=== PATIENT | male | born 1970 | race Caucasian/White ===

== ENCOUNTER 2016-04-05 17:28 | Inpatient (IN) | payer MEDICARE, OTHER ==
[~2016-04-05] VITALS: Ht 177.8 cm; Wt 89.1 kg
[~2016-04-05 17:28] MED LIST: ASPI81 PO; ATOR10 PO; CELL500T PO; METO50TA PO; OMEP20CA5 PO; PRED5SOL PO; PROG1CAP PO
[2016-04-05 20:00] VITALS: BP 140/81; PULSE 68; RESP 22; TEMP 98.5; O2SAT 100
[2016-04-05] MEDS ORDERED: SODIUM CHLOR 0.9% 1000 ML INJ 1,000 ML IV ONE (20:17)
[2016-04-05] MEDS ORDERED: MYCOPHENOLATE MOFETIL 500 MG TAB PO SCH (20:30)
[2016-04-05] MEDS: LACTATED RINGER'S 1000 ML IV SCH (21:00)
[2016-04-05] MEDS: SODIUM CHLORID 0.9% 500 ML IV SCH (21:00)
--- NOTE | 2016-04-05 21:04 | RADRPT ---
EXAM DATE/TIME: 04/05/2016 20:34 [facility] COMPARISON: No previous studies available for comparison. INDICATIONS : Chest pain MEDICAL HISTORY : Hypertension. SURGICAL HISTORY : CABG. ENCOUNTER: Initial ACUITY: 1 day PAIN SCORE: 0/10 LOCATION: chest FINDINGS: A single view of the chest demonstrates the lungs to be symmetrically aerated without evidence of mas s, infiltrate or effusion. The cardiomediastinal contours are unremarkable. Osseous structures are intact. The patient is status post median sternotomy. CONCLUSION: No acute disease. Jose Cruz Mayers MD on April 05, 2016 at 21:02 Board Certified Radiologist. This report was verified electronically.
[2016-04-05 21:51] LABS: AUTOMATED NEUTROPHIL # 4.4 TH/MM3 (1.8-7.7); BASOPHIL # 0.1 TH/MM3 (0-0.2); EOSINOPHIL # 0.2 TH/MM3 (0-0.4); EOSINOPHIL % 3.1 % (0.0-4.0); HEMATOCRIT 29.7 % (39.0-51.0); HEMO FLAGS DIFF FINAL; LYMPH % 22.7 % (9.0-44.0); LYMPHOCYTE # 1.6 TH/MM3 (1.0-4.8); MEAN CELL VOLUME 89.4 FL (80.0-100.0); MEAN CORPUSCULAR HEMOGLOBIN 28.7 PG (27.0-34.0); MEAN CORPUSCULAR HGB CONC 32.1 % (32.0-36.0); MONO % 12.1 % (0.0-8.0); NEUT % 61.1 % (16.0-70.0); PLATELET COUNT 224 TH/MM3 (150-450); RED BLOOD COUNT 3.32 MIL/MM3 (4.50-5.90); RED CELL DISTRIBUTION WIDTH 15.5 % (11.6-17.2); WHITE BLOOD COUNT 7.1 TH/MM3 (4.0-11.0)
[2016-04-05 22:14] LABS: APTT (PATIENT) 31.1 SEC (24.3-30.1); PROTHROMBIN TIME - PATIENT 11.4 SEC (9.8-11.6)
[2016-04-05 22:19] LABS: ANION GAP 11 MEQ/L (5-15); AST (GOT) 7 U/L (15-37); BICARBONATE 25.9 MEQ/L (21.0-32.0); BLOOD UREA NITROGEN 22 MG/DL (7-18); CHLORIDE 101 MEQ/L (98-107); GLOMERULAR FILTRATION RATE 9 ML/MIN (>89); POTASSIUM 4.7 MEQ/L (3.5-5.1); SODIUM (NA) 138 MEQ/L (136-145)
[2016-04-05 22:23] LABS: ALKALINE PHOSPHATASE 123 U/L (45-117); ALT (GPT) 16 U/L (12-78); TOTAL BILIRUBIN ADULT 0.4 MG/DL (0.2-1.0)
[2016-04-05] MEDS ORDERED: methylPREDNISolone SOD SUCC 125 MG/2 ML VIAL ONE (22:47)
[2016-04-05] MEDS ORDERED: diphenhydrAMINE HCL 50 MG/ML VIAL ONE (22:47)
[2016-04-05] MEDS ORDERED: MINERAL OIL 10 ML VIAL ONE (23:45)
[2016-04-05] MEDS ORDERED: SODIUM BICARBONATE 8.4% INJ 50 ML ONE (23:45)
[2016-04-05] MEDS ORDERED: LIDOCAINE HCL 2% 50 ML VIAL ONE (23:45)
[2016-04-05] MEDS ORDERED: BUPIVACAINE HCL PF 0.5% 30 ML VIAL ONE (23:45)
[2016-04-06] VITALS (18 sets, daily range): BP systolic 100–149; BP diastolic 59–75; PULSE 72–128; RESP 16–20; TEMP 98.1–101; O2SAT 96–100
[2016-04-06] MEDS ORDERED: ACETAMINOPHEN 1000 MG/100 ML VIAL IV ONE (00:27)
[2016-04-06] MEDS ORDERED: SODIUM CHLOR 0.9% IV SCH (00:30)
[2016-04-06] MEDS ORDERED: ANTITHYMOCYTE GLOB IV SCH (00:30)
[2016-04-06] MEDS ORDERED: diphenhydrAMINE HCL 50 MG/ML VIAL IV PRN ×2 (00:45→08:15)
[2016-04-06] MEDS ORDERED: SODIUM CHLORID 0.9% IRRIGATION ONE (01:00)
[2016-04-06] MEDS ORDERED: BACITRACIN IRRIGATION ONE (01:00)
[2016-04-06] MEDS: ceFAZolin 2 GM PREMIX 50 ML IV SCH ×2 (01:54→07:00)
[2016-04-06] MEDS ORDERED: methylPREDNISolone SOD SUCC 125 MG/2 ML VIAL ONE (02:08)
[2016-04-06] MEDS ORDERED: BUPIVACAINE HCL PF 0.5% 30 ML VIAL INFIL ONE (02:10)
[2016-04-06] MEDS ORDERED: SODIUM BICARBONATE 8.4% SOLN 50 MEQ/50 ML VIAL XX ONE (02:10)
[2016-04-06] MEDS ORDERED: LIDOCAINE HCL 2% 50 ML VIAL INFIL ONE (02:10)
[2016-04-06] MEDS ORDERED: HEPARIN SODIUM - SQ 10,000 UNITS/ML VIAL ONE (04:02)
[2016-04-06] MEDS ORDERED: HEPARIN SODIUM - SQ 10,000 UNITS/ML VIAL OTHER ONE (04:16)
[2016-04-06 05:00] LABS: BLOOD GAS BASE EXCESS -4.1 mmol/L (-2-2); BLOOD GAS CARBOXYHEMOGLOBIN 1.8 % (0-4); BLOOD GAS HCO3 20 mmol/L (22-26); BLOOD GAS METHEMOGLOBIN 1.2 % (0-2); BLOOD GAS O2 HGB SATURATION 96 % (90-100); BLOOD GAS OXYGEN CONTENT 13.7 Vol % (12.0-20.0); BLOOD GAS PCO2 36 mmHg (38-42); BLOOD GAS PO2 235 mmHg (61-120); BLOOD GAS TOTAL HGB 9.7 G/DL (12.0-16.0); CRITICAL VALUE NO; OXYGEN DEVICE VENTILATOR; TEMP CORR TO 98.6
[2016-04-06 05:01] LABS: DRAW SITE ART LINE; FIO2 55 %; STAT YES
--- NOTE | 2016-04-06 07:31 | MH ---
cc: SEAN NICOLE MD DATE OF ADMISSION: 04/05/2016 ADMITTING DIAGNOSIS HISTORY OF PRESENT ILLNESS Mr. Newman is a 45-year-old male with end-stage renal disease. 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 He at this time undergoes hemodialysis through a left upper extremity AV fistula. His last dialysis was this morning. He states that he makes a scant amount of urine. He is on no immunosuppressive agents anymore. Most recently he had a CABG in May of 2015. He received cardiac clearance in January of 2016. More recently he denies any recent fevers, chills, nausea, vomiting or diarrhea. He has had some scabs on his skin from pruritus. He is breathing comfortably on room air. They will be seeing him to check his vital signs but he is not tachycardiac and he is on room air. PHYSICAL EXAMINATION HEENT: On his physical exam he has moist mucosal membranes. Lungs: Clear to auscultation, good breath sounds bilaterally. Cardiac: Exam shows him to have a regular rate and rhythm. S1-S2, without any murmurs or gallops or rubs. Abdomen: Soft, nontender, nondistended, without any tenderness. His right lower quadrant appears without any lesions or any infection. He has no lower extremity or upper edema. He has some, as mentioned, scabbed areas from him scratching his skin but no none appear infected. He has no lower extremity edema. He has distal pulses palpable at both dorsalis pedis. ASSESSMENT AND PLAN His crossmatch was negative. The kidney has arrived and we await the results of his labs prior to him going to the OR. He has consented for the procedure and he is well aware of the indications, risks and benefits as well as the pre, gualberto and postop events surrounding the procedure. He understands the potential complications. I answered all of his questions as well as his mother's questions as she was also in the room. He will receive mycophenolate and his thymoglobulin order will be relayed to us from on Dr. Romano. Sean Nicole MD RBM/SSB /8:34 PM /7:20 AM
[2016-04-06 07:40] LABS: BLOOD GAS CARBOXYHEMOGLOBIN 1.4 % (0-4); BLOOD GAS HCO3 19 mmol/L (22-26); BLOOD GAS METHEMOGLOBIN 1.3 % (0-2); BLOOD GAS O2 HGB SATURATION 97 % (90-100); BLOOD GAS OXYGEN CONTENT 19.5 Vol % (12.0-20.0); BLOOD GAS PCO2 40 mmHg (38-42); BLOOD GAS PO2 259 mmHg (61-120); BLOOD GAS TOTAL HGB 13.9 G/DL (12.0-16.0); CRITICAL VALUE NO; FIO2 55 %; STAT YES; TEMP CORR TO 98.6
[2016-04-06] MEDS ORDERED: SODIUM CHLOR 0.45% 1000 ML INJ 1,000 ML IV SCH (08:05)
[2016-04-06] MEDS ORDERED: MIDAZOLAM HCL 2 MG/2 ML VIAL ONE (08:10)
[2016-04-06] MEDS ORDERED: fentaNYL CITRATE 250 MCG/5 ML AMP ONE ×2 (08:11)
[2016-04-06] MEDS ORDERED: GLUCAGON 1 MG/ML VIAL OTHER PRN (08:15)
[2016-04-06] MEDS ORDERED: RESP: ALBUTEROL 2.5 MG/IPRATROPIUM 0.5 MG NEB (PRN) INH (08:15)
[2016-04-06] MEDS ORDERED: ONDANSETRON HCL 4 MG/2 ML VIAL IV PRN (08:15)
[2016-04-06] MEDS ORDERED: NALOXONE HCL 0.4 MG/ML AMP IV PRN (08:15)
[2016-04-06] MEDS ORDERED: diphenhydrAMINE HCL 25 MG CAP PO PRN (08:15)
[2016-04-06] MEDS ORDERED: ONDANSETRON INJ 8 MG in DEXTROSE 5% IN WATER INJ 50 ML IV PRN ×2 (08:15)
[2016-04-06] MEDS ORDERED: DEXTROSE 50% IN WATER 50 ML VIAL(D50) IV PUSH PRN (08:15)
[2016-04-06] MEDS ORDERED: DO NOT ADM ANY ANTICOAGULANT DRUGS XX PRN (08:30)
[2016-04-06] MEDS ORDERED: MORPHINE SULFATE 30 MG/30 ML PCA ONE (08:53)
[2016-04-06] MEDS: DEXT 5%-NACL 0.45% 1000 ML INJ 1,000 ML IV SCH (09:00)
[2016-04-06] MEDS: NYSTATIN SUSP 500,000 U/5 ML CUP SWISH-SWAL SCH ×3 (09:00→20:54)
[2016-04-06] MEDS: DOCUSATE SODIUM 100 MG CAP PO SCH ×2 (09:00→20:54)
[2016-04-06] MEDS: CALCIUM CARBONATE 500 MG CHEWABLE TAB CHEW SCH ×2 (09:00→16:05)
[2016-04-06] MEDS: PANTOPRAZOLE SODIUM 40 MG VIAL IV PUSH SCH (09:00)
[2016-04-06] MEDS: MORPHINE SULFATE 30 MG/30 ML PCA IV SCH ×3 (09:14→10:20)
[2016-04-06 09:18] LABS: AUTOMATED NEUTROPHIL # 3.3 TH/MM3 (1.8-7.7); LYMPH % 0.7 % (9.0-44.0); MEAN CELL VOLUME 90.1 FL (80.0-100.0); MEAN CORPUSCULAR HGB CONC 32.2 % (32.0-36.0); MONO % 0.8 % (0.0-8.0); NEUT % 98.5 % (16.0-70.0); PLATELET COUNT 153 TH/MM3 (150-450); RED BLOOD COUNT 2.89 MIL/MM3 (4.50-5.90); RED CELL DISTRIBUTION WIDTH 15.5 % (11.6-17.2); WHITE BLOOD COUNT 3.3 TH/MM3 (4.0-11.0)
[2016-04-06 09:24] LABS: HEMO FLAGS AUTO DIFF
[2016-04-06 09:40] LABS: BICARBONATE 20.3 MEQ/L (21.0-32.0); MAGNESIUM 1.9 MG/DL (1.5-2.5); POTASSIUM 4.8 MEQ/L (3.5-5.1)
--- NOTE | 2016-04-06 09:42 | RADRPT ---
EXAM DATE/TIME: 04/06/2016 08:42 [facility] COMPARISON: CHEST SINGLE AP, April 05, 2016, 20:34. INDICATIONS: Evaluate line placement MEDICAL HISTORY: Hypertension. Renal failure SURGICAL HISTORY: CABG. ENCOUNTER: Subsequent ACUITY: 1 day PAIN SCORE: Non-responsive. LOCATION: Bilateral chest FINDINGS: A left internal jugular central line has its tip in the superior vena cava. There is no pneumothorax . Median sternotomy wires are noted status post cardiac surgery. The heart is enlarged. Mild centr al pulmonary vascular congestion is noted. CONCLUSION: 1. Left internal jugular central line has its tip in the superior vena cava. There is no pneumothor ax. 2. Cardiomegaly. 3. Mild central pulmonary vascular congestion. Axel Cabral MD on April 06, 2016 at 9:34 Board Certified Radiologist. This report was verified electronically.
[2016-04-06 09:53] LABS: CALCIUM-PROTEIN CORRECTED 7.8 MG/DL (8.5-10.1)
[2016-04-06 10:07] LABS: BANDS 10 % (0-6); NEUTROPHIL # MANUAL DIFF 3.3 TH/MM3 (1.8-7.7); OVALOCYTES 1+ (NORMAL); PLATELET ESTIMATE SMEAR NORMAL (NORMAL); PLATELET MORPHOLOGY NORMAL (NORMAL); POLYS (SEG NEUTROPHILS) 89 % (16-70); SCAN/DIFF FINAL DIFF MANUAL; WBC DIFF SAMPLE 100
[2016-04-06] MEDS: INSULIN NovoLIN REGULAR SUPPLEMENTAL SCALE SQ SCH ×3 (10:47→20:54)
--- NOTE | 2016-04-06 11:50 | PD.CONS ---
HPI Service Nephrology Consult Requested By Dr. Nicole Reason for Consult Kidney transplant Primary Care Physician Unknown History of Present Illness Patient is a 45-year-old male with history of previous kidney transplant which failed and he is on hemodialysis has AV fistula left arm, he received a cadaveric kidney transplant offer last night and got admitted to this was carried out early in the morning and that he did well, he did lose blood and his hemoglobin is 8.4, patient is sleeping but arouses with stimulation, he has a previous coronary artery bypass grafting done last year., He is passing small amount of urine postoperatively, his induction was with Solu-Medrol, Thymoglobulin and CellCept, he had previous chronic rejection and is on hemodialysis. Review of Systems Constitutional: COMPLAINS OF: Fatigue Gastrointestinal: COMPLAINS OF: Abdominal pain Past Family Social History Allergies: Coded Allergies: Compazine (Verified Allergy, Severe, 04/08/10) Past Medical History History of lupus Hypertension End-stage renal disease Previous living kidney transplant Atrial fibrillation Coronary artery disease Hyperlipidemia Gout Past Surgical History Previous kidney transplant Coronary artery bypass grafting Left AV fistula Left elbow surgery due to gouty arthritis Reported Medications Reported Meds & Active Scripts Active Reported Prilosec (Omeprazole) 20 Mg Capcr 20 Mg PO DAILY Lipitor (Atorvastatin Calcium) 10 Mg Tab 10 Mg PO HS Lopressor (Metoprolol Tartrate) 50 Mg Tab 50 Mg PO BID Prograf (Tacrolimus) 1 Mg Cap 2 Mg PO DAILY Deltasone (Prednisone) 5 Mg/5 Ml Soln 20 Mg PO DAILY Lipitor (Atorvastatin Calcium) 10 Mg Tab 0 PO DAILY UNKNOWN DOSE Aspirin 81 Mg Tab 81 Mg PO DAILY Cellcept (Mycophenolate Mofetil) 500 Mg Tab 1,000 Mg PO BID Active Ordered Medications Current Medications Medications (Trade) Dose Ordered Sig/Kaylan Route Start Time Stop Time Status Last Admin Sodium Chloride 1,000 ml @ 40 mls/hr Q24H ONCE IV 04/05/16 20:17 04/06/16 20:16 04/05/16 20:17 Lactated Ringer's 1,000 ml @ 30 mls/hr Q24H IV 04/05/16 21:00 Sodium Chloride 500 ml @ 30 mls/hr [id number] IV 04/05/16 21:00 04/06/16 20:59 Dextrose/Sodium Chloride 1,000 ml @ 40 mls/hr Q24H IV 04/06/16 08:05 04/06/16 09:00 (1/2 NS 1000 ml Inj) 1,000 ml @ 0 mls/hr Q0M IV 04/06/16 08:05 (Cellcept) 1,000 mg BID@,18 PO 04/07/16 06:00 (Mycostatin Liq) 5 ml TID@,, SWISH-SWAL 04/06/16 09:00 (Bactrim Ds 800-160 Mg) 1 tab MoWeFr@09 PO 04/07/16 09:00 Valganciclovir 900 mg 900 mg DAILY PO 04/06/16 09:00 (Ancef Inj/NS Inj) 100 ml @ 200 mls/hr Q24H IV 04/07/16 02:00 04/08/16 02:29 (Protonix Inj) 40 mg DAILY IV PUSH 04/06/16 09:00 (Tums Chew) 500 mg BID@,16 CHEW 04/06/16 09:00 (Colace) 100 mg BID PO 04/06/16 09:00 (Dulcolax Ec) 10 mg UNSCH PRN PO 04/09/16 08:15 04/09/16 08:16 (Dulcolax Supp) 10 mg UNSCH PRN RECTAL 04/09/16 08:15 04/09/16 08:16 Ondansetron HCl 4 mg 4 mg Q6H PRN IV 04/06/16 08:15 (Zofran Inj/D5W Inj) 54 ml @ 200 mls/hr Q6H PRN IV 04/06/16 08:15 (Benadryl) 25 mg Q6H PRN PO 04/06/16 08:15 (Benadryl Inj) 25 mg Q6H PRN IV 04/06/16 08:15 (Narcan Inj) 0.4 mg UNSCH PRN IV 04/06/16 08:15 (Morphine 1 Mg/ ml CALCINER FEEDER) 30 mg UNSCH IV 04/06/16 08:15 04/06/16 09:14 CALCINER FEEDER Dosage Infused (Pha) 1 Q8HR .XX 04/06/16 14:00 (D50w (Vial) Inj) 25 ml UNSCH PRN IV PUSH 04/06/16 08:15 (Glucagon Inj) 1 mg UNSCH PRN OTHER 04/06/16 08:15 Miscellaneous Information ALL NURSING DEPARTME... UNSCH PRN XX 04/06/16 08:30 04/07/16 08:29 Family History Noncontributory Social History Denies smoking or alcohol use Physical Exam Vital Signs Vital Signs Date Time Temp Pulse Resp B/P Pulse Ox O2 Delivery O2 Flow Rate FiO2 04/06/16 11:08 100.6 111 18 146/74 100 04/06/16 11:06 111 04/06/16 10:32 114 04/06/16 10:28 99 Nasal Cannula 3.00 04/06/16 10:26 101.0 116 20 149/75 99 04/06/16 10:20 18 04/06/16 09:45 99.0 105 15 158/87 99 Nasal Cannula 2 04/06/16 09:30 107 13 155/87 99 Nasal Cannula 2 04/06/16 09:15 100 16 150/84 95 Nasal Cannula 2 04/06/16 09:14 15 04/06/16 09:00 102 14 158/86 98 Nasal Cannula 2 04/06/16 09:00 04/06/16 08:45 105 15 156/87 98 Nasal Cannula 2 04/06/16 08:32 99.2 111 16 123/77 99 Simple Mask 6 04/06/16 00:00 72 04/05/16 20:00 98.5 68 22 140/81 100 Physical Exam GENERAL: Well-nourished, well-developed patient. SKIN: Warm and dry. HEAD: Normocephalic. EYES: No scleral icterus. No injection or drainage. NECK: Supple, trachea midline. No JVD or lymphadenopathy. CARDIOVASCULAR: Regular rate and rhythm without murmurs, gallops, or rubs. RESPIRATORY: Breath sounds equal bilaterally. No accessory muscle use. GASTROINTESTINAL: Abdomen soft, surgical scar on the left side, nondistended. EXTREMITIES: No cyanosis, or edema. NEUROLOGICAL: Sleeping Awaken on verbal stimuli, alert, and oriented x 3. Non- focal. Laboratory Laboratory Tests Test 04/05/16 04/06/16 04/06/16 04/06/16 21:15 04:37 07:09 09:00 White Blood Count 7.1 3.3 Red Blood Count 3.32 2.89 Hemoglobin 9.5 8.4 Hematocrit 29.7 26.0 Mean Corpuscular Volume 89.4 90.1 Mean Corpuscular Hemoglobin 28.7 29.0 Mean Corpuscular Hemoglobin 32.1 32.2 Concent Red Cell Distribution Width 15.5 15.5 Platelet Count 224 153 Mean Platelet Volume 8.8 8.6 Neutrophils (%) (Auto) 61.1 98.5 Lymphocytes (%) (Auto) 22.7 0.7 Monocytes (%) (Auto) 12.1 0.8 Eosinophils (%) (Auto) 3.1 0.0 Basophils (%) (Auto) 1.0 0.0 Neutrophils # (Auto) 4.4 3.3 Lymphocytes # (Auto) 1.6 0.0 Monocytes # (Auto) 0.9 0.0 Eosinophils # (Auto) 0.2 0.0 Basophils # (Auto) 0.1 0.0 CBC Comment DIFF FINAL AUTO DIFF Differential Comment FINAL DIFF MANUAL Prothrombin Time 11.4 Prothromb Time International 1.0 Ratio Activated Partial 31.1 Thromboplast Time Sodium Level 138 140 Potassium Level 4.7 4.8 Chloride Level 101 108 Carbon Dioxide Level 25.9 20.3 Anion Gap 11 12 Blood Urea Nitrogen 22 27 Creatinine 6.77 7.42 Estimat Glomerular Filtration 9 8 Rate Random Glucose 76 86 Calcium Level 7.9 7.3 Total Bilirubin 0.4 Aspartate Amino Transf 7 (AST/SGOT) Alanine Aminotransferase 16 (ALT/SGPT) Alkaline Phosphatase 123 Total Protein 7.3 6.1 Albumin 3.5 Blood Type O POSITIVE Antibody Screen NEGATIVE Crossmatch Leukocyte-Reduced Red Blood Cells Blood Bank Comment Blood Gas Puncture Site ART LINE DRAWN IN OR Blood Gas Patient Temperature 98.6 98.6 Blood Gas HCO3 20 19 Blood Gas Base Excess -4.1 -6.0 Blood Gas Oxygen Saturation 96 97 Arterial Blood pH 7.37 7.31 Arterial Blood Partial 36 40 Pressure CO2 Arterial Blood Partial 235 259 Pressure O2 Arterial Blood Oxygen Content 13.7 19.5 Arterial Blood 1.8 1.4 Carboxyhemoglobin Arterial Blood Methemoglobin 1.2 1.3 Blood Gas Hemoglobin 9.7 13.9 Oxygen Delivery Device VENTILATOR Blood Gas Ventilator Setting Blood Gas Inspired Oxygen 55 55 Differential Total Cells 100 Counted Neutrophils % (Manual) 89 Band Neutrophils % 10 Lymphocytes % 1 Neutrophils # (Manual) 3.3 Platelet Estimate NORMAL Platelet Morphology Comment NORMAL Ovalocytes 1+ Protein Corrected Calcium 7.8 Phosphorus Level 4.0 Magnesium Level 1.9 Result Diagram: 04/06/16 0900 04/06/16 0900 Imaging Last Impressions Chest X-Ray 04/06/16 0000 Signed Impressions: Service Date/Time: Wednesday, April 06, 2016 08:42 - CONCLUSION: 1. Left internal jugular central line has its tip in the superior vena cava. There is no pneumothorax. 2. Cardiomegaly. 3. Mild central pulmonary vascular congestion. Axel Cabral MD Assessment and Plan Problem List: (1) Kidney transplant status, cadaveric Plan: Patient received kidney transplant and we will continue to monitor his progress urine output is low and this is being monitored, he will receive Thymoglobulin and steroids tomorrow as well maintain on current medications, he did have some side effects from Thymoglobulin and developed fever, white blood cell count is lower , hemoglobin is 8.4 and this is being observed I have discussed with Dr. Nicole (2) Hypertension Plan: Blood pressure is stable Sylvester Romano MD Apr 06, 2016 11:50
[2016-04-06] MEDS ORDERED: ePHEDrine/NS 50 MG/5 ML SYR IV ONE (12:00)
[2016-04-06] MEDS ORDERED: PHENYLEPH/NS 1000 MCG/10 ML SYR IV ONE (12:00)
[2016-04-06] MEDS ORDERED: NEOSTIGMINE 3 MG/3 ML SYR IV ONE (12:00)
[2016-04-06] MEDS ORDERED: PROPOFOL 200 MG/20 ML AMP IV ONE (12:00)
[2016-04-06] MEDS ORDERED: SODIUM CHLOR 0.9% 1000 ML INJ 3,000 ML IV ONE (12:00)
[2016-04-06] MEDS ORDERED: ONDANSETRON HCL 4 MG/2 ML VIAL IV PUSH ONE (12:00)
[2016-04-06] MEDS: SODIUM CHLORID 0.9% 500 ML IV SCH (12:50)
[2016-04-06] MEDS ORDERED: METOPROLOL TARTRATE 5 MG/5 ML VIAL ONE (13:23)
[2016-04-06] MEDS ORDERED: DILTIAZEM HCL 25 MG/5 ML VIAL ONE (13:43)
[2016-04-06] MEDS: PCA - TOTAL MG MORPHINE DELIVERED PER SHIFT SCH ×2 (14:00→22:00)
--- NOTE | 2016-04-06 14:17 | EKG ---
Date Performed: 04/05/2016 Time Performed: 21:03:48 PTAGE: 45 years EKG: Sinus rhythm with borderline 1st degree A-V block Prolonged QT interval Extensive ST-T changes may be due to myoc ardial ischemia Since previous tracing, no significant change noted Abnormal ECG PREVIOUS TRACING : 04/08/2010 18.11 DOCTOR: oM Graham Interpretating Date/Time 04/06/2016 14:07:29
[2016-04-06] MEDS ORDERED: METOPROLOL TARTRATE 50 MG TAB ONE (14:32)
[2016-04-06] MEDS ORDERED: DILTIAZEM HCL 25 MG/5 ML VIAL IV ONE (15:00)
[2016-04-06] MEDS: LACTATED RINGER'S 1000 ML IV SCH (21:00)
--- NOTE | 2016-04-06 21:11 | MP ---
cc: FARAZ GALINDO MD DATE OF SURGERY: 04/06/2016 PREOPERATIVE DIAGNOSIS: Chronic renal failure. POSTOPERATIVE DIAGNOSIS: Chronic renal failure. OPERATIVE PROCEDURE Exploration of the external iliac artery, endarterectomy of the external iliac artery on the left, and anastomosis of renal allograft to the external iliac artery. SURGEON Dr. Galindo BUNCHER HAND: Dr. Nicole. ANESTHESIA: General. ESTIMATED BLOOD LOSS: 100 cc INDICATIONS FOR PROCEDURE This gentleman is undergoing renal transplant to the left renal inguinal by Dr. Nicole. I was called to assist with this particular part of the procedure as above-noted. On my arrival, the patient was already prepped and draped and the vessels were exposed. The external iliac artery is now visualized, so is the external iliac vein. The vein is soft. On the other hand, the artery is like a lead pipe. It is very atherosclerotic with firm material in it. The soft spot is found, which is sort of soft and distally, and this would allow for placement to find DeBakey clamp proximally. The patient has a huge plaque and then another softer spot is found about three inches up. Here another angled Donald clamp is placed. The vessels are opened longitudinally with an 11 blade and straight scissors because Vences scissors are just too week to go through this material. Very carefully the vessel is endarterectomized using [place] dissector. Large pieces are removed with the help of a small mosquito and then proximal and distal flow is assessed. Proximal inflow now is superb and back bleeding is fine. At this point Dr. Nicole completed a venous anastomosis to the graft and I completed the arterial anastomosis with several strands of running 5-0 Prolene on CC1 needle. When this is completed, the blood flow is re-established in the usual order and fashion. Meticulous hemostasis assured and the area irrigated. At that point I left the room and Dr. Nicole completed the procedure. Faraz NEWTON/KRISTI /1:38 PM /9:00 PM NICKI
[2016-04-07] VITALS (11 sets, daily range): BP systolic 92–154; BP diastolic 50–85; PULSE 83–138; RESP 12–20; TEMP 98.1–98.7; O2SAT 94–99
[2016-04-07 04:53] LABS: AUTOMATED NEUTROPHIL # 14.2 TH/MM3 (1.8-7.7); BASOPHIL % 0.2 % (0.0-2.0); EOSINOPHIL % 0.1 % (0.0-4.0); HEMATOCRIT 24.9 % (39.0-51.0); LYMPH % 1.7 % (9.0-44.0); LYMPHOCYTE # 0.2 TH/MM3 (1.0-4.8); MEAN CELL VOLUME 89.8 FL (80.0-100.0); MEAN CORPUSCULAR HGB CONC 32.3 % (32.0-36.0); MONO % 3.3 % (0.0-8.0); NEUT % 94.7 % (16.0-70.0); PLATELET COUNT 151 TH/MM3 (150-450); RED BLOOD COUNT 2.77 MIL/MM3 (4.50-5.90); RED CELL DISTRIBUTION WIDTH 15.7 % (11.6-17.2)
[2016-04-07] MEDS: MYCOPHENOLATE MOFETIL 500 MG TAB PO SCH ×2 (05:22→17:00)
[2016-04-07 05:23] LABS: BICARBONATE 19.9 MEQ/L (21.0-32.0); MAGNESIUM 2.3 MG/DL (1.5-2.5)
[2016-04-07] MEDS: PCA - TOTAL MG MORPHINE DELIVERED PER SHIFT SCH ×3 (05:26→22:00)
[2016-04-07 05:39] LABS: POTASSIUM 6.7 MEQ/L (3.5-5.1)
[2016-04-07 05:51] LABS: HEMO FLAGS AUTO DIFF
[2016-04-07 05:53] LABS: CALCIUM-PROTEIN CORRECTED 7.3 MG/DL (8.5-10.1)
[2016-04-07] MEDS: INSULIN NovoLIN REGULAR SUPPLEMENTAL SCALE SQ SCH ×4 (05:54→21:00)
--- NOTE | 2016-04-07 08:17 | MB ---
cc: SEAN NICOLE MD DATE OF CONSULTATION: 04/07/2016 This morning Mr. Newman is awake, alert and in bed. He is oriented to place and time and answering questions and responding appropriately. Overnight he states that he was comfortable and was able to get sleep off and on. He has no complaints of pain this morning. He has been taking ice chips and has not had any flatus. He was afebrile overnight, his blood pressures have been in the systolic of one teens, his heart rates have been in the 90s. He was reported to have atrial fibrillation overnight without any drops in his blood pressure and appears to have been rate controlled. On physical exam he appears to be minimally edematous. His dressing is dry without any new areas of bleeding. His Franklyn drain shows some serosanguineous drainage. He drained 25 ccs Overnight. His Weeks shows some blood-tinged urine and he produced 75 ccs of urine overnight. Distally as mentioned he is not as edematous. His labs show a potassium of 6.7, his creatinine is 9.9. His white count is in the low teens. ASSESSMENT/PLAN Mr. Newman appears to be recovering well. His allograft has began to produce volume. Because of his serum potassium he will most likely require dialysis. He had a fair amount of intraoperative blood loss and has had atrial fibrillation as well as a relatively lower baseline blood pressure accompanied with a higher than his usual baseline heart rate. I suspect this may be secondary to his acute blood and volume loss. This morning he is in sinus but he remains relatively higher than baseline heart rate. In addition, his urine output appears marginal, although this may be secondary to his longer cold ischemia time. We will monitor to determine if it would be of utility for him to receive some packed cells during the time of his blood transfusion. We can advance his diet to include clear liquids and I have also instructed him to avoid being fully upright in a chair until at least another 24 hours. Sean Nicole MD [facility]/TLL /7:49 AM /8:06 AM
[2016-04-07] MEDS: CALCIUM CARBONATE 500 MG CHEWABLE TAB CHEW SCH ×2 (08:36→16:21)
[2016-04-07] MEDS: PANTOPRAZOLE SODIUM 40 MG VIAL IV PUSH SCH (08:36)
[2016-04-07] MEDS: SULFAMETHOXAZOLE-TRIMETHOPRIM DS 800-160 MG TAB PO SCH (08:36)
[2016-04-07] MEDS: DOCUSATE SODIUM 100 MG CAP PO SCH ×2 (08:36→21:00)
[2016-04-07] MEDS: NYSTATIN SUSP 500,000 U/5 ML CUP SWISH-SWAL SCH ×3 (08:36→21:00)
[2016-04-07] MEDS: DEXT 5%-NACL 0.45% 1000 ML INJ 1,000 ML IV SCH (08:39)
[2016-04-07 09:03] LABS: BANDS 21 % (0-6); NEUTROPHIL # MANUAL DIFF 14.4 TH/MM3 (1.8-7.7); PLATELET ESTIMATE SMEAR NORMAL (NORMAL); PLATELET MORPHOLOGY NORMAL (NORMAL); POLYS (SEG NEUTROPHILS) 75 % (16-70); WBC DIFF SAMPLE 100
[2016-04-07 09:04] LABS: OVALOCYTES 1+ (NORMAL); SCAN/DIFF FINAL DIFF MANUAL
--- NOTE | 2016-04-07 09:26 | HHI.NPPN ---
Subjective History of Present Illness 45 year old male Kidney transplant # 2 Additional Remarks had ATN/Developed atria fibrillation Review of Systems Gastrointestinal Gastrointestinal: Abdominal Pain Objective Data Data 04/06/16 04/07/16 19:00 07:00 Intake Total 4419 ml 821 ml Output Total 911 ml 141 ml Balance 3508 ml 680 ml Intake Oral 100 ml 240 ml IV Total 319 ml 581 ml Other 4000 ml Output Urine Total 76 ml 116 ml Drainage Total 10 ml 25 ml Estimated Blood Loss 800 ml Other 25 ml # Bowel Movements 0 0 Vital Signs Date Time Temp Pulse Resp B/P Pulse Ox O2 Delivery O2 Flow Rate FiO2 04/07/16 08:00 98.4 98 17 126/69 98 122/74 04/07/16 07:22 99 21 04/07/16 07:00 98 04/07/16 05:26 15 04/07/16 03:50 98.2 83 17 109/77 98 108/65 04/07/16 03:50 94 04/06/16 23:53 88 04/06/16 23:53 98.6 97 16 100/59 98 114/65 04/06/16 22:00 15 04/06/16 19:45 96 Nasal Cannula 3.00 04/06/16 19:17 98.1 99 20 107/62 99 04/06/16 19:00 95 04/06/16 18:02 103 04/06/16 17:06 105 04/06/16 16:02 112 04/06/16 15:03 100.5 128 17 104/67 98 04/06/16 15:01 128 04/06/16 14:08 127 04/06/16 14:00 18 04/06/16 13:02 127 04/06/16 12:02 125 04/06/16 11:08 100.6 111 18 146/74 100 04/06/16 11:06 111 04/06/16 10:32 114 04/06/16 10:28 99 Nasal Cannula 3.00 04/06/16 10:26 101.0 116 20 149/75 99 04/06/16 10:20 18 04/06/16 09:45 99.0 105 15 158/87 99 Nasal Cannula 2 04/06/16 09:30 107 13 155/87 99 Nasal Cannula 2 -: 04/07/16 0433 04/07/16 043 Physical Exam General Appearance: Well Developed Eyes Eye Exam: Pupils Equal Neck Neck Exam: Neck Supple Pulmonary Resp Exam: Decreased Bases Cardiology CV Exam: Arrhythmia Gastrointestinal/Abdomen GI Exam: Soft (surgical incision left lower abdomen) Extremeties Extremities Exam: Trace Edema Neurologic Neuro Exam: Alert Assessment/Plan Problem List: (1) Kidney transplant status, cadaveric Plan: he is seen during hemodialysis UF 2.5 L off continue to monitor heart rate restart Lopressor 25 mg bid BP low hold off transfusion for less then 7 Hb as high risk for rejection continue with Thymoglobulin post dialysis (2) Hypertension Plan: Blood pressure is stable (3) Atrial fibrillation Plan: monitor and start Lopressor (4) Hyperkalemia Plan: seen during hemodialysis Sylvester Romano MD Apr 07, 2016 09:26
[2016-04-07] MEDS ORDERED: SODIUM CHLOR 0.9% 1000 ML INJ 1,000 ML IV PRN ×3 (09:27)
[2016-04-07] MEDS ORDERED: diphenhydrAMINE HCL 25 MG CAP PO PRN (09:30)
[2016-04-07] MEDS ORDERED: HEPARIN SODIUM - IV 10,000 UNITS/10 ML VIAL IVF PRN (09:30)
[2016-04-07] MEDS ORDERED: MANNITOL 12.5 GM/50 ML VIAL IV PRN (09:30)
[2016-04-07] MEDS ORDERED: ONDANSETRON HCL 4 MG/2 ML VIAL IV PRN (09:30)
[2016-04-07] MEDS ORDERED: NITROGLYCERIN 0.4 MG SL 25 TABS/BTL SL PRN (09:30)
[2016-04-07] MEDS ORDERED: ACETAMINOPHEN 325 MG TAB PO PRN (09:30)
[2016-04-07] MEDS ORDERED: ALBUMIN HUMAN 25% 25 GM/100 ML BAGP IV PRN (09:30)
[2016-04-07] MEDS: METOPROLOL TARTRATE 5 MG/5 ML VIAL IV PRN ×3 (09:41→23:06)
--- NOTE | 2016-04-07 09:48 | RADRPT ---
EXAM DATE/TIME: 04/07/2016 09:02 [facility] COMPARISON: CHEST SINGLE AP, April 06, 2016, 8:42. INDICATIONS : Short of breath. Evaluate pneumonia. MEDICAL HISTORY : Hypertension. Renal failure SURGICAL HISTORY : CABG. ENCOUNTER: Subsequent ACUITY: 3 days PAIN SCORE: 3/10 LOCATION: Bilateral chest FINDINGS: Next central line is stable in position. Lungs are focally clear no effusion is suspected. Cardiomedi astinal contours are stable and satisfactory. There's been previous sternotomy. CONCLUSION: Stable chest appearance with no focal disease Spencer Gomez MD on April 07, 2016 at 9:44 Board Certified Radiologist. This report was verified electronically.
[2016-04-07] MEDS: METOPROLOL TARTRATE 25 MG TAB PO SCH ×2 (11:43→21:00)
[2016-04-07] MEDS ORDERED: methylPREDNISolone SOD SUCC 125 MG/2 ML VIAL IV PUSH ONE (12:00)
[2016-04-07] MEDS ORDERED: diphenhydrAMINE HCL 50 MG CAP PO ONE (12:00)
[2016-04-07] MEDS ORDERED: ACETAMINOPHEN 325 MG TAB PO ONE (12:00)
[2016-04-07] MEDS ORDERED: THYMOGLOBULIN ANAPYLAXIS KIT MISC XX PRN (12:30)
[2016-04-07] MEDS ORDERED: ANTITHYMOCYTE GLOB IV-CENTRAL ONE (13:00)
[2016-04-07] MEDS ORDERED: SODIUM CHLORID 0.9% IV-CENTRAL ONE (13:00)
--- NOTE | 2016-04-07 13:07 | MP ---
cc: SEAN CAIN MD DATE OF SURGERY: 04/06/2016 SURGEON Gary Corey TECHNICAL ENGINEER Gaudencio Diaz PREOPERATIVE DIAGNOSIS End-stage renal disease. POSTOPERATIVE DIAGNOSIS End-stage renal disease. PROCEDURE PERFORMED donor allograft back table preparation. PROCEDURE The allograft was removed from its preservative solution for examination and transferred to the dissecting basin. Care was used to ensure the allograft was fully submerged in the cold preservative solution. 4-0 silk stay sutures were placed on the corners of the vein as well as the aortic patch. The ureter was exposed by retracting perpendicular to the stay sutures. Excess fat was trimmed in the regions of the cortex of the kidney. Exposed vessels near the exposed lymphatics from the hilum were ligated with 3-0 silk. The tissue pedicle to the inferior portion of the ureter was preserved and trimmed to size using sharp dissection and ligature. The hilar dissection proceeded with separation of the artery and the vein followed by dissecting off excess adventitial and lymphatic tissue surrounding the cava and the renal vein. This was done for exposure without undue skeletonization of the renal vein. Similar process was used to identify, dissect and expose the renal artery. Once fully both vascular structures were tested for leaks. Once the vessels were tested with no leaks confirmed, the graft was then returned to the preservative solution until the need for surgical anastomosis on the operating field. MD LARISSA cOhoa/MEGA /12:46 PM /1:00 PM N[facility]
--- NOTE | 2016-04-07 13:15 | MP ---
cc: SEAN NICOLE MD DATE OF SURGERY: 04/06/[address] Gary Nicole. SAW TAILER Gaudencio Diaz. PREOPERATIVE DIAGNOSIS End-stage renal disease. POSTOPERATIVE DIAGNOSIS End-stage renal disease. PROCEDURE PERFORMED 1. donor kidney transplant. 2. External iliac artery endarterectomy. 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 He is here back to receive a kidney from a donor. INTRAOPERATIVE FINDINGS 1. Previous kidney transplant graft and incision on the right side. 2. Normal anatomic relationship between external iliac artery and external iliac vein. 3. Severely atherosclerotic with dense heavy plaque on left external iliac artery. 4. Adherent adventitial and periadventitial tissue surrounding the external iliac artery and the external iliac vein. PROCEDURE The patient received prophylactic intravenous antibiotics followed by inhalational intravenous anesthetic agents prior to endotracheal intubation. He had previously received Thymoglobulin and steroids for induction. He was then positioned, prepped and draped in sterile fashion. A left lower quadrant curvilinear incision was then performed with division of the external and internal oblique muscles and preservation of rectus. Of note, local anesthetic was infiltrated to the intended incision line using Marcaine and lidocaine solution. En route the inferior epigastrics were also calcified and were divided. The spermatic cord was preserved and retracted medially. Once the peritoneum was visualized, it was mobilized medially so as to expose the retroperitoneum. A Bookwalter retractor was placed to afford optimum exposure. The hepatics and the tissue overlying the iliac vessels were carefully dissected and ligated using silk ties and surgical clips. It was at this time that the heavily calcified external iliac artery was noted and a vascular surgery consult was obtained from Dr. Flowers. He performed a endarterectomy with the occluded clamps in place. He will be dictating this portion of the procedure. Once the endarterectomy was performed a Satinsky clamp was placed on the external iliac vein and a longitudinal venotomy was performed. The renal vein to the external iliac vein anastomosis was performed using continuous 5-0 Prolene suture. With the vascular clamps already on the external iliac artery, the anastomosis was performed using a continuous 6-0 Prolene suture. Prior to completion of each anastomosis the vessels were irrigated and heparinized with saline. With completion of the arterial anastomosis, the vascular clamps were released with good perfusion of the allograft. The bladder was then filled with antibiotic solution and mucosa was exposed for implantation. The area was trimmed to size, spatulated, with the mucosa opened a ureteroneocystostomy was performed using continuous 6-0 PDS suture. Anastomosis was then placed under vascularized tissue using the runner suture. Hemostasis in the dissection area was achieved. Urine was minimally produced by the allograft prior to implantation of the ureter. A 19-Danish Franklyn drain was used in the wound cavity and incision was then closed using a two-layer closure. Prior to closure there was bleeding from the arterial anastomotic line that required reinforcement with a 6-0 PDS suture. Both abdominal muscle layers were closed using #1 PDS suture. The skin was approximated using vito. The patient tolerated the procedure well. Blood loss was between 600 to 800 ccs. This was incurred during the endarterectomy as well as during the reinforcement of the arterial anastomosis ___. The patient was extubated in the operating room and transferred to the PACU in hemodynamically stable condition. MD LARISSA Ochoa/JALEN /12:39 PM /12:50 PM NICKI
[2016-04-07] MEDS ORDERED: PRAV10TA PO (13:40)
[2016-04-07] MEDS ORDERED: OMEP20TA PO (13:40)
[2016-04-07] MEDS ORDERED: CLON0.1T PO (13:40)
[2016-04-07] MEDS ORDERED: ASPI81TA11 PO (13:40)
[2016-04-07] MEDS ORDERED: LABE300T PO (13:40)
[2016-04-07] MEDS ORDERED: DIGOXIN 0.5 MG/2 ML VIAL ONE (15:17)
[2016-04-07] MEDS ORDERED: DIGOXIN 0.5 MG/2 ML VIAL IV PUSH ONE (15:45)
[2016-04-08] VITALS (21 sets, daily range): BP systolic 126–154; BP diastolic 72–93; PULSE 68–100; RESP 12–20; TEMP 98–98.7; O2SAT 94–98
[2016-04-08] MEDS: cloNIDine HCL 0.1 MG TAB PO PRN (03:27)
[2016-04-08] MEDS: METOPROLOL TARTRATE 5 MG/5 ML VIAL IV PRN (05:20)
[2016-04-08] MEDS: MYCOPHENOLATE MOFETIL 500 MG TAB PO SCH ×2 (05:20→17:11)
[2016-04-08] MEDS: PCA - TOTAL MG MORPHINE DELIVERED PER SHIFT SCH ×3 (05:20→22:00)
[2016-04-08 06:04] LABS: AUTOMATED NEUTROPHIL # 8.5 TH/MM3 (1.8-7.7); HEMATOCRIT 23.8 % (39.0-51.0); HEMO FLAGS DIFF FINAL; LYMPH % 1.8 % (9.0-44.0); LYMPHOCYTE # 0.2 TH/MM3 (1.0-4.8); MEAN CELL VOLUME 88.1 FL (80.0-100.0); MEAN CORPUSCULAR HEMOGLOBIN 29.2 PG (27.0-34.0); MEAN CORPUSCULAR HGB CONC 33.1 % (32.0-36.0); MONO % 3.5 % (0.0-8.0); NEUT % 94.7 % (16.0-70.0); PLATELET COUNT 129 TH/MM3 (150-450); RED CELL DISTRIBUTION WIDTH 15.3 % (11.6-17.2); WHITE BLOOD COUNT 8.9 TH/MM3 (4.0-11.0)
[2016-04-08 06:20] LABS: BICARBONATE 25.3 MEQ/L (21.0-32.0); MAGNESIUM 2.1 MG/DL (1.5-2.5); POTASSIUM 5.5 MEQ/L (3.5-5.1)
[2016-04-08] MEDS: INSULIN NovoLIN REGULAR SUPPLEMENTAL SCALE SQ SCH ×4 (06:36→22:25)
[2016-04-08] MEDS: NYSTATIN SUSP 500,000 U/5 ML CUP SWISH-SWAL SCH ×3 (08:43→20:59)
[2016-04-08] MEDS: CALCIUM CARBONATE 500 MG CHEWABLE TAB CHEW SCH ×2 (08:43→17:10)
[2016-04-08] MEDS: PANTOPRAZOLE SODIUM 40 MG VIAL IV PUSH SCH (08:43)
[2016-04-08] MEDS: DOCUSATE SODIUM 100 MG CAP PO SCH ×2 (08:44→20:59)
[2016-04-08] MEDS: METOPROLOL TARTRATE 25 MG TAB PO SCH ×2 (08:44→20:59)
--- NOTE | 2016-04-08 09:02 | MB ---
cc: SEAN CAIN MD DATE OF CONSULTATION 04/08/2016 REASON FOR CONSULTATION Progress note Mr. Newman is awake, alert and oriented as well as interactive this morning. He is in a semi-reclined position in his bed. Overnight he reports no problems. He was able to sleep better. He denies any passage of flatus, but has been tolerating his clear liquids. There were times of elevated blood pressures and episodes of going in and out of atrial fibrillation, but this was controlled with antiarrhythmics. He was given digoxin and started on some his meds from home. He also appears to be tolerating his p.o. medications well. His T-max was 98.7, his pulse has been better controlled in the 90s and he appears to be in sinus. He is on room air breathing at 12-16. His blood pressure systolic is in the 140's-150's. He is sating around 94-95%. His I's and O's, he was dialyzed for 2500 yesterday. His oral intake was two liters and his urine output was a total of 34 cc. His Franklyn drain put out 20 cc over 24 hours. He has had no bowel movement. His weight is approximately 67 kg above his baseline. PHYSICAL EXAM On exam, his incision looks clean and dry, intact with minimal to no areas of ecchymoses or erythema. There is no leakage or drainage from the wound site. There are no areas of fluctuance. His drain site looks clean and dry without any leak or discharge. He is draining serosanguineous fluid. Urine output is minimal with fine blood sediment. His extremities show minimal edema. LABORATORY DATA His labs show his white count is down to 8.9. His hematocrit is 23.8. His platelet count is 129. His lymphocyte number is 0.2. His creatinine is down to 8.22 after dialysis. His potassium is now down to 5.5 and his sodium is 135. His phosphorus is slightly higher than yesterday at 6.1, mag is 2.1 and his calcium is corrected at 7.7. His x-ray from yesterday showed a stable chest appearance with no focal disease and the review of the image shows that there appears to be not much in the way of edema. ASSESSMENT/PLAN Mr. Newman appears to be continuing to improve. In discussion with Dr. Romano, we have held on giving a transfusion due to concerns over increasing his sensitization in light of his high PRA. We received his Thymoglobulin yesterday. Today we will discontinue his arterial line, as well as a CVP readings and we will increase his activity to be able to be out of bed to a chair. His GI tract remains less active with scant bowel sounds, so we will keep him on clear liquids. In addition, his ECHOCARDIOGRAPHY TECH will be kept on for one more day as he increases his activity to provide a gradual transition to p.o. analgesics. MD LARISSA Ochoa/ELDON /7:53 AM /8:48 AM
--- NOTE | 2016-04-08 11:05 | HHI.NPPN ---
Subjective History of Present Illness 45 year old male Kidney transplant # 2 Additional Remarks had ATN converted to NSR Review of Systems Gastrointestinal Gastrointestinal: Abdominal Pain Objective Data Data 04/07/16 04/08/16 19:00 07:00 Intake Total 2047 ml 1550 ml Output Total 2534 ml 20 ml Balance -487 ml 1530 ml Intake Oral 1040 ml 960 ml IV Total 1007 ml 590 ml Output Urine Total 24 ml 10 ml Drainage Total 10 ml 10 ml Hemodialysis 2500 ml # Bowel Movements 0 0 Vital Signs Date Time Temp Pulse Resp B/P Pulse Ox O2 Delivery O2 Flow Rate FiO2 04/08/16 08:00 98.0 92 12 154/93 94 140/77 04/08/16 07:00 94 04/08/16 05:20 16 04/08/16 03:00 100 04/08/16 03:00 98.7 99 12 147/79 94 139/78 04/07/16 23:00 99 04/07/16 23:00 98.7 99 12 154/85 95 145/81 04/07/16 22:00 16 04/07/16 19:15 98.1 101 16 138/82 94 132/76 04/07/16 19:00 106 04/07/16 15:30 116 04/07/16 15:27 98.4 116 20 96/62 97 04/07/16 14:00 18 04/07/16 11:09 98.2 98 17 112/65 98 -: 04/08/16 0500 04/08/16 0500 Physical Exam General Appearance: Well Developed Eyes Eye Exam: Pupils Equal Neck Neck Exam: Neck Supple Pulmonary Resp Exam: Decreased Bases Cardiology CV Exam: Tachycardia Gastrointestinal/Abdomen GI Exam: Soft (surgical incision left lower abdomen) Extremeties Extremities Exam: Trace Edema Neurologic Neuro Exam: Alert Assessment/Plan Problem List: (1) Kidney transplant status, cadaveric Plan: UOP Low Cr slight decline after dialysis K down 5.5 follow UOP H/H lower continue with Thymoglobulin (2) Hypertension Plan: Blood pressure is stable (3) Atrial fibrillation Plan: currently NSR (4) Hyperkalemia Plan: follow Sylvester Romano MD Apr 08, 2016 11:05
[2016-04-08] MEDS ORDERED: THYMOGLOBULIN ANAPYLAXIS KIT MISC XX PRN (11:15)
[2016-04-08] MEDS ORDERED: ACETAMINOPHEN 325 MG TAB PO ONE (11:45)
[2016-04-08] MEDS ORDERED: methylPREDNISolone SOD SUCC 125 MG/2 ML VIAL IV PUSH ONE (12:00)
[2016-04-08] MEDS ORDERED: diphenhydrAMINE HCL 50 MG CAP PO ONE (12:00)
[2016-04-08] MEDS ORDERED: ANTITHYMOCYTE GLOB IV-CENTRAL ONE (13:00)
[2016-04-08] MEDS ORDERED: SODIUM CHLORID 0.9% IV-CENTRAL ONE (13:00)
--- NOTE | 2016-04-08 15:27 | PHATRASOAP ---
Date/Time: 04/08/16 1527 Pharmacist daily assessment of kidney transplant patient: S: Post op renal transplant day #2 O: Ht: 5 ft 10 in Wt: 88 kg Allergies: Compazine SCR = 8.22 A: Vitals: BP = 150s/80s, Electrolytes: Na= 135, K=5.5, Ca=7.7, Phosphorus= 6.1, Mg=2.1 Albumin = 3.5 WBC=8.9 on 04/08, 15 on 04/07 ZD=217 UOP=34 mL BM = None Hospital Medications: Thymoglobulin 125 mg IV on 04/06, 135 mg on 04/07 (total received = 260 mg = 2.9 mg/kg) Cellcept 1000 mg po bid Valganciclovir 900 mg po daily Insulin low scale Accuchecks q6h Dulcolax supp 10 mg po/pr Calcium 500 mg po bid Lopressor 25 mg po bid Home meds; Aspirin 81mg daily Clonidine 0.1mg hs [id number] PO BID Pravastatin 10mg PO hs -Patient had received 2 doses of Thymoglobulin with total dose to date 2.9 mg/kg reflected with appropriate drop in WBC. - Patient had 2500ml removed by dialysis on 04/07, electrolytes remain impaired awaiting graft function - Pain is well controlled with morphine - CellCept / Valganciclovir well tolerated - No bowel movement yet, might P: -Might consider a third thymoglobulin dose to complete induction phase - Might consider discontinuing Morphine GREASE BUFFER in am if pain remain controlled and start Percocet 5/325mg PO Q6h prn pain. -Continue CellCept / Valganciclovir Pharmacist: Curtis CowanD Signature on file Consulting Physician:
[2016-04-08] MEDS: MORPHINE SULFATE 30 MG/30 ML PCA IV SCH (17:10)
[2016-04-08] MEDS: DEXT 5%-NACL 0.45% 1000 ML INJ 1,000 ML IV SCH (21:00)
[2016-04-09] VITALS (25 sets, daily range): BP systolic 133–154; BP diastolic 69–86; PULSE 64–116; RESP 12–20; TEMP 97.5–98.6; O2SAT 96–99
[2016-04-09 04:44] LABS: AUTOMATED NEUTROPHIL # 4.2 TH/MM3 (1.8-7.7); BASOPHIL % 0.1 % (0.0-2.0); HEMATOCRIT 21.8 % (39.0-51.0); HEMO FLAGS DIFF FINAL; LYMPH % 2.3 % (9.0-44.0); LYMPHOCYTE # 0.1 TH/MM3 (1.0-4.8); MEAN CORPUSCULAR HGB CONC 32.9 % (32.0-36.0); MONO % 3.5 % (0.0-8.0); NEUT % 94.1 % (16.0-70.0); PLATELET COUNT 116 TH/MM3 (150-450); RED BLOOD COUNT 2.48 MIL/MM3 (4.50-5.90); RED CELL DISTRIBUTION WIDTH 14.9 % (11.6-17.2); WHITE BLOOD COUNT 4.5 TH/MM3 (4.0-11.0)
[2016-04-09] MEDS: PCA - TOTAL MG MORPHINE DELIVERED PER SHIFT SCH (05:01)
[2016-04-09 05:13] LABS: BICARBONATE 22.7 MEQ/L (21.0-32.0); MAGNESIUM 2.5 MG/DL (1.5-2.5); POTASSIUM 5.9 MEQ/L (3.5-5.1)
[2016-04-09] MEDS: MYCOPHENOLATE MOFETIL 500 MG TAB PO SCH ×2 (06:31→18:12)
[2016-04-09] MEDS: INSULIN NovoLIN REGULAR SUPPLEMENTAL SCALE SQ SCH ×4 (07:00→20:55)
[2016-04-09] MEDS: DEXT 5%-NACL 0.45% 1000 ML INJ 1,000 ML IV SCH (08:05)
[2016-04-09] MEDS ORDERED: BISACODYL EC 5 MG TABEC PO PRN (08:15)
[2016-04-09] MEDS ORDERED: BISACODYL 10 MG SUPP RECTAL PRN (08:15)
[2016-04-09] MEDS: NYSTATIN SUSP 500,000 U/5 ML CUP SWISH-SWAL SCH ×3 (09:00→20:54)
--- NOTE | 2016-04-09 09:26 | MB ---
cc: SEAN CAIN MD DATE OF CONSULTATION 04/09/2016 REASON FOR CONSULTATION Progress note today on 04/09/2016. Mr. Newman is resting comfortably in bed and is taking a nap this morning. Earlier he was awake, alert and oriented and interactive with the staff for the morning care. He reports there were no incidents overnight. He continued to sleep better. He had no complaints of pain using his APPLIANCE INSTALLER pump minimally. He has been able to get up out of bed and ambulate and tolerates his clear liquids, although there is no report of passage of flatus yet. Overnight, he was afebrile. His blood pressure this morning systolic's are in high 140's, low 150's and his heart rates are in the 70s and 80s. He remains on room air sating 94-95%. His Franklyn drain put out 20 cc over 24 hours. His urine output was 28 cc over the last shift and his wound incision is clean, dry, and intact with any leakage, drainage or disruption. His Franklyn drain site is without any leakage draining serosanguineous fluid. His extremities remain minimally edematous. LABORATORY DATA His labs from this morning show a sodium of 136. His potassium is five 5.9 and his creatinine is 10.08. His phosphorus level is also elevated 7.7. His magnesium level is 2.5. His white cell count is down to 4.5. His hematocrit is 21.8 and his platelet count is 116. His lymphocyte number is down to 0.1. ASSESSMENT/PLAN Appears to continue in his recovery. He is comfortable and his activity is improving. However, the kidney remains in ATN with delayed graft function. We will continue his immunosuppression and he is still not up to his limit with his Thymoglobulin, however, there is consideration of starting low dose Prograf. He will be receiving dialysis this morning for his hyperkalemia as well as his elevated creatinine. He is tolerating his p.o. clears well, however, we will await the passage of flatus to advance his diet. We will similarly discontinue his APPLIANCE INSTALLER pump and place him on oral analgesics. Otherwise, we will continued to monitor for his the increase in his volume regulation from the new allograft. MD LARISSA Ochoa/ELDON /8:42 AM /9:18 AM
[2016-04-09] MEDS: METOPROLOL TARTRATE 5 MG/5 ML VIAL IV PRN ×2 (10:30→23:21)
[2016-04-09] MEDS: METOPROLOL TARTRATE 25 MG TAB PO SCH ×2 (10:30→20:54)
[2016-04-09] MEDS ORDERED: diphenhydrAMINE HCL 50 MG CAP PO ONE (11:15)
[2016-04-09] MEDS ORDERED: methylPREDNISolone SOD SUCC 125 MG/2 ML VIAL IV PUSH ONE (11:15)
[2016-04-09] MEDS ORDERED: ACETAMINOPHEN 325 MG TAB PO ONE (11:15)
[2016-04-09] MEDS ORDERED: THYMOGLOBULIN ANAPYLAXIS KIT MISC XX PRN (11:15)
--- NOTE | 2016-04-09 11:21 | HHI.NPPN ---
Subjective History of Present Illness 45 year old male Kidney transplant # 2 Additional Remarks had ATN Atrial Fibrillation Review of Systems Gastrointestinal Gastrointestinal: Abdominal Pain Objective Data Data 04/08/16 04/09/16 19:00 07:00 Intake Total 2218 ml 988 ml Output Total 45 ml 38 ml Balance 2173 ml 950 ml Intake Oral 1200 ml 480 ml IV Total 1018 ml 508 ml Output Urine Total 35 ml 28 ml Drainage Total 10 ml 10 ml # Bowel Movements 0 0 Vital Signs Date Time Temp Pulse Resp B/P Pulse Ox O2 Delivery O2 Flow Rate FiO2 04/09/16 08:18 97.7 81 14 143/69 98 04/09/16 08:08 81 04/09/16 07:23 99 21 04/09/16 07:00 69 04/09/16 06:00 74 04/09/16 05:01 20 04/09/16 05:00 74 04/09/16 04:00 98.0 71 20 153/72 98 04/09/16 04:00 74 04/09/16 03:00 94 04/09/16 02:00 75 04/09/16 01:04 78 04/09/16 00:00 98.6 81 20 141/69 98 04/09/16 00:00 78 04/08/16 23:00 91 04/08/16 22:00 87 04/08/16 22:00 20 04/08/16 21:30 21 04/08/16 21:00 75 04/08/16 20:00 98.6 68 20 139/75 98 04/08/16 20:00 72 04/08/16 19:00 68 04/08/16 18:00 91 04/08/16 17:10 20 04/08/16 17:00 88 04/08/16 16:17 94 04/08/16 15:23 98.6 99 12 140/76 94 04/08/16 15:00 91 04/08/16 14:00 94 04/08/16 14:00 20 04/08/16 13:45 87 126/74 04/08/16 13:30 95 130/76 04/08/16 13:15 95 134/76 04/08/16 13:00 92 04/08/16 13:00 96 128/72 04/08/16 12:00 90 04/08/16 11:38 88 04/08/16 11:36 98.4 88 20 133/73 94 Arterial Line -: 04/09/16 0353 04/09/16 0353 Physical Exam General Appearance: Well Developed Eyes Eye Exam: Pupils Equal Neck Neck Exam: Neck Supple Pulmonary Resp Exam: Decreased Bases Cardiology CV Exam: Arrhythmia, Tachycardia Gastrointestinal/Abdomen GI Exam: Soft (surgical incision left lower abdomen) Extremeties Extremities Exam: Trace Edema Neurologic Neuro Exam: Alert Assessment/Plan Problem List: (1) Kidney transplant status, cadaveric Plan: UOP Low Cr higher again K 5.9 UOP Low H/H lower 1 unit PRBC continue with Thymoglobulin 4th dose at 1 mg Kg Prednisone 2o mg start 04/10 Prograf start this evening 3 mg q 12 follow renal U/S Atrial fibrillation during dialysis given Lopressor, order Digoxin again follow (2) Hypertension Plan: Blood pressure is stable (3) Atrial fibrillation Plan: back in A fib as above (4) Hyperkalemia Plan: follow Sylvester Romano MD Apr 09, 2016 11:21
[2016-04-09] MEDS: EPOETIN ALFA 10,000 UNITS/ML VIAL IV PRN (12:46)
[2016-04-09] MEDS ORDERED: DIGOXIN 0.5 MG/2 ML VIAL IV PUSH ONE (13:00)
[2016-04-09] MEDS ORDERED: ANTITHYMOCYTE GLOB IV-CENTRAL ONE (13:15)
[2016-04-09] MEDS ORDERED: SODIUM CHLORID 0.9% IV-CENTRAL ONE (13:15)
[2016-04-09] MEDS: PANTOPRAZOLE SODIUM 40 MG VIAL IV PUSH SCH (13:45)
[2016-04-09] MEDS: SULFAMETHOXAZOLE-TRIMETHOPRIM DS 800-160 MG TAB PO SCH (13:46)
[2016-04-09] MEDS: DOCUSATE SODIUM 100 MG CAP PO SCH ×2 (13:46→20:54)
[2016-04-09] MEDS: CALCIUM CARBONATE 500 MG CHEWABLE TAB CHEW SCH ×2 (13:59→18:12)
--- NOTE | 2016-04-09 15:11 | PHATRANEDU ---
Date/Time: 04/09/16 1506 Pharmacist Patient Education: Education on medication compliance: Counseled patient on the crucial importance of compliance with all his medication especially his anti-rejection medication. Educated patient on the different frequency of his different medication and how to take his medication in regards to meals to minimize side effects and maximize benefits. Education on medication side effects: Counseled on various side effects of his anti rejection and anti infective medications: Educated patient on the tendency of anti rejection medications to increase his blood pressure and blood sugars, educated patient to continue to monitor blood pressure and notify physician if he noticed increase in blood pressure above his normal value. Educated patients on side effects associated with Tacrolimus and Mycophenolate Mofetil. Moreover educated patient of side effects of Bactrim, Valganciclovir and Nystatin. Educated patient on the action plan needed when any side effects occurs. Education on signs and symptoms of rejection: Educated patient on different signs and symptoms of rejection that include: -Decreased urine output. -A temperature above 100* F (37.8* C). -Tenderness in the area of your new kidney. -Bloody or foul smelling urine. -Flu-like feelings. -Weight gain (more than 5 pounds in two days). Educated patient on signs and symptoms of infection that include: -A fever above 100* F (37.8* C). -Drainage or bad odor of drainage from your surgical scar. -Burning when you pass your urine. -A cold or cough that will not go away. -Flu-like feelings. Action plan needed in situation of rejection, infection or medications side effects: Educated patient on need to contact his physician if he noticed any of the above symptoms. Educated patient to follow with his physician on time for labs and follow ups. Pharmacist: Curtis Barry PharmD Signature on file
[2016-04-09] MEDS: TACROLIMUS 1 MG CAP PO SCH (18:12)
--- NOTE | 2016-04-09 20:35 | RADRPT ---
EXAM DATE/TIME: 04/09/2016 16:20 [facility] COMPARISON: US KIDNEY / TRANSPLANT, April 08, 2010, 12:42. INDICATIONS : Delayed graft function. MEDICAL HISTORY : Myocardial infarction. Hypercholesterolemia. Hypertension. Coronary artery disease. Chest pain. Afib. Renal disease and failure. LUPUS. SURGICAL HISTORY : CABG. Nephrectomy. Right kidney transplant. Left kidney transplant. Gout removed from left elbow. Blood transfusions. ENCOUNTER: Initial ACUITY: 1 day PAIN SCORE: 8/10 LOCATION: Left lower quadrant MEASUREMENTS: TRANSPLANT KIDNEY: 11.4 x 5.8 x 5.7 cm LOCATION: Left lower quadrant. ARCUATE ARTERIES RESISTIVE INDEX: Upper - 0.8 Mid - 0.7 Lower - 0.7 MAIN RENAL ARTERY VELOCITY: (cm/sec): 51 MAIN RENAL VEIN: Patent EXTERNAL ILIAC ARTERY VELOCITY (cm/sec): 117 * NORMAL DOPPLER FINDINGS Arcuate arteries - RI = 0.6 - 0.8 Renal artery = under 200 cm/sec Renal vein = May be monophasic with continuous flow or demonstrate some pulsatility with cardiac cycl e FINDINGS: TRANSPLANT KIDNEY: Normal cortical thickness and echotexture. No hydronephrosis, stone, or mass. No peritransplant flu id collection. URINARY BLADDER: There is a Weeks catheter in place. CONCLUSION: Normal examination. Spencer Carlson MD on April 09, 2016 at 20:29 Board Certified Radiologist. This report was verified electronically.
[2016-04-10] VITALS (29 sets, daily range): BP systolic 126–187; BP diastolic 66–91; PULSE 70–127; RESP 18; TEMP 97.7–97.9; O2SAT 97–100
[2016-04-10] MEDS: DEXT 5%-NACL 0.45% 1000 ML INJ 1,000 ML IV SCH (02:02)
[2016-04-10] MEDS ORDERED: DILTIAZEM-CD 240 MG CAP ER PO ONE (03:30)
[2016-04-10] MEDS: INSULIN NovoLIN REGULAR SUPPLEMENTAL SCALE SQ SCH ×4 (05:41→20:59)
[2016-04-10] MEDS: TACROLIMUS 1 MG CAP PO SCH ×2 (06:05→18:34)
[2016-04-10] MEDS: MYCOPHENOLATE MOFETIL 500 MG TAB PO SCH ×2 (06:05→18:34)
[2016-04-10 06:32] LABS: BICARBONATE 28.3 MEQ/L (21.0-32.0); MAGNESIUM 2.3 MG/DL (1.5-2.5); POTASSIUM 4.3 MEQ/L (3.5-5.1)
[2016-04-10 06:44] LABS: AUTOMATED NEUTROPHIL # 3.6 TH/MM3 (1.8-7.7); BASOPHIL % 0.1 % (0.0-2.0); EOSINOPHIL % 0.1 % (0.0-4.0); HEMO FLAGS DIFF FINAL; LYMPH % 4.2 % (9.0-44.0); LYMPHOCYTE # 0.2 TH/MM3 (1.0-4.8); MEAN CORPUSCULAR HEMOGLOBIN 28.9 PG (27.0-34.0); MEAN CORPUSCULAR HGB CONC 33.2 % (32.0-36.0); MONO % 6.4 % (0.0-8.0); NEUT % 89.2 % (16.0-70.0); PLATELET COUNT 120 TH/MM3 (150-450); RED BLOOD COUNT 3.22 MIL/MM3 (4.50-5.90); RED CELL DISTRIBUTION WIDTH 14.7 % (11.6-17.2)
[2016-04-10] MEDS: NYSTATIN SUSP 500,000 U/5 ML CUP SWISH-SWAL SCH ×3 (10:00→21:00)
[2016-04-10] MEDS: predniSONE 20 MG TAB PO SCH (10:01)
[2016-04-10] MEDS: METOPROLOL TARTRATE 25 MG TAB PO SCH ×2 (10:01→21:00)
[2016-04-10] MEDS: CALCIUM CARBONATE 500 MG CHEWABLE TAB CHEW SCH ×2 (10:01→17:22)
[2016-04-10] MEDS: PANTOPRAZOLE SODIUM 40 MG VIAL IV PUSH SCH (10:01)
[2016-04-10] MEDS: DOCUSATE SODIUM 100 MG CAP PO SCH ×2 (10:01→21:00)
[2016-04-10] MEDS: SODIUM CHLORIDE 0.9% FLUSH 5 ML FLUSH IVF PRN (10:01)
--- NOTE | 2016-04-10 11:24 | MB ---
cc: SEAN CAIN MD DATE OF CONSULTATION: 04/10/2016 REASON FOR CONSULTATION: This morning Mr. Newman is awake, alert for a fully oriented and conversing with his mother in his room. She had an uneventful night overnight. He passed flatus yesterday and was advanced on his diet to a full liquid diet, which he has tolerated well without any problems. He has been more active and states that he feels a difference. He also tolerated dialysis yesterday having liter removed from intravascular volume as well as correction of his electrolytes. Overnight his T-max was 97.8. His heart rate is currently in the 90s. He was somewhat higher overnight and was restarted on his p.o. Cardizem and that he usually takes at home. He is on room air breathing a rate of about 18 sating about 99%. His Systolic's in the 140-160. He and his I and O's showing positive about 1.7 liters, he took in about 1500. His IV was about 1300, his urine output was about 63 mls per 24 hours, and 61 mls overnight as of this morning. His Franklyn drain put out 10 cc overnight for a total of 20 cc for 24 hours. On exam his incision was clean, dry, intact without any seepage or ecchymoses or evidence of hematoma. His Franklyn drain site is dry without any moisture, he drained a small amount of serosanguineous fluid. His urine in the bag has continued show service either from old blood over from soughed cells. His abdomen is soft, nondistended. Extremities remain minimally medially with edema. LABORATORY FINDINGS: His labs this morning shows white count down to four. His hematocrit is 28. His platelet count is 120 and his lymphocyte count is at 0.2. His sodium is 138, potassium is 4.3. His creatinine is 7.36 with a BUN of 61. His phosphorus is down to 6.8. He has a Prograf level pending for this morning. ASSESSMENT/PLAN Mr. Newman continues to improve his renal function is gradually improving with the assistance of intermittent and p.r.n. hemodialysis. He has been started on tacrolimus and we will check his level this morning. We await his level this morning. I have discussed with Mr. Newman and his mother that there is a high likelihood that he will be discharged with the continuing need for bridge dialysis. I informed him that [facility] Today we emphasize that it would be useful for him to ambulate four times a day. We are awaiting a bowel movement. Overall his graft doubled in the previous days volume, although he will most likely require dialysis again tomorrow. Thank you MD LARISSA Ochoa/ladonna /8:56 AM /11:16 AM
--- NOTE | 2016-04-10 15:00 | HHI.NPPN ---
Subjective History of Present Illness 45 year old male Kidney transplant # 2 Additional Remarks had ATN Atrial Fibrillation Review of Systems Gastrointestinal Gastrointestinal: Abdominal Pain Objective Data Data 04/09/16 04/10/16 19:00 07:00 Intake Total 1891 ml 910 ml Output Total 1041 ml 40 ml Balance 850 ml 870 ml Intake Oral 1080 ml 400 ml IV Total 811 ml 510 ml Output Urine Total 31 ml 30 ml Drainage Total 10 ml 10 ml Hemodialysis 1000 ml # Bowel Movements 0 Vital Signs Date Time Temp Pulse Resp B/P Pulse Ox O2 Delivery O2 Flow Rate FiO2 04/10/16 13:00 107 04/10/16 12:00 85 04/10/16 11:00 97.9 78 18 126/66 97 04/10/16 11:00 78 04/10/16 10:00 75 04/10/16 09:00 86 04/10/16 08:00 106 04/10/16 07:41 99 21 04/10/16 07:00 97.8 76 18 161/91 99 04/10/16 07:00 76 04/10/16 06:00 95 04/10/16 05:00 89 04/10/16 04:00 116 04/10/16 03:39 114 18 166/90 100 Automatic Cuff 04/10/16 03:00 126 04/10/16 02:00 117 04/10/16 01:00 113 04/10/16 00:00 127 04/09/16 23:30 97.5 114 18 154/86 98 04/09/16 23:00 116 04/09/16 22:00 102 04/09/16 21:00 106 04/09/16 20:00 101 04/09/16 19:00 101 04/09/16 19:00 97.9 99 18 148/82 96 04/09/16 18:10 99 04/09/16 17:05 97 04/09/16 16:26 97.9 98 12 148/82 99 04/09/16 16:11 96 04/09/16 15:00 91 -: 04/10/16 0519 04/10/16 0519 Physical Exam General Appearance: Well Developed Eyes Eye Exam: Pupils Equal Neck Neck Exam: Neck Supple Pulmonary Resp Exam: Decreased Bases Cardiology CV Exam: Arrhythmia, Tachycardia Gastrointestinal/Abdomen GI Exam: Soft (surgical incision left lower abdomen) Extremeties Extremities Exam: Trace Edema Neurologic Neuro Exam: Alert Assessment/Plan Problem List: (1) Kidney transplant status, cadaveric Plan: UOP slowly improving Cr continued to decline H&H stable Prednisone 20 mg started 04/10 Prograf start this evening 3 mg q 12 Transplant renal U/S normal findings Atrial fibrillation during dialysis given Lopressor, started diltiazem Tacrolimus level I.8 however he is on diltiazem will follow the level (2) Hypertension Plan: Blood pressure is stable (3) Atrial fibrillation Plan: back in A fib as above (4) Hyperkalemia Plan: Resolved Sylvester Romano MD Apr 10, 2016 15:00
[2016-04-10] MEDS ORDERED: CALCIUM CARBONATE 500 MG CHEWABLE TAB CHEW PRN (22:00)
[2016-04-11] VITALS (28 sets, daily range): BP systolic 130–158; BP diastolic 77–83; PULSE 66–89; RESP 18; TEMP 97.6–98.7; O2SAT 98–100
[2016-04-11] MEDS: cloNIDine HCL 0.1 MG TAB PO PRN (00:06)
[2016-04-11] MEDS: DEXT 5%-NACL 0.45% 1000 ML INJ 1,000 ML IV SCH (02:30)
[2016-04-11] MEDS: INSULIN NovoLIN REGULAR SUPPLEMENTAL SCALE SQ SCH ×2 (05:46→10:44)
[2016-04-11 05:57] LABS: BASOPHIL % 0.3 % (0.0-2.0); EOSINOPHIL % 0.5 % (0.0-4.0); HEMATOCRIT 25.2 % (39.0-51.0); HEMO FLAGS DIFF FINAL; LYMPH % 3.2 % (9.0-44.0); LYMPHOCYTE # 0.1 TH/MM3 (1.0-4.8); MEAN CELL VOLUME 87.4 FL (80.0-100.0); MEAN CORPUSCULAR HEMOGLOBIN 29.2 PG (27.0-34.0); MEAN CORPUSCULAR HGB CONC 33.4 % (32.0-36.0); MONO % 5.5 % (0.0-8.0); NEUT % 90.5 % (16.0-70.0); PLATELET COUNT 104 TH/MM3 (150-450); RED BLOOD COUNT 2.88 MIL/MM3 (4.50-5.90); RED CELL DISTRIBUTION WIDTH 14.8 % (11.6-17.2); WHITE BLOOD COUNT 4.5 TH/MM3 (4.0-11.0)
[2016-04-11] MEDS: TACROLIMUS 1 MG CAP PO SCH ×2 (06:00→17:17)
[2016-04-11] MEDS: MYCOPHENOLATE MOFETIL 500 MG TAB PO SCH ×2 (06:00→17:17)
[2016-04-11 06:49] LABS: BICARBONATE 26.1 MEQ/L (21.0-32.0); MAGNESIUM 2.5 MG/DL (1.5-2.5); POTASSIUM 4.4 MEQ/L (3.5-5.1)
[2016-04-11] MEDS: predniSONE 20 MG TAB PO SCH (09:35)
[2016-04-11] MEDS: PANTOPRAZOLE SODIUM 40 MG VIAL IV PUSH SCH (09:35)
[2016-04-11] MEDS: NYSTATIN SUSP 500,000 U/5 ML CUP SWISH-SWAL SCH ×3 (09:35→21:25)
[2016-04-11] MEDS: DOCUSATE SODIUM 100 MG CAP PO SCH ×2 (09:35→21:25)
[2016-04-11] MEDS: CALCIUM CARBONATE 500 MG CHEWABLE TAB CHEW SCH ×2 (09:35→17:17)
[2016-04-11] MEDS: METOPROLOL TARTRATE 25 MG TAB PO SCH ×2 (09:35→21:25)
[2016-04-11] MEDS: SODIUM CHLORIDE 0.9% FLUSH 5 ML FLUSH IVF PRN (09:35)
[2016-04-11] MEDS: DILTIAZEM-CD 240 MG CAP ER PO SCH (09:35)
[2016-04-11] MEDS ORDERED: BISACODYL 10 MG SUPP RECTAL ONE ×2 (10:00→17:45)
--- NOTE | 2016-04-11 13:27 | HHI.NPPN ---
Subjective History of Present Illness 45 year old male Kidney transplant # 2 Interval History had some nausea Additional Remarks had ATN Atrial Fibrillation Review of Systems Gastrointestinal Gastrointestinal: Abdominal Pain Objective Data Data 04/10/16 04/11/16 19:00 07:00 Intake Total 1020 ml 989 ml Output Total 50 ml 109 ml Balance 970 ml 880 ml Intake Oral 500 ml 400 ml IV Total 520 ml 589 ml Output Urine Total 40 ml 109 ml Drainage Total 10 ml 0 ml # Bowel Movements 0 0 Vital Signs Date Time Temp Pulse Resp B/P Pulse Ox O2 Delivery O2 Flow Rate FiO2 04/11/16 13:03 89 04/11/16 12:19 86 04/11/16 11:30 84 04/11/16 11:30 97.7 86 18 145/83 98 04/11/16 10:25 83 04/11/16 09:00 85 04/11/16 08:14 99 21 04/11/16 08:00 83 04/11/16 07:00 84 04/11/16 07:00 97.7 84 18 148/81 98 04/11/16 06:00 82 04/11/16 05:00 75 04/11/16 04:00 66 04/11/16 03:44 97.6 76 18 158/82 100 04/11/16 03:00 71 04/11/16 02:00 74 04/11/16 01:00 76 04/11/16 00:00 67 04/10/16 23:40 88 18 186/87 100 04/10/16 23:38 80 18 187/85 100 04/10/16 23:00 75 04/10/16 22:00 95 04/10/16 21:00 78 04/10/16 20:00 70 04/10/16 19:30 97.7 71 18 144/76 99 04/10/16 19:00 87 04/10/16 18:00 82 04/10/16 17:00 100 04/10/16 16:00 106 04/10/16 15:00 102 04/10/16 15:00 97.9 102 18 133/66 99 04/10/16 14:00 108 -: 04/11/16 0540 04/11/16 0540 Physical Exam General Appearance: Well Developed Eyes Eye Exam: Pupils Equal Neck Neck Exam: Neck Supple Pulmonary Resp Exam: Decreased Bases Cardiology CV Exam: Arrhythmia, Tachycardia Gastrointestinal/Abdomen GI Exam: Soft (surgical incision left lower abdomen) Extremeties Extremities Exam: Trace Edema Neurologic Neuro Exam: Alert Assessment/Plan Problem List: (1) Kidney transplant status, cadaveric Plan: UOP slowly improving Cr higher H&H stable Prednisone 20 mg started 04/10 Prograf start this evening 3 mg q 12 Transplant renal U/S normal findings Atrial fibrillation Lopressor, started diltiazem HR 89 Tacrolimus level 7 (2) Hypertension Plan: Blood pressure is stable (3) Atrial fibrillation Plan: back in A fib as above (4) Hyperkalemia Plan: Resolved Sylvester Romano MD Apr 11, 2016 13:27
[2016-04-12] VITALS (24 sets, daily range): BP systolic 142–160; BP diastolic 71–85; PULSE 63–87; RESP 16–18; TEMP 97.5–98.4; O2SAT 97–100
[2016-04-12 06:18] LABS: AUTOMATED NEUTROPHIL # 5.2 TH/MM3 (1.8-7.7); BASOPHIL % 0.1 % (0.0-2.0); EOSINOPHIL % 0.3 % (0.0-4.0); HEMATOCRIT 24.9 % (39.0-51.0); HEMO FLAGS DIFF FINAL; LYMPHOCYTE # 0.1 TH/MM3 (1.0-4.8); MEAN CELL VOLUME 87.2 FL (80.0-100.0); MEAN CORPUSCULAR HEMOGLOBIN 29.4 PG (27.0-34.0); MEAN CORPUSCULAR HGB CONC 33.7 % (32.0-36.0); MONO % 4.2 % (0.0-8.0); NEUT % 93.4 % (16.0-70.0); PLATELET COUNT 110 TH/MM3 (150-450); RED BLOOD COUNT 2.85 MIL/MM3 (4.50-5.90); RED CELL DISTRIBUTION WIDTH 14.7 % (11.6-17.2); WHITE BLOOD COUNT 5.6 TH/MM3 (4.0-11.0)
[2016-04-12 06:31] LABS: BICARBONATE 24.2 MEQ/L (21.0-32.0); MAGNESIUM 2.7 MG/DL (1.5-2.5); POTASSIUM 4.6 MEQ/L (3.5-5.1)
[2016-04-12] MEDS: TACROLIMUS 1 MG CAP PO SCH ×2 (06:42→18:23)
[2016-04-12] MEDS: MYCOPHENOLATE MOFETIL 500 MG TAB PO SCH ×2 (06:45→18:23)
[2016-04-12] MEDS: NYSTATIN SUSP 500,000 U/5 ML CUP SWISH-SWAL SCH ×3 (09:00→20:07)
[2016-04-12] MEDS: PANTOPRAZOLE SODIUM 40 MG VIAL IV PUSH SCH (09:22)
[2016-04-12] MEDS: DILTIAZEM-CD 240 MG CAP ER PO SCH (09:22)
[2016-04-12] MEDS: DOCUSATE SODIUM 100 MG CAP PO SCH ×2 (09:22→20:07)
[2016-04-12] MEDS: METOPROLOL TARTRATE 25 MG TAB PO SCH ×2 (09:23→20:07)
[2016-04-12] MEDS: predniSONE 20 MG TAB PO SCH (09:23)
[2016-04-12] MEDS: CALCIUM CARBONATE 500 MG CHEWABLE TAB CHEW SCH ×2 (09:23→16:35)
[2016-04-12] MEDS: SULFAMETHOXAZOLE-TRIMETHOPRIM DS 800-160 MG TAB PO SCH (10:00)
--- NOTE | 2016-04-12 13:43 | HHI.NPPN ---
Subjective History of Present Illness 45 year old male Kidney transplant # 2 Additional Remarks had ATN back in NSR (Sylvester Romano MD) Review of Systems Gastrointestinal Gastrointestinal: Abdominal Pain (Sylvester Romano MD) Objective Data Data 04/11/16 04/12/16 19:00 07:00 Intake Total 519 ml 637 ml Output Total 119 ml 187 ml Balance 400 ml 450 ml Intake Oral 240 ml 450 ml IV Total 279 ml 187 ml Output Urine Total 119 ml 187 ml # Bowel Movements 0 2 Vital Signs Date Time Temp Pulse Resp B/P Pulse Ox O2 Delivery O2 Flow Rate FiO2 04/12/16 12:00 69 04/12/16 11:41 97.5 66 16 100 142/71 04/12/16 11:00 66 04/12/16 10:00 68 04/12/16 09:00 71 04/12/16 09:00 97.6 67 18 99 159/85 04/12/16 08:00 69 04/12/16 07:00 63 04/12/16 06:00 65 04/12/16 05:00 67 04/12/16 04:48 64 18 154/77 100 04/12/16 04:00 66 04/12/16 03:00 67 04/12/16 02:00 74 04/12/16 01:00 69 04/12/16 00:00 67 04/11/16 23:19 68 04/11/16 23:15 97.7 69 18 154/77 100 04/11/16 23:00 77 04/11/16 22:00 82 04/11/16 21:00 78 04/11/16 20:00 76 04/11/16 19:30 98.7 80 18 144/80 100 04/11/16 19:30 69 04/11/16 18:36 73 04/11/16 17:21 67 04/11/16 16:04 83 04/11/16 15:38 85 04/11/16 15:38 97.7 85 18 130/83 99 04/11/16 14:25 89 (Sylvester Romano MD) -: 04/12/16 0535 04/12/16 0535 Physical Exam General Appearance: Well Developed (Sylvester Romano MD) Eyes Eye Exam: Pupils Equal (Sylvester Romano MD) Neck Neck Exam: Neck Supple (Sylvester Romano MD) Pulmonary Resp Exam: Decreased Bases (Sylvester Romano MD) Cardiology CV Exam: Arrhythmia, Tachycardia (Sylvester Romano MD) Gastrointestinal/Abdomen GI Exam: Soft (surgical incision left lower abdomen) (Sylvester Romano MD) Extremeties Extremities Exam: Trace Edema (Sylvester Romano MD) Neurologic Neuro Exam: Alert (Sylvester Romano MD) Assessment/Plan Problem List: (1) Kidney transplant status, cadaveric Plan: UOP slowly improving Cr higher H&H stable Prednisone 20 mg started 04/10 Prograf 3 mg q 12, Cellcept 1000 mg bid he is seen during dialysis 600 cc UF, as UOP improved stable discharge planning (2) Hypertension Plan: Blood pressure is stable (3) Atrial fibrillation Plan: back in NSR as above (4) Hyperkalemia Plan: Resolved (Sylvester Romano MD) Problem List: (1) Kidney transplant status, cadaveric Plan: UOP slowly improving Cr higher H&H stable Prednisone 20 mg started 04/10 Prograf start this evening 3 mg q 12 he is seen during dialysis 600 cc UF, as UOP improved stable discharge planning (2) Hypertension Plan: Blood pressure is stable (3) Atrial fibrillation Plan: back in A fib as above (4) Hyperkalemia Plan: Resolved (Myles Nicole MD) Sylvester Romano MD Apr 12, 2016 13:43 Myles Nicole MD Apr 13, 2016 11:01
[2016-04-12] MEDS: GELATIN 12 MM/7 MM FOAM TOP PRN (15:33)
[2016-04-12] MEDS: EPOETIN ALFA 10,000 UNITS/ML VIAL IV PRN (15:33)
[2016-04-12] MEDS ORDERED: NYST1000 SWISH-SWAL (22:39)
[2016-04-12] MEDS ORDERED: ACET325T PO (22:39)
[2016-04-12] MEDS ORDERED: PRED-503 PO (22:39)
[2016-04-12] MEDS ORDERED: BACT800T5 PO (22:52)
[2016-04-12] MEDS ORDERED: VALG450 PO (22:52)
[2016-04-12] MEDS ORDERED: DOCU100C PO (22:52)
[2016-04-12] MEDS ORDERED: OMEP20TA PO (22:52)
[2016-04-12] MEDS ORDERED: METO25TA3 PO (22:52)
[2016-04-12] MEDS ORDERED: CALC500C6 CHEW (22:52)
[2016-04-12] MEDS ORDERED: DILT240C36 PO (22:52)
[2016-04-12] MEDS ORDERED: TACR1CAP PO (22:52)
[2016-04-12] MEDS ORDERED: MYCO500 PO (22:52)
[2016-04-12] MEDS ORDERED: PRAV10TA PO (22:52)
[2016-04-13] VITALS (26 sets, daily range): BP systolic 136–164; BP diastolic 72–83; PULSE 64–85; RESP 16–18; TEMP 97.7–98.1; O2SAT 97–100
[2016-04-13 03:37] LABS: AUTOMATED NEUTROPHIL # 5.1 TH/MM3 (1.8-7.7); BASOPHIL % 0.2 % (0.0-2.0); EOSINOPHIL % 0.1 % (0.0-4.0); HEMATOCRIT 24.9 % (39.0-51.0); HEMO FLAGS DIFF FINAL; LYMPH % 2.4 % (9.0-44.0); LYMPHOCYTE # 0.1 TH/MM3 (1.0-4.8); MEAN CELL VOLUME 87.4 FL (80.0-100.0); MEAN CORPUSCULAR HEMOGLOBIN 29.2 PG (27.0-34.0); MEAN CORPUSCULAR HGB CONC 33.5 % (32.0-36.0); MONO % 3.1 % (0.0-8.0); NEUT % 94.2 % (16.0-70.0); PLATELET COUNT 121 TH/MM3 (150-450); RED BLOOD COUNT 2.86 MIL/MM3 (4.50-5.90); RED CELL DISTRIBUTION WIDTH 14.6 % (11.6-17.2); WHITE BLOOD COUNT 5.4 TH/MM3 (4.0-11.0)
[2016-04-13 03:58] LABS: BICARBONATE 31.6 MEQ/L (21.0-32.0); MAGNESIUM 2.3 MG/DL (1.5-2.5); POTASSIUM 4.7 MEQ/L (3.5-5.1)
[2016-04-13] MEDS: TACROLIMUS 1 MG CAP PO SCH ×3 (05:34→19:00)
[2016-04-13] MEDS: MYCOPHENOLATE MOFETIL 500 MG TAB PO SCH (05:34)
[2016-04-13] MEDS ORDERED: BISACODYL 10 MG SUPP RECTAL ONE (08:15)
--- NOTE | 2016-04-13 09:48 | RADRPT ---
EXAM DATE/TIME: 04/13/2016 09:06 [facility] COMPARISON: No previous studies available for comparison. INDICATIONS : Abdominal distention. Constipation. MEDICAL HISTORY : Myocardial infarction. Hypercholesterolemia. Hypertension. Coronary artery disease. Chest pain. A fib. Renal disease and failure. LUPUS. SURGICAL HISTORY : CABG. Nephrectomy. Right kidney transplant. Left kidney transplant. Gout removed from left elbow. B lood transfusions. ENCOUNTER: Initial ACUITY: 2 days PAIN SCORE: 3/10 LOCATION: Left abdomen FINDINGS: Supine view of the abdomen was performed. The abdominal bowel gas pattern is normal. There is a aiden cified mass in the right lower quadrant that has the shape of a kidney. Clips are seen in this region and the patient has a history of the transplanted kidney. Clips are also seen in the left renal willi a. Skin vito are seen over the lower left pelvis and lower left No abnormal masses, calcifications , or organomegaly is seen. The osseous structures are unremarkable. CONCLUSION: 1. Calcified mass in the right lower quadrant and iliac fossa region likely related to a previously t ransplanted kidney. 2. Clips in the left pelvis and skin vito over the left lower abdomen and pelvis presumably for a left transplanted kidney. Spencer Carlson MD on April 13, 2016 at 9:44 Board Certified Radiologist. This report was verified electronically.
[2016-04-13] MEDS: PANTOPRAZOLE SODIUM 40 MG VIAL IV PUSH SCH (09:52)
[2016-04-13] MEDS: CALCIUM CARBONATE 500 MG CHEWABLE TAB CHEW SCH ×2 (09:52→17:25)
[2016-04-13] MEDS: predniSONE 20 MG TAB PO SCH (09:52)
[2016-04-13] MEDS: DILTIAZEM-CD 240 MG CAP ER PO SCH (09:52)
[2016-04-13] MEDS: NYSTATIN SUSP 500,000 U/5 ML CUP SWISH-SWAL SCH ×3 (09:53→20:41)
[2016-04-13] MEDS: DOCUSATE SODIUM 100 MG CAP PO SCH ×2 (09:53→20:38)
[2016-04-13] MEDS: METOPROLOL TARTRATE 25 MG TAB PO SCH ×2 (09:53→20:38)
--- NOTE | 2016-04-13 10:57 | MB ---
cc: MYLES NICOLE MD DATE OF PROGRESS NOTE: 04/12/2016 Mr. Newman is awake, alert, upright in bed. His mother is in the room with him this morning. Overnight he had two episodes of small amount of emesis but he claims he was not nauseated all day and these were more from his heartburn. He also had two small bowel movement. He continues to tolerate his diet and feels that something more solid may improve his ability to move his bowels. Otherwise he has no complaint of pain. He is continuing to ambulate more. Also he was reported to have episodes of atrial fibrillation for which he spontaneously converted overnight. This morning he is in sinus at rates of approximately in the 60s. His systolics are in the 150s. He is on room air and his T-max was 97.7. I&O's shows him to be positive about 850. Urine output was 306 for the last 24 hours. Within the last hour he put out 40 ccs of urine. His incision is clean, dry and intact. His Franklyn drain site has some seepage of serous looking clear fluid without bleeding or purulence. He otherwise remains without any scrotal edema and his extremity edema is mild. His labs this morning show a white count of 5.6, hematocrit is 25. His platelet count is 110. His lymphocyte count remains at 0.1 and his sodium is 137, potassium 4.6. His creatinine this morning is 10.28. His phosphorus level this morning is 7.6, his magnesium is 2.7. His Prograf level from yesterday was at 7, this is at a dose of 3 mg p.o. q. 12 hours. ASSESSMENT/PLAN Mr. Newman appears to continue to do well. His urine output is beginning to tile picker substantially, however, it is still below the level where his creatinine is decreased. His last dialysis was on Tuesday and thus, he has been increasing the interval between dialysis. I spoke of discontinuing the Weeks catheter today once he completes his dialysis with possible discharge subsequently. He will be staying local. Assuming he has no further episodes of atrial fibrillation or emesis he should be able to be discharged once we make sure that he has the option of being able to do outpatient dialysis locally as well as being able to have his immunosuppressive medications. Myles Nicole MD Rounds were performed with Tamela Batres, Tanja Carrasco, and Curtis Barry present. LARISSA/JALEN /8:21 AM /10:56 AM NICKI
--- NOTE | 2016-04-13 10:57 | MB ---
cc: SEAN CAIN MD DATE OF CONSULTATION: 04/11/2016 Mr. Newman was napping this morning, was very easily arousable. He was alert and awake, fully oriented and engaging in appropriate conversation. Overnight he says that he had no problems sleeping and getting good rest he has been on oral analgesics. He is tolerating his full liquid diet. He continues to pass flatus but has not had bowel movement. He states that he is encouraged by the increase in his urine output. Overnight his T-max was 97.6, his heart rates have been better controlled in the 60s and 70s. He is on room air, breathing at a rate of about 18, sating at 99 to 100% and his systolics have been in the 140s to 150s. His I&O's show that he is about 1800 ccs positive. His urine output was 107 ccs over the last 24 hours for a total of approximately 150 ccs for 24 hours. He has put out 10 ccs from his Franklyn drain. His weight today is 92.4 kilos. On exam he does not appear to be in any type of labored breathing. The abdomen is soft, nontender and nondistended. His incision is clean, dry, intact with vito in place without any leak or discharge. His Franklyn drain site remains dry ___ serosanguineous fluid. His exam shows no scrotal edema. His extremities show minimal edema. His labs this morning show his white count is 4.5, his hematocrit is 25.2. His platelet count is 104. His lymphocyte count is 0.1. His chemistry shows sodium is 138. His potassium is 4.4. His creatinine is 8.83 and his phosphorus is 7.4. Yesterday's Prograf level was 1.8. That level was only on his first dose of Prograf the previous evening. ASSESSMENT/PLAN Mr. Newman continues to have improving renal function with essentially a doubling of his urine outputs daily. He is on 3 mg p.o. q. 12 of tacrolimus as well as 20 mg of prednisone as well as 1000 mg q. 12 of mycophenolate. For today I have mentioned that it may be a possibility that he may be able to go home. We will provide assistance in helping him have a bowel movement. However, he has tolerated his p.o. intake well and we will discontinue his maintenance IV fluids. In addition, we will provide him with prune juice. His glucoses have remained stable and within normal limits and we will discontinue his Accu-Cheks. Similarly in preparation for his transition we will remove his Franklyn drain. We will see if he will require any dialysis today and if so this may hold his discharge. MD LARISSA Ochoa/JALEN /9:00 AM /10:55 AM [facility]
--- NOTE | 2016-04-13 11:07 | HHI.NPPN ---
Subjective History of Present Illness 45 year old male Kidney transplant # 2 Additional Remarks had ATN back in NSR Review of Systems Gastrointestinal Gastrointestinal: Abdominal Pain Objective Data Data 04/12/16 04/13/16 19:00 07:00 Intake Total 457 ml Output Total 775 ml 150 ml Balance -318 ml -150 ml Intake Oral 390 ml IV Total 67 ml Output Urine Total 175 ml 150 ml Hemodialysis 600 ml Vital Signs Date Time Temp Pulse Resp B/P Pulse Ox O2 Delivery O2 Flow Rate FiO2 04/13/16 07:32 97.9 73 16 147/83 98 04/13/16 07:00 73 04/13/16 06:00 70 04/13/16 05:00 71 04/13/16 04:00 75 04/13/16 03:00 69 04/13/16 03:00 98.1 69 16 145/75 98 04/13/16 02:00 71 04/13/16 01:00 72 04/13/16 00:00 72 04/12/16 23:00 72 04/12/16 23:00 98.1 72 16 158/80 99 04/12/16 22:00 71 04/12/16 21:00 74 04/12/16 20:00 72 04/12/16 19:00 97.7 68 16 160/78 100 04/12/16 19:00 68 04/12/16 18:00 68 04/12/16 17:00 87 04/12/16 16:31 98.4 75 16 149/75 97 04/12/16 16:30 74 04/12/16 12:00 69 04/12/16 11:41 97.5 66 16 100 142/71 -: 04/13/16 0213 04/13/16212 Physical Exam General Appearance: Well Developed Eyes Eye Exam: Pupils Equal Neck Neck Exam: Neck Supple Pulmonary Resp Exam: Decreased Bases Cardiology CV Exam: Arrhythmia, Tachycardia Gastrointestinal/Abdomen GI Exam: Soft (surgical incision left lower abdomen) Extremeties Extremities Exam: Trace Edema Neurologic Neuro Exam: Alert Assessment/Plan Problem List: (1) Kidney transplant status, cadaveric Plan: UOP slowly improving Cr lower post dialysis H&H stable Prednisone 20 mg started 04/10 Prograf 3 mg q 12 , cellcept 1000 mg bid constipated give Mineral oil enema discharge planning (2) Hypertension Plan: Blood pressure is stable (3) Atrial fibrillation Plan: back in NSR as above (4) Hyperkalemia Plan: Resolved Sylvester Romano MD Apr 13, 2016 11:07
[2016-04-13] MEDS ORDERED: MINERAL OIL ENEMA 118 ML BTL RECTAL ONE (11:15)
[2016-04-13] MEDS ORDERED: BISACODYL 10 MG SUPP RECTAL PRN (14:00)
--- NOTE | 2016-04-13 14:09 | MB ---
cc: SEAN CAIN MD PROGRESS NOTE DATE: 04/13/2016 Mr. Newman was awake, alert and in bed this morning. Overnight he had an episode of nausea with some emesis around the time of his intended discharge last night. Thus it was elected for him to remain in order to resolve his nausea. He denied any abdominal pain. He has not had any prolonged or persistent nausea. He had relief after his vomiting and did not have any subsequent episodes overnight. He has had no other bowel movements than what was reported earlier, but he continues to pass flatus. His T-max is 98.1, heart rate remains in the 70s, remains on room air, respiratory rate 16. His systolics are in the 140s. His urine output over 24 hours was 325; this was after he was dialyzed 600 cc. His weight is down approximately 1.5 kg. He is negative on his overall balance. He took in about 400 cc. On exam his abdomen is slightly distended but not tympanitic. His incision is clean, dry, intact without any evidence of infection. There is no drainage or leak and the vito are in intact. His dressing is soiled but not wet. His extremities remain minimally edematous. His rectal exam showed that he has no stool in the rectal vault and was not impacted. His labs show white count 5.4, hematocrit 24.9, platelet count 121, lymphocyte count remains 0.1. Sodium 139, potassium 4.7. BUN is 57 and creatinine 7.38 post dialysis. Phosphorus is down to 6.1. Calcium is 8.4. Tacrolimus level was 8.4 yesterday morning on stable dose of 3 mg q.12h. ASSESSMENT AND PLAN Mr. Newman appears to have episodic nausea with some vomiting which does not seem to be as related to fecal impaction as it is to loss of abdominal capacity secondary to having two intra-abdominal allografts. His abdominal film revealed some stool in the colon but not to the point of impaction. Thus we will have him increase his ambulation frequency and duration. We will allow him to have both Dulcolax and MiraLax. In addition, there is a suspicion that his GI symptoms may be secondary to his mycophenolate. Thus we have changed him to an enteric-coated formula using Myfortic. We will maintain him on his current Prograf dose as well as his steroid. Meanwhile, we have downgraded his dietary supplement to full liquids to avoid gastric distension. Otherwise his Weeks was discontinued this morning and given the expected volumes he has voided a small amount already. Lastly, we will monitor his progress for moving his bowels. MD LARISSA Ochoa/MEGA /10:46 AM /2:00 PM [facility]
[2016-04-13] MEDS: METOCLOPRAMIDE HCL 10 MG/2 ML VIAL IV PUSH SCH ×3 (14:37→20:38)
[2016-04-13] MEDS: MYCOPHENOLATE SODIUM 360 MG DELAYED RELEASE TAB PO SCH (18:24)
[2016-04-13] MEDS: oxyCODONE/ACETAMINOPHEN 5 MG/325 MG TAB PO PRN (21:32)
[2016-04-14] VITALS (16 sets, daily range): BP systolic 138–196; BP diastolic 68–97; PULSE 66–131; RESP 20–21; TEMP 97.1–98; O2SAT 98–100
[2016-04-14] MEDS ORDERED: LORazepam 2 MG/ML VIAL IVS PRN (00:45)
[2016-04-14] MEDS: cloNIDine HCL 0.1 MG TAB PO PRN (03:56)
[2016-04-14] MEDS: oxyCODONE/ACETAMINOPHEN 5 MG/325 MG TAB PO PRN (05:07)
[2016-04-14] MEDS: MYCOPHENOLATE SODIUM 360 MG DELAYED RELEASE TAB PO SCH ×2 (05:07→17:29)
[2016-04-14] MEDS: METOCLOPRAMIDE HCL 10 MG/2 ML VIAL IV PUSH SCH ×2 (05:08→17:29)
[2016-04-14] MEDS: TACROLIMUS 1 MG CAP PO SCH ×2 (05:32→17:30)
[2016-04-14 05:54] LABS: AUTOMATED NEUTROPHIL # 11.1 TH/MM3 (1.8-7.7); BASOPHIL % 0.2 % (0.0-2.0); EOSINOPHIL % 0.3 % (0.0-4.0); HEMO FLAGS DIFF FINAL; LYMPH % 1.8 % (9.0-44.0); LYMPHOCYTE # 0.2 TH/MM3 (1.0-4.8); MEAN CELL VOLUME 87.8 FL (80.0-100.0); MEAN CORPUSCULAR HEMOGLOBIN 28.9 PG (27.0-34.0); MONO % 2.6 % (0.0-8.0); NEUT % 95.1 % (16.0-70.0); PLATELET COUNT 208 TH/MM3 (150-450); RED CELL DISTRIBUTION WIDTH 14.9 % (11.6-17.2); WHITE BLOOD COUNT 11.6 TH/MM3 (4.0-11.0)
[2016-04-14 06:27] LABS: BICARBONATE 25.7 MEQ/L (21.0-32.0); MAGNESIUM 2.4 MG/DL (1.5-2.5); POTASSIUM 4.2 MEQ/L (3.5-5.1)
--- NOTE | 2016-04-14 08:35 | MB ---
cc: SEAN CAIN MD DATE: 04/14/2016 PROGRESS NOTE SUBJECTIVE This morning Mr. Newman appears drowsy but easily arousable and continues to engage in appropriate interaction and conversation. He was reported overnight to be restless and somewhat agitated and could not get very good sleep. He complains of feeling a sense of fullness in his bladder as if he always wants to void but nothing comes out. He was bladder scanned by the nurse who reported that she could not find any significant urine. He states that he has been trying to void but the sense of fullness is always keeping him awake. With that he has not been able to get enough sleep. OBJECTIVE Overnight he was afebrile but his blood pressure systolics were in the 180s to 190s. His heart rate was below 100, but still elevated from his baseline. He remains on room air. On exam the Franklyn site appears to be moist and required changing of his dressing. His incision is clean, dry, intact, with vito in place. He has no abdominal distension. He had a bowel movement yesterday. His urine output is still being assessed this morning. His labs show that his potassium is within normal limits, however, his creatinine is elevated to the mid 8 range. His white count is 11.6, platelet count 120, hematocrit 29. ASSESSMENT AND PLAN Mr. Newman is having symptoms of bladder fullness. In recollection of yesterday's rectal exam he appears to have an enlarged prostate. Thus we will begin Flomax this morning and replace his Weeks catheter. He will be referred to urology for reevaluation of his prostate. We will determine if he requires dialysis or not. We will also determine a better idea whether we can provide symptomatic relief. Should he require dialysis we will await completion of dialysis prior to determining whether he can be discharged today or not. Also, yesterday's episodes of vomiting appear to be more like wretching, and since it occurs twice a day, at similar times during the day, is not associated with emesis, and is not associated with nausea, it appears to be more likely related to a mediation induced etiology. Thus, we changed his Cellcept to Myfortic. MD LARISSA Ochoa/MEGA /8:03 AM /8:16 AM [facility]
[2016-04-14] MEDS ORDERED: TAMSULOSIN HCL 0.4 MG CAP PO SCH (09:00)
[2016-04-14] MEDS: DOCUSATE SODIUM 100 MG CAP PO SCH (09:07)
[2016-04-14] MEDS: predniSONE 20 MG TAB PO SCH (09:07)
[2016-04-14] MEDS: DILTIAZEM-CD 240 MG CAP ER PO SCH (09:07)
[2016-04-14] MEDS: NYSTATIN SUSP 500,000 U/5 ML CUP SWISH-SWAL SCH ×2 (09:07→13:44)
[2016-04-14] MEDS: CALCIUM CARBONATE 500 MG CHEWABLE TAB CHEW SCH ×2 (09:07→17:28)
[2016-04-14] MEDS: PANTOPRAZOLE SODIUM 40 MG VIAL IV PUSH SCH (09:07)
[2016-04-14] MEDS: METOPROLOL TARTRATE 25 MG TAB PO SCH (09:07)
[2016-04-14] MEDS: SULFAMETHOXAZOLE-TRIMETHOPRIM DS 800-160 MG TAB PO SCH (09:11)
[2016-04-14 10:32] LABS: INDIRECT BILIRUBIN 0.3 MG/DL (0.0-0.8); TOTAL BILIRUBIN ADULT 0.5 MG/DL (0.2-1.0)
[2016-04-14] MEDS ORDERED: CALCIUM GLUCONATE INJ 2 GM in SODIUM CHLORIDE 0.9% INJ 100 ML IV ONE (12:00)
--- NOTE | 2016-04-14 14:21 | HHI.NPPN ---
Subjective History of Present Illness 45 year old male Kidney transplant # 2 Interval History had urine retention Weeks placed 700 cc urine Additional Remarks had ATN back in NSR Review of Systems Gastrointestinal Gastrointestinal: Abdominal Pain Objective Data Data 04/13/16 04/14/16 19:00 07:00 Intake Total 420 ml 240 ml Output Total 50 ml Balance 420 ml 190 ml Intake Oral 420 ml 240 ml Output Urine Total 50 ml # Bowel Movements 1 0 Vital Signs Date Time Temp Pulse Resp B/P Pulse Ox O2 Delivery O2 Flow Rate FiO2 04/14/16 12:00 114 04/14/16 11:38 97.9 104 20 148/70 98 04/14/16 11:00 104 04/14/16 10:00 104 04/14/16 09:00 106 04/14/16 08:00 119 04/14/16 08:00 98.0 112 21 163/76 98 Manual Cuff/Auscultation 04/14/16 06:00 78 04/14/16 05:00 91 04/14/16 04:00 91 04/14/16 03:00 97.1 91 21 196/97 100 04/14/16 03:00 91 04/14/16 02:00 67 04/14/16 01:00 80 04/14/16 00:00 66 04/13/16 23:00 97.8 67 18 162/74 100 04/13/16 23:00 67 04/13/16 22:00 67 04/13/16 21:00 68 04/13/16 20:00 64 04/13/16 19:00 98.0 68 18 161/77 99 04/13/16 19:00 68 04/13/16 18:02 68 04/13/16 17:13 70 04/13/16 16:00 68 04/13/16 15:10 97.7 70 17 136/72 97 04/13/16 15:00 70 -: 04/14/16 0450 04/14/16 0450 Physical Exam General Appearance: Well Developed Eyes Eye Exam: Pupils Equal Neck Neck Exam: Neck Supple Pulmonary Resp Exam: Decreased Bases Cardiology CV Exam: Arrhythmia, Tachycardia Gastrointestinal/Abdomen GI Exam: Soft (surgical incision left lower abdomen) Extremeties Extremities Exam: Trace Edema Neurologic Neuro Exam: Alert Assessment/Plan Problem List: (1) Kidney transplant status, cadaveric Plan: UOP improving events noted d/w Dr. Nicole urine retention 700 cc possible resolution of ATN anticipated he was seen at dialysis as Cr was higher 600 cc uf Cr higher H&H stable Prednisone 20 mg started 04/10 Prograf 2 mg bid [place] level 9.2, Cellcept 1000 mg bid (2) Hypertension Plan: Blood pressure is stable (3) Atrial fibrillation Plan: back in NSR as above (4) Hyperkalemia Plan: Resolved Sylvester Romano MD Apr 14, 2016 14:21
[2016-04-14] MEDS: GELATIN 12 MM/7 MM FOAM TOP PRN (15:56)
[2016-04-14] MEDS: EPOETIN ALFA 10,000 UNITS/ML VIAL IV PRN (15:57)
[2016-04-14] MEDS ORDERED: TAMS5CAP PO (15:58)
[2016-04-14] MEDS ORDERED: MYCO180 PO (15:58)
--- NOTE | 2016-04-15 11:39 | MD ---
cc: SEAN CAIN MD ADMISSION DATE: 04/05/2016 DISCHARGE DATE: 04/14/2016 BRIEF HISTORY/HOSPITAL COURSE Mr. Newman is a 45-year-old male who received a donor kidney transplant on 04/06/2016. There was some cold ischemia time incurred but postop he recovered well from the anesthetic. His graft only produced a minimal amount of urine and so he required dialysis during the waiting period for his allograft to start functioning. He is classified as having delayed graft function. During subsequent time there was progressive improvement in the function as seen by progressive increase in his urine output. He was able to advance to have a solid food and a change to his medications from IV to p.o. It was then noted that although he continued to pass flatus that there was no bowel movement. He began to experience nausea and thus, withholding his ability to be discharged. He was switched from some of his medications known to have GI side effects. He subsequently demonstrated to having a bowel movement but his nausea persisted. In addition, upon discontinuation of his Weeks he experienced urinary retention. He most likely had an enlarged prostate. Thus, these prolonged his hospitalization and to address these issues a Weeks catheter was placed and he was started on Tamulosin. He is thus discharged without any further evidence of vomiting. He has had relief in his symptoms of bladder fullness. He was placed on a prostate agent, he has a followup with us as well as urology. We will see him in clinic for his followup visit. MD LARISSA Ochoa/JALEN /10:51 AM /11:29 AM NICKI
== END 2016-04-14 19:41 | disposition home or self-care (01) | DRG 652 ==
LOC: HCIS 18:56 → OBSVTOIN 20:17 → HCPC 04-06 01:05 → HCVR 04-06 01:06 → HCPC 04-08 10:46
PROVIDERS: ADMIT Surgery; ATTEND Surgery
PROC: 5A1D00Z (ICD-10-PCS; 2016-04-05)
PROC: 04CJ0ZZ Extirpation of Matter from Left External Iliac Artery, Open Approach (ICD-10-PCS; principal; 2016-04-06 00:55)
PROC: [UNRECOGNIZED PROCEDURE] (2016-04-07)
PROC: [UNRECOGNIZED PROCEDURE] (2016-04-07)
DX: I12.0 Hypertensive chronic kidney disease with stage 5 chronic kidney disease or end stage renal disease (principal); N17.0 Acute kidney failure with tubular necrosis; T86.19 Other complication of kidney transplant; N18.6 End stage renal disease; I25.810 Atherosclerosis of coronary artery bypass graft(s) without angina pectoris; E87.5 Hyperkalemia; E78.5 Hyperlipidemia, unspecified; Z95.1 Presence of aortocoronary bypass graft; I48.91 Unspecified atrial fibrillation; K59.00 Constipation, unspecified; N40.1 Benign prostatic hyperplasia with lower urinary tract symptoms; R33.8 Other retention of urine; Y83.0 Surgical operation with transplant of whole organ as the cause of abnormal reaction of the patient, or of later complication, without mention of misadventure at the time of the procedure; Z99.2 Dependence on renal dialysis
CPT/HCPCS: 36430; 71010; 74000; 76776; 76937; 80048; 80053; 80076; 80197; 82805; 82948; 83735; 84100; 84155; 85007; 85025; 85027; 85610; 85730; 86850; 86900; 86901; 86920; 90935; 93005; 94150; 94664; 96374; C1757; C9113; J0131; J0610; J0690; J1160; J1200; J1642; J1644; J2060; J2250; J2270; J2370; J2405; J2710; J2765; J2930; J3010; J7030; J7040; J7050; J7507; J7511; J7512; J7517; J7518; P9016; Q0163; Q4081

== ENCOUNTER → 2016-04-26 | Outpatient (CLI) | payer MEDICARE, OTHER ==
[~2016-04-26] MED LIST changes: +ASPI1TAB69 PO; -ASPI81 PO; -ATOR10 PO; +BACT800T5 PO; -CELL500T PO; +DIATRIZOATE MEG 30% 300 ML BOTTLE (for RAD DIAG) BLADDER ONE; +DILT240C36 PO; +DOCU100C PO; +DOXY100C PO; +HYDR-3516 PO; +METO25TA3 PO; -METO50TA PO; +MYCO180 PO; +NYST1000 SWISH-SWAL; -OMEP20CA5 PO; +PANT20 PO; +POLY17S PO; +PRED-503 PO; -PRED5SOL PO; -PROG1CAP PO; +REGL5TAB PO; +TACR1CAP PO; +TAMS5CAP PO; +VALG450 PO
--- NOTE | 2016-04-26 15:12 | RADRPT ---
EXAM DATE/TIME: 04/26/2016 13:57 [facility] COMPARISON: No previous studies available for comparison. INDICATIONS : Post kidney transplant. Check for ureteral anastomosis. 3.6 minutes CONTRAST: 150 cc Cystografin MEDICAL HISTORY : Renal failure SURGICAL HISTORY : CABG. Kidney Transplant ENCOUNTER: Initial ACUITY: 3 weeks PAIN SCORE: 0/10 LOCATION: Bilateral Bladder FINDINGS: Preliminary film is unremarkable. A Weeks catheter in place within the urinary bladder and surgical s taples in the left hemipelvis. Calcified right renal transplant in the upper right pelvis. Urinary bladder was filled in a retrograde fashion via a Weeks catheter. Urinary bladder is intact with a moderate size right diverticulum and no evidence of reflux into the transpl ant ureter and no evidence of extravasation. CONCLUSION: Intact bladder without evidence of extravasation no reflux into the transplant ureter . Moderate size right bladder diverticulum appreciated. Catheter removed at the termination of proced ure. Rico Archer MD on April 26, 2016 at 15:09 Board Certified Radiologist. This report was verified electronically.
== END ==
LOC: HRAD 12:36
PROVIDERS: ATTEND Surgery
DX: Z94.0 Kidney transplant status (principal)
CPT/HCPCS: 74430; Q9958

== ENCOUNTER 2016-06-07 10:26 | Inpatient (IN) | payer MEDICARE, OTHER ==
[~2016-06-07] VITALS: Ht 177.8 cm; Wt 71.1 kg
[~2016-06-07 10:26] MED LIST changes: -ASPI1TAB69 PO; -DIATRIZOATE MEG 30% 300 ML BOTTLE (for RAD DIAG) BLADDER ONE; -DOXY100C PO; -HYDR-3516 PO; -PANT20 PO; -POLY17S PO; -REGL5TAB PO
[2016-06-07 10:37] VITALS: BP 102/66; PULSE 68; RESP 15; TEMP 97.6; O2SAT 97
--- NOTE | 2016-06-07 10:38 | PD ---
HPI Chief Complaint: GI Complaint Time Seen by Provider: 10:38 Travel History International Travel<30 days: No Contact w/Intl Traveler<30days: No Traveled to known affect area: No History of Present Illness HPI 45-year-old male came to the emergency room with history of generalized weakness , dehydration and hypotension. He was sent from his renal transplant surgeon's office where his blood pressure was 70 systolic. Patient says that for past 1 week he has not been eating too much since his appetite is low. He feels backed up and hasn't had any good bowel movement. However he has been losing watery stool per rectum. He gets dizzy and lightheaded but has not had any syncopal episodes. He recently had a kidney transplant done in March 2016. He is on immunosuppressant medications and he is taking them like he supposed to. Patient says he has been making good urine. He said that his transplant surgeon wanted me to call him and discuss this case with him. Transplant surgeon is Dr. Chacko. Vital signs in the ER was relatively normal. [facility] Past Medical History Narrative Medical List of his past medical, surgical, social and family history is reviewed from the nursing note. Autoimmune Disease: Yes (LUPUS) Heart Rhythm Problems: Yes (A FIB DURING DIALYSIS A FEW TIMES) Cancer: No Cardiac Catheterization: No Cardiovascular Problems: Yes High Cholesterol: Yes Chest Pain: Yes Congestive Heart Failure: No Coronary Artery Disease: Yes Diabetes: No Endocrine: No Genitourinary: Yes Hypertension: Yes (TAKES CLONIDINE AND LOPRESSOR) Musculoskeletal: No Neurologic: No Psychiatric: No Reproductive: No Respiratory: No Myocardial Infarction: Yes Renal Failure: Yes Past Surgical History Abdominal Surgery: No Cardiac Surgery: Yes (BYPASS SURGERY 2 TIMES) Coronary Artery Bypass Graft: Yes Eye Surgery: No Genitourinary Surgery: Yes Thoracic Surgery: No Other Surgery: Yes (RT KIDNEY TRANSPLANT) Social History Alcohol Use: Yes Tobacco Use: Yes Substance Use: No Allergies-Medications (Allergen,Severity, Reaction): Coded Allergies: Compazine (Verified Allergy, Severe, 06/07/16) *MDRO Multi-Drug Resistant Organism (Verified Adverse Reaction, Unknown, ) 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 Reported Meds & Prescriptions Reported Meds & Active Scripts Active Reported Aspirin 81 Mg Tabdr 81 Mg PO DAILY Myfortic (Mycophenolate Sodium) 180 Mg Tab 720 Mg PO BID Bactrim DS (Sulfamethoxazole-Trimethoprim) 800-160 Mg Tab 1 Tab PO Tacrolimus 1 Mg Cap 3 Mg PO Q12H Metoprolol Tartrate 25 Mg Tab 50 Mg PO BID Valcyte (Valganciclovir) 450 Mg Tab 450 Mg PO DAILY Deltasone (Prednisone) 20 Mg Tab 5 Mg PO DAILY Narrative Medication List of his home medications reviewed from the nursing note. Review of Systems Except as stated in HPI: all other systems reviewed are Neg Physical Exam Narrative GENERAL: Awake, alert, moderate distress SKIN: Warm and dry. Pale. Surgical scar in the left lower quadrant with some drainage from an incisional area which is not healing. The drainage is yellowish to purulent HEAD: Atraumatic. Normocephalic. EYES: Pupils equal and round. No scleral icterus. No injection or drainage. ENT: No nasal bleeding or discharge. Dry mucous membrane with coated tongue NECK: Trachea midline. No JVD. CARDIOVASCULAR: Regular rate and rhythm. No murmur appreciated. RESPIRATORY: No accessory muscle use. Clear to auscultation. Breath sounds equal bilaterally. GASTROINTESTINAL: Abdomen soft, non-tender, nondistended. Hepatic and splenic margins not palpable. MUSCULOSKELETAL: No obvious deformities. No clubbing. No cyanosis. No edema. NEUROLOGICAL: Awake and alert. No obvious cranial nerve deficits. Motor grossly within normal limits. Normal speech. PSYCHIATRIC: Appropriate mood and affect; insight and judgment normal. Data Data Last Documented VS Vital Signs Date Time Temp Pulse Resp B/P Pulse Ox O2 Delivery O2 Flow Rate FiO2 06/07/16 11:02 96 Room Air 06/07/16 10:39 17 06/07/16 10:37 97.6 68 102/66 Orders Complete Blood Count With Diff (06/07/16 10:48) Comprehensive Metabolic Panel (06/07/16 10:48) Lipase (06/07/16 10:48) Lactic Acid (06/07/16 10:48) Prothrombin Time / Inr (Pt) (06/07/16 10:48) Ct Abd/Pel W/O Iv Contrast (06/07/16 10:48) Iv Access Insert/Monitor (06/07/16 10:48) Ecg Monitoring (06/07/16 10:48) Oximetry (06/07/16 10:48) Sodium Chlor 0.9% 1000 Ml Inj (Ns 1000 M (06/07/16 10:48) Sodium Chloride 0.9% Flush (Ns Flush) (06/07/16 11:00) Us Kidney / Transplant (06/07/16 ) Type And Screen (06/07/16 10:51) C Diff Toxin Pcr (06/07/16 10:51) Sodium Chlor 0.9% 1000 Ml Inj (Ns 1000 M (06/07/16 12:15) Magnesium Sulfate 1 Gm Premix (Magnesium (06/07/16 12:15) Magnesium Sulfate 1 Gm Premix (Magnesium (06/07/16 12:15) Consult Nephrology (06/07/16 ) Admit Order (Ed Use Only) (06/07/16 13:10) Labs Laboratory Tests Test 06/07/16 10:55 Prothrombin Time 10.7 SEC Prothromb Time International 1.0 RATIO Ratio Sodium Level 135 MEQ/L Potassium Level 4.9 MEQ/L Chloride Level 101 MEQ/L Carbon Dioxide Level 28.1 MEQ/L Anion Gap 6 MEQ/L Blood Urea Nitrogen 29 MG/DL Creatinine 1.55 MG/DL Estimat Glomerular Filtration 48 ML/MIN Rate Random Glucose 119 MG/DL Lactic Acid Level 1.1 mmol/L Calcium Level 10.1 MG/DL Total Bilirubin 0.4 MG/DL Aspartate Amino Transf 58 U/L (AST/SGOT) Alanine Aminotransferase 84 U/L (ALT/SGPT) Alkaline Phosphatase 144 U/L Total Protein 7.4 GM/DL Albumin 4.0 GM/DL Lipase 131 U/L Blood Type O POSITIVE Antibody Screen NEGATIVE White Blood Count 7.7 TH/MM3 Red Blood Count 4.79 MIL/MM3 Hemoglobin 13.5 GM/DL Hematocrit 42.1 % Mean Corpuscular Volume 88.0 FL Mean Corpuscular Hemoglobin 28.2 PG Mean Corpuscular Hemoglobin 32.1 % Concent Red Cell Distribution Width 16.6 % Platelet Count 87 TH/MM3 Mean Platelet Volume 11.3 FL Neutrophils (%) (Auto) 82.9 % Lymphocytes (%) (Auto) 5.3 % Monocytes (%) (Auto) 10.5 % Eosinophils (%) (Auto) 0.7 % Basophils (%) (Auto) 0.6 % Neutrophils # (Auto) 6.4 TH/MM3 Lymphocytes # (Auto) 0.4 TH/MM3 Monocytes # (Auto) 0.8 TH/MM3 Eosinophils # (Auto) 0.1 TH/MM3 Basophils # (Auto) 0.0 TH/MM3 CBC Comment AUTO DIFF Differential Total Cells 100 Counted Neutrophils % (Manual) 82 % Band Neutrophils % 6 % Lymphocytes % 3 % Monocytes % 9 % Neutrophils # (Manual) 6.8 TH/MM3 Differential Comment FINAL DIFF MANUAL Platelet Estimate LOW Platelet Morphology Comment NORMAL Tear Drop Cells 1+ Ovalocytes 2+ MDM Medical Decision Making Medical Screen Exam Complete: Yes Emergency Medical Condition: Yes Medical Record Reviewed: Yes Differential Diagnosis Dehydration, electrolyte abnormality, renal transplant rejection Narrative Course 12:24 PM blood test results are back. Patient does have some degree of dehydration. I spoke with Dr. Chacko patient's transplant surgeon and he had done blood work in his office this morning as well which patient had failed to mention to me. He had added magnesium and phosphorus which were low. As per him patient has probably an ileus because of the low mag and phosphorus which is a common complain with posttransplant patients. I did give him 2 g of magnesium is replacement. He wanted me to consult patient's [place] mason Dr. Chaparro and I just finished speaking with him. Patient will be admitted and Dr. Chaparro will consult on him. Awaiting for the resident to call back for admission. CAT scan of the abdomen was done which does not show any gross acute abnormalities. I did discuss the CAT scan report with Dr. Chacko. Awaiting for the ultrasound of the transplanted kidney. Procedures EKG Prior to Arrival: No Physician Communication Physician Communication Dr. Shankar Holman Diagnosis Primary Impression: Dehydration Additional Impressions: Chronic diarrhea Status post kidney transplant Hypotension Qualified Code: I95.9 - Hypotension, unspecified hypotension type Admitting Information Admitting Physician Requests: Admit Crystal Jerez MD Jun 07, 2016 10:38 Crystal Jerez MD Jun 07, 2016 10:38
[2016-06-07] MEDS ORDERED: SODIUM CHLOR 0.9% 1000 ML INJ 1,000 ML IV SCH (10:48)
[2016-06-07] MEDS ORDERED: ASPI1TAB69 PO (10:50)
[2016-06-07] MEDS ORDERED: SODIUM CHLORIDE 0.9% FLUSH 5 ML FLUSH IVF PRN (11:00)
[2016-06-07 11:02] VITALS: O2SAT 96
[2016-06-07 11:09] LABS: AUTOMATED NEUTROPHIL # 6.4 TH/MM3 (1.8-7.7); BASOPHIL % 0.6 % (0.0-2.0); EOSINOPHIL # 0.1 TH/MM3 (0-0.4); EOSINOPHIL % 0.7 % (0.0-4.0); HEMATOCRIT 42.1 % (39.0-51.0); LYMPH % 5.3 % (9.0-44.0); LYMPHOCYTE # 0.4 TH/MM3 (1.0-4.8); MEAN CORPUSCULAR HEMOGLOBIN 28.2 PG (27.0-34.0); MEAN CORPUSCULAR HGB CONC 32.1 % (32.0-36.0); MONO % 10.5 % (0.0-8.0); NEUT % 82.9 % (16.0-70.0); PLATELET COUNT 87 TH/MM3 (150-450); RED BLOOD COUNT 4.79 MIL/MM3 (4.50-5.90); RED CELL DISTRIBUTION WIDTH 16.6 % (11.6-17.2); WHITE BLOOD COUNT 7.7 TH/MM3 (4.0-11.0)
[2016-06-07 11:10] LABS: HEMO FLAGS AUTO DIFF
[2016-06-07 11:14] LABS: PROTHROMBIN TIME - PATIENT 10.7 SEC (9.8-11.6)
[2016-06-07 11:29] LABS: ALT (GPT) 84 U/L (12-78); ANION GAP 6 MEQ/L (5-15); AST (GOT) 58 U/L (15-37); BICARBONATE 28.1 MEQ/L (21.0-32.0); BLOOD UREA NITROGEN 29 MG/DL (7-18); CHLORIDE 101 MEQ/L (98-107); GLOMERULAR FILTRATION RATE 48 ML/MIN (>89); POTASSIUM 4.9 MEQ/L (3.5-5.1); SODIUM (NA) 135 MEQ/L (136-145)
[2016-06-07 11:34] LABS: ALKALINE PHOSPHATASE 144 U/L (45-117); TOTAL BILIRUBIN ADULT 0.4 MG/DL (0.2-1.0)
--- NOTE | 2016-06-07 11:55 | RADRPT ---
EXAM DATE/TIME: 06/07/2016 11:10 [facility] COMPARISON: CYSTOGRAM (MIN 3VW), April 26, 2016, 13:57. INDICATIONS : Umbilical abdomen pain for one week. ORAL CONTRAST: No oral contrast ingested. RADIATION DOSE: 9.96 CTDIvol (mGy) MEDICAL HISTORY : Lupus. Hypertension. Myocardial infarction. renal failure. SURGICAL HISTORY : CABG right kidney transplant ENCOUNTER: Initial ACUITY: 1 week PAIN SCALE: 7/10 LOCATION: Umbilical abdomen TECHNIQUE: Volumetric scanning of the abdomen and pelvis was performed. Using automated exposure control and adjustment of the mA and/or kV according to patient size, radiation dose was kept as low as reasonably achievable to obtain optimal diagnostic quality images. FINDINGS: There is global atrophy of the [place] kidneys. There do appear to be transplanted kidneys in the herberth ac fossa regions bilaterally. The left transplanted kidney appears grossly normal. The right transp lanted kidney is heavily calcified and very likely not functioning. There is some mild cystic change seen at the [place] kidneys. The liver, spleen, pancreas and adrenal glands are normal. Atherosclerotic calcifications are seen t hroughout the arterial system. There is focal dilatation of the mid abdominal aorta measuring up to 3.2 cm. There is a mild umbilical hernia containing only mesenteric fat. The defect at the anterior abdominal wall measures 1.2 cm. The bowel is unremarkable. The structures within the pelvis are gr ossly intact. There does appear to be a diverticulum at the anterior right lateral aspect of the reba dder. There does appear to be a grade I anterior spondylolisthesis of L5 on S1. There appear to be pars de fects at L5. There is some minimal increased density identified at the posterior right lung base lik eduar related to atelectasis. CONCLUSION: 1. Transplanted kidneys in the pelvis bilaterally. The left transplanted kidney has a grossly martha l configuration. The right transplanted kidney is heavily calcified and likely nonfunctional. 2. Mild 3.2 cm abdominal aortic aneurysm. 3. Mild umbilical hernia containing only mesenteric fat. 4. Grade I anterior spondylolisthesis of L5 on S1 secondary to pars defects. 5. Minimal suspected atelectasis at the right lung base. Spencer Carlson MD on June 07, 2016 at 11:42 Board Certified Radiologist. This report was verified electronically.
[2016-06-07 12:10] LABS: BANDS 6 % (0-6); NEUTROPHIL # MANUAL DIFF 6.8 TH/MM3 (1.8-7.7); POLYS (SEG NEUTROPHILS) 82 % (16-70); WBC DIFF SAMPLE 100
[2016-06-07 12:11] LABS: OVALOCYTES 2+ (NORMAL)
[2016-06-07 12:12] LABS: PLATELET ESTIMATE SMEAR LOW (NORMAL)
[2016-06-07 12:14] LABS: PLATELET MORPHOLOGY NORMAL (NORMAL); SCAN/DIFF FINAL DIFF MANUAL; TEARDROP RBCS 1+ (NORMAL)
[2016-06-07] MEDS ORDERED: MAGNESIUM SULFATE 1 GM PREMIX 100 ML IV ONE ×2 (12:15)
[2016-06-07] MEDS ORDERED: SODIUM CHLOR 0.9% 1000 ML INJ 1,000 ML IV ONE (12:15)
--- NOTE | 2016-06-07 12:56 | RADRPT ---
EXAM DATE/TIME: 06/07/2016 11:32 [facility] COMPARISON: US KIDNEY / TRANSPLANT, April 09, 2016, 16:20. EXTERNAL COMPARISON : [facility], US RENAL TRANSPLANT, April 21, 2016, ABDOMEN, KUB ONLY , April 21, 2016. INDICATIONS : Increased BUN and Creatinine. MEDICAL HISTORY : Hypercholesterolemia. Hypertension. Lupus. CAD. Valvular heart disease. Chest p ain. Afib. Renal disease and failure. SURGICAL HISTORY : CABG. Nephrectomy. Bilateral kidney transplants. Gout removal from left el bow. Blood transfusions. ENCOUNTER: Subsequent ACUITY: 1 day PAIN SCORE: 0/10 LOCATION: Left lower quadrant MEASUREMENTS: TRANSPLANT KIDNEY: 12.8 x 6.4 x 5.6 cm LOCATION: Left lower quadrant. PREVIOUS ULTRASOUND: Apr 09 2016 PREVIOUS ARCUATE ARTERIES INDEX: Upper - 0.8 Mid - 0.7 Lower - 0.7 ARCUATE ARTERIES RESISTIVE INDEX: Upper - 0.7 Mid - 0.7 Lower - 0.7 MAIN RENAL ARTERY VELOCITY: (cm/sec): 113.9 MAIN RENAL VEIN: Patent EXTERNAL ILIAC ARTERY VELOCITY (cm/sec): 202.7 * NORMAL DOPPLER FINDINGS Arcuate arteries - RI = 0.6 - 0.8 Renal artery = under 200 cm/sec Renal vein = May be monophasic with continuous flow or demonstrate some pulsatility with cardiac cycl e FINDINGS: TRANSPLANT KIDNEY: Normal cortical thickness and echotexture. There is mild prominence to the co llecting system.. No peritransplant fluid collection. URINARY BLADDER: Within normal limits given the degree of distension. CONCLUSION: Mild prominence to the collecting system. Patent renal artery and veins. Werner Joyner MD FACR on June 07, 2016 at 12:51 Board Certified Radiologist. This report was verified electronically.
--- NOTE | 2016-06-07 13:23 | HHI.HP ---
[facility] Service Family Medicine Primary Care Physician [facility] Admission Diagnosis dehydration, hypotension, status post kidney transplant Diagnoses: Chief Complaint: hypotension, vomiting International Travel<30 Days: No Contact w/Intl Traveler<30days: No Known Affected Area: No History of Present Illness Patient is a 45 yo M, hx of lupus nephropathy s/p transplant x 2, most recently as Apr 06, sent to the ED by Dr. Nicole for hypotension in office. He reports having tightness in his stomach x 5 days. He then noticed that he was not able to tolerate po intake. He has not tolerated anything other than sips of water. He felt as though he was getting constipated so attempted treatment with Miralax without relief. Home health nurse checked on him on Tuesday and gave enema, productive of regular sized bowel movement. Since that time, he has continued to have small clear-brownish watery stool. No bloody but foul smelling stools. Patient went to see Dr. Chacko, who saw that patient was hypotensive to systolic 70s; sent patient to the ED. Patient had been experiencing dizziness, fatigue, weakness, decreased appetite. It has been almost 1 week since last full meal. He has attempted drinking Ensure once daily but had some difficulty. Eating a Frostie last night resulted in nausea and vomiting after only a couple of bites. No fainting but dizzy starting this morning when he awakened and got ready for doctor appt, now resolved. He has been taking immunosuppressant medication as prescribed and continues to have unchanged urine output, no hematuria. The incision for the kidney transplant is over the LLQ, healing but has area that is still not completely healed; he had vito removed last week and now incision covered with Steri-strips. (Kelli Mora MD) Review of Systems Constitutional: COMPLAINS OF: Fatigue, Dizziness, Change in appetite, DENIES: Fever, Chills Endocrine: DENIES: Polydipsia, Polyuria Eyes: DENIES: Blurred vision, Vision loss Respiratory: DENIES: Cough, Shortness of breath Cardiovascular: COMPLAINS OF: Dyspnea on Exertion, DENIES: Chest pain, Palpitations, Syncope Gastrointestinal: COMPLAINS OF: Abdominal pain, Diarrhea, Vomiting (x 1 yesterday after eating ice cream), DENIES: Black stools, Bloody stools, Nausea , Difficulty Swallowing Genitourinary: DENIES: Urinary frequency Musculoskeletal: DENIES: Joint pain, Joint Swelling Hematologic/lymphatic: DENIES: Bruising Neurologic: DENIES: Abnormal gait, Headache Psychiatric: DENIES: Anxiety, Confusion (Kelli Mora MD) Past Family Social History Past Medical History A Fib Lupus Kidney transplant March 2016 Past Surgical History Kidney transplant x 2 (1997 and 03/2016) CABG x 2 (2006 - vessel and 05/2015) Reported Medications Reported Meds & Active Scripts Active Reported Aspirin 81 Mg Tabdr 81 Mg PO DAILY Myfortic (Mycophenolate Sodium) 180 Mg Tab 720 Mg PO BID Bactrim DS (Sulfamethoxazole-Trimethoprim) 800-160 Mg Tab 1 Tab PO Tacrolimus 1 Mg Cap 3 Mg PO Q12H Metoprolol Tartrate 25 Mg Tab 50 Mg PO BID Valcyte (Valganciclovir) 450 Mg Tab 450 Mg PO DAILY Deltasone (Prednisone) 20 Mg Tab 5 Mg PO DAILY (Kelli Mora MD) Allergies: Coded Allergies: Compazine (Verified Allergy, Severe, 06/07/16) Family History dad: age 87, healthy? mom: age 70s, healthy? Social History Lives in [place] but staying in [facility] with friend since March to make appts post transplant No t/e/d No living will (Kelli Mora MD) Physical Exam Vital Signs Vital Signs Date Time Temp Pulse Resp B/P Pulse Ox O2 Delivery O2 Flow Rate FiO2 06/07/16 11:02 96 Room Air 06/07/16 10:39 17 06/07/16 10:37 97.6 68 15 102/66 97 Physical Exam GENERAL: This is a well-nourished, well-developed patient, in no apparent distress. SKIN: No rashes, ecchymoses or lesions. Cool and dry. Thoracotomy scar, RLQ kidney transplant scar. New LLQ kidney transplant scar covered with dressing that is soiled with yellowish fluid, steristrips in place over entire lesion having healing except for about 5 cm area. HEAD: Atraumatic. Normocephalic. No temporal or scalp tenderness. EYES: Pupils equal round and reactive. Extraocular motions intact. No scleral icterus. No injection or drainage. ENT: Nose without bleeding, purulent drainage or septal hematoma. Throat without erythema, tonsillar hypertrophy or exudate. Uvula midline. Airway patent. NECK: Trachea midline. No JVD or lymphadenopathy. Supple, nontender, no meningeal signs. CARDIOVASCULAR: Regular rate and rhythm without murmurs, gallops, or rubs. RESPIRATORY: Clear to auscultation. Breath sounds equal bilaterally. No wheezes , rales, or rhonchi. GASTROINTESTINAL: Normoactive bowel sounds. Abdomen soft, non-tender, nondistended. No hepato-splenomegaly, or palpable masses. No guarding. MUSCULOSKELETAL: Extremities without clubbing, cyanosis, or edema. AV fistula over left upper extremity. NEUROLOGICAL: Awake and alert. Cranial nerves II through XII intact. Motor and sensory grossly within normal limits. Five out of 5 muscle strength in all muscle groups. Normal speech. Laboratory Laboratory Tests Test 06/07/16 10:55 White Blood Count 7.7 Red Blood Count 4.79 Hemoglobin 13.5 Hematocrit 42.1 Mean Corpuscular Volume 88.0 Mean Corpuscular Hemoglobin 28.2 Mean Corpuscular Hemoglobin 32.1 Concent Red Cell Distribution Width 16.6 Platelet Count 87 Mean Platelet Volume 11.3 Neutrophils (%) (Auto) 82.9 Lymphocytes (%) (Auto) 5.3 Monocytes (%) (Auto) 10.5 Eosinophils (%) (Auto) 0.7 Basophils (%) (Auto) 0.6 Neutrophils # (Auto) 6.4 Lymphocytes # (Auto) 0.4 Monocytes # (Auto) 0.8 Eosinophils # (Auto) 0.1 Basophils # (Auto) 0.0 CBC Comment AUTO DIFF Differential Total Cells 100 Counted Neutrophils % (Manual) 82 Band Neutrophils % 6 Lymphocytes % 3 Monocytes % 9 Neutrophils # (Manual) 6.8 Differential Comment FINAL DIFF MANUAL Platelet Estimate LOW Platelet Morphology Comment NORMAL Tear Drop Cells 1+ Ovalocytes 2+ Prothrombin Time 10.7 Prothromb Time International 1.0 Ratio Sodium Level 135 Potassium Level 4.9 Chloride Level 101 Carbon Dioxide Level 28.1 Anion Gap 6 Blood Urea Nitrogen 29 Creatinine 1.55 Estimat Glomerular Filtration 48 Rate Random Glucose 119 Lactic Acid Level 1.1 Calcium Level 10.1 Total Bilirubin 0.4 Aspartate Amino Transf 58 (AST/SGOT) Alanine Aminotransferase 84 (ALT/SGPT) Alkaline Phosphatase 144 Total Protein 7.4 Albumin 4.0 Lipase 131 Blood Type O POSITIVE Antibody Screen NEGATIVE (Kelli Mora MD) Result Diagram: 06/07/16 1055 06/07/16 1055 Septic Shock Reassessment Heart: Regular rate and rhythm Lungs: Clear Skin: Warm Peripheral Pulses: Bounding Right Posterior Tibial Bounding Left Posterior Tibial Capillary Refill: <2 seconds (Kelli Mora MD) Assessment and Plan Assessment and Plan 45 yo M, hx of lupus s/p kidney transplant, having decreased po intake with diarrhea, concerning for ileus having symptomatic hypotension now resolved. Code Status Full Discussed Condition With Dr. Foote wdw: Dr. Calvin (Kelli Mora MD) Attending Attestation The patient has been seen and examined. The chart and all resident notes have been reviewed. I agree that inpatient care is appropriate and that a two midnight stay is expected for the reasons documented in the resident history and physical. I have discussed this with the resident and certify the resident s order for inpatient admission. (Keshia Calvin MD) Problem List: (1) Dehydration Status: Acute Plan: BP now normal, no reflex tachycardia noted, low concern for sepsis given normal vitals and no leukocytosis. Lactic acid 1.1. Decreased po intake x 1 week , now having diarrhea; possible gastroenteritis vs GI adverse rxn to mycophenolate vs ileus. Patient received 2L bolus in the ED. Additionally, possible ileus. -Admit to inpatient -NS at 100 mls/hr -Zofran prn -C Diff -Drug screen -Urine, wound, blood culture -CBC, CMP, Mg, Phos -PT consult given patient having dizziness prior to admission -Dulcolax pr x 1 (2) Hypotension Status: Acute Plan: No hypotension since presentation to the ED with patient with systolic BP 70s in ambulatory office, patient s/p 2L total bolus. -Monitor vitals -Blood culture -Wound culture -UA with culture -plan as above (3) Status post kidney transplant Status: Chronic Plan: Left Kidney transplant April [address] Nicole. Relatively immunocompromised state on immunosuppressive meds. Kidney US showing patent renal artery and veins. GFR stable at 48. -Consult nephrology -Continue transplant meds: Mycophenolate, Prednisone, Tacrolimus. Valcyte suspected for CMV prophylaxis. Bactrim to prevent PCP (4) Atrial fibrillation Status: Chronic Plan: Chart review with no clear hx of A fib. EKG 04/06/16 with no A fib. Supposedly having A fib during dialysis in the past. Patient with hx of CABG. BP can tolerate BB. -Continue Metoprolol 50 mg po bid -Continue Aspirin -Clonidine 0.1 mg po q6h prn BP > 160/90 (5) Thrombocytopenia Status: Acute Plan: 87K. Stable from 06/03. Possible related to Valcyte. No active hemorrhage. -monitor CBC (6) LFT elevation Status: Acute Plan: Likely due to hepatotoxicity 2/2 medications. Patient not obese, alcoholic and recent negative hepatitis labs in January 2016. Mycophenolate not uncommon to cause LFT elevation. -Monitor LFTs (7) Nutrition, metabolism, and development symptoms Status: Acute Plan: NS at 110 mls/hr Electrolytes: Mg 3.0, Phos 1.4, repleted, will repeat labs tomorrow Diet: Clear liquid, advance as tolerated (Kelli Mora MD) Physician Certification 2 Midnight Certification Type: Admission for Inpatient Services Order for Inpatient Services The services are ordered in accordance with Medicare regulations or non- Medicare payer requirements, as applicable. In the case of services not specified as inpatient-only, they are appropriately provided as inpatient services in accordance with the 2-midnight benchmark. Estimated LOS (days): 2 2 days is the estimated time the patient will need to remain in the hospital, assuming treatment plan goals are met and no additional complications. Post-Hospital Plan: Home (Kelli Mora MD) Problem Qualifiers (1) Hypotension: Qualified Code: I95.9 - Hypotension, unspecified hypotension type Kelli Mora MD Jun 07, 2016 13:23 Keshia Calvin MD Jun 07, 2016 21:09
[2016-06-07 13:47] VITALS: BP 147/68; PULSE 64; RESP 17; TEMP 97.8; O2SAT 100
[2016-06-07] MEDS ORDERED: SODIUM CHLORIDE 0.9% FLUSH 5 ML FLUSH FLUSH PRN (14:00)
[2016-06-07] MEDS ORDERED: ONDANSETRON HCL 4 MG/2 ML VIAL IVP PRN (14:00)
[2016-06-07] MEDS ORDERED: NALOXONE HCL 0.4 MG/ML AMP IV PRN (14:00)
[2016-06-07] MEDS: HEPARIN SODIUM - SQ 10,000 UNITS/ML VIAL SQ SCH (14:12)
--- NOTE | 2016-06-07 14:56 | PD.CONS ---
HPI Service Nephrology Consult Requested By Dr. Jerez Reason for Consult Kidney transplant [facility] History of Present Illness 45-year-old male with history of kidney transplant #2 and it was done here he has a incision on the left side. He developed the wound the drainage and was treated with the opening of his incision and he was healing with secondary intention, weekend he developed constipation receive an enema and then developed diarrhea he has about 8 loose stools and he is unable to eat or drink had lost his appetite came in today with hypotension blood pressure systolic was in 70s, he was sent to the emergency for hydration. Review of Systems Constitutional: COMPLAINS OF: Fatigue Gastrointestinal: COMPLAINS OF: Constipation, Diarrhea, Nausea, Anorexia Past Family Social History Allergies: Coded Allergies: Compazine (Verified Allergy, Severe, 06/07/16) Past Medical History Hypertension ESRD Previous failed kidney transplant Constipation Past Surgical History Previous kidney transplant AV fistula Kidney transplant #2 in April 06, 2016 Reported Medications Reported Meds & Active Scripts Active Reported Aspirin 81 Mg Tabdr 81 Mg PO DAILY Myfortic (Mycophenolate Sodium) 180 Mg Tab 720 Mg PO BID Bactrim DS (Sulfamethoxazole-Trimethoprim) 800-160 Mg Tab 1 Tab PO Tacrolimus 1 Mg Cap 3 Mg PO Q12H Metoprolol Tartrate 25 Mg Tab 50 Mg PO BID Valcyte (Valganciclovir) 450 Mg Tab 450 Mg PO DAILY Deltasone (Prednisone) 20 Mg Tab 5 Mg PO DAILY Active Ordered Medications Current Medications Medications (Trade) Dose Ordered Sig/Kaylan Route Start Time Stop Time Status Last Admin (NS Flush) 2 ml UNSCH PRN FLUSH 06/07/16 14:00 (NS Flush) 2 ml BID FLUSH 06/07/16 21:00 (Zofran Inj) 4 mg Q6H PRN IVP 06/07/16 14:00 (Heparin Inj) 5,000 units Q12H SQ 06/07/16 14:00 06/07/16 14:12 Naloxone HCl 0.4 mg 0.4 mg UNSCH PRN IV 06/07/16 14:00 (NS 1000 ml Inj) 1,000 ml @ 100 mls/hr Q10H IV 06/07/16 15:00 06/07/16 16:44 (Ecotrin Ec) 81 mg DAILY PO 06/08/16 09:00 (Lopressor) 50 mg BID PO 06/07/16 21:00 (Myfortic Dr) 720 mg BID@,18 PO 06/07/16 18:00 (Deltasone) 5 mg DAILY PO 06/08/16 09:00 (Prograf) 3 mg DAILY@,18 PO 06/07/16 18:00 (Valcyte) 450 mg DAILY PO 06/08/16 09:00 (Catapres) 0.1 mg Q6H PRN PO 06/07/16 16:00 Family History Noncontributory Social History Denies current smoking or alcohol use Physical Exam Vital Signs Vital Signs Date Time Temp Pulse Resp B/P Pulse Ox O2 Delivery O2 Flow Rate FiO2 06/07/16 13:47 97.8 64 17 147/68 100 Room Air 06/07/16 11:02 96 Room Air 06/07/16 10:39 17 06/07/16 10:37 97.6 68 15 102/66 97 Physical Exam GENERAL: Well-nourished, well-developed patient. SKIN: Warm and dry. HEAD: Normocephalic. EYES: No scleral icterus. No injection or drainage. NECK: Supple, trachea midline. No JVD or lymphadenopathy. CARDIOVASCULAR: Regular rate and rhythm without murmurs, gallops, or rubs. RESPIRATORY: Breath sounds equal bilaterally. No accessory muscle use. GASTROINTESTINAL: Abdomen soft, non-tender, nondistended. small opening Left wound. EXTREMITIES: No cyanosis, or edema. NEUROLOGICAL: Awake, alert, and oriented x 3. Non-focal. Laboratory Laboratory Tests Test 06/07/16 10:55 White Blood Count 7.7 Red Blood Count 4.79 Hemoglobin 13.5 Hematocrit 42.1 Mean Corpuscular Volume 88.0 Mean Corpuscular Hemoglobin 28.2 Mean Corpuscular Hemoglobin 32.1 Concent Red Cell Distribution Width 16.6 Platelet Count 87 Mean Platelet Volume 11.3 Neutrophils (%) (Auto) 82.9 Lymphocytes (%) (Auto) 5.3 Monocytes (%) (Auto) 10.5 Eosinophils (%) (Auto) 0.7 Basophils (%) (Auto) 0.6 Neutrophils # (Auto) 6.4 Lymphocytes # (Auto) 0.4 Monocytes # (Auto) 0.8 Eosinophils # (Auto) 0.1 Basophils # (Auto) 0.0 CBC Comment AUTO DIFF Differential Total Cells 100 Counted Neutrophils % (Manual) 82 Band Neutrophils % 6 Lymphocytes % 3 Monocytes % 9 Neutrophils # (Manual) 6.8 Differential Comment FINAL DIFF MANUAL Platelet Estimate LOW Platelet Morphology Comment NORMAL Tear Drop Cells 1+ Ovalocytes 2+ Prothrombin Time 10.7 Prothromb Time International 1.0 Ratio Sodium Level 135 Potassium Level 4.9 Chloride Level 101 Carbon Dioxide Level 28.1 Anion Gap 6 Blood Urea Nitrogen 29 Creatinine 1.55 Estimat Glomerular Filtration 48 Rate Random Glucose 119 Lactic Acid Level 1.1 Calcium Level 10.1 Total Bilirubin 0.4 Aspartate Amino Transf 58 (AST/SGOT) Alanine Aminotransferase 84 (ALT/SGPT) Alkaline Phosphatase 144 Total Protein 7.4 Albumin 4.0 Lipase 131 Blood Type O POSITIVE Antibody Screen NEGATIVE Result Diagram: 06/07/16 1055 06/07/16 1055 Assessment and Plan Problem List: (1) Kidney transplant status, cadaveric Plan: pt has dehydration from not drinking fluids and diarrhea tacro level high monitor (2) Hypotension Plan: Corrected by giving him IV fluids (3) Dehydration Plan: On IV hydration Problem Qualifiers (1) Hypotension: Qualified Code: I95.9 - Hypotension, unspecified hypotension type Sylvester Romano MD Jun 07, 2016 14:56
[2016-06-07] MEDS ORDERED: cloNIDine HCL 0.1 MG TAB PO PRN (16:00)
[2016-06-07] MEDS ORDERED: BISACODYL 10 MG SUPP RECTAL ONE (16:00)
[2016-06-07] MEDS: SODIUM CHLOR 0.9% 1000 ML INJ 1,000 ML IV SCH ×2 (16:44→18:09)
[2016-06-07 16:54] VITALS: BP 165/71; PULSE 65; RESP 18; O2SAT 98
--- NOTE | 2016-06-07 19:12 | HHI.FPPN ---
Subjective Subjective Patient seen and examined. Case reviewed and discussed Please refer to resident H&P for further details regarding HPI, ROS, PMH, SurgHx , FH and SocHx In summary, patient is a 45yoM with a history of SLE and lupus nephritis and subsequent ESRD s/p renal transplant x 2. Most recent transplant was 04/06/[address] Chacko. Patient reported to the hospital today after being seen in Dr. Chacko's office with hypotension. Patient reports a one week history of weakness, poor appetite and PO intake, and constipation. He reports normal urine output until 1 day ago when it became more concentrated Denies fevers, chills. [facility] Objective Objective Last Impressions Renal Ultrasound 06/07/16 0000 Signed Impressions: Service Date/Time: Tuesday, June 07, 2016 11:32 - CONCLUSION: Mild prominence to the collecting system. Patent renal artery and veins. Werner Joyner MD FACR Laboratory Tests - Abnormals Test 06/07/16 10:55 Platelet Count 87 TH/MM3 Mean Platelet Volume 11.3 FL Neutrophils (%) (Auto) 82.9 % Lymphocytes (%) (Auto) 5.3 % Monocytes (%) (Auto) 10.5 % Lymphocytes # (Auto) 0.4 TH/MM3 Neutrophils % (Manual) 82 % Lymphocytes % 3 % Monocytes % 9 % Platelet Estimate LOW Tear Drop Cells 1+ Ovalocytes 2+ Sodium Level 135 MEQ/L Blood Urea Nitrogen 29 MG/DL Creatinine 1.55 MG/DL Estimat Glomerular Filtration 48 ML/MIN Rate Random Glucose 119 MG/DL Aspartate Amino Transf 58 U/L (AST/SGOT) Alanine Aminotransferase 84 U/L (ALT/SGPT) Alkaline Phosphatase 144 U/L Vital Signs 06/07/16 06/07/16 06/07/16 06/07/16 10:37 10:39 11:02 13:47 Temp 97.6 97.8 Pulse 68 64 Resp 15 17 B/P 102/66 147/68 Pulse Ox 97 96 100 O2 Delivery Room Air Room Air 06/07/16 16:54 Pulse 65 Resp 18 B/P 165/71 Pulse Ox 98 O2 Delivery Room Air Physical exam GENERAL: Thin male, NAD, resting in bed. SKIN: Warm and dry. No rashes. HEAD: Normocephalic. AT EYES: No scleral icterus. No injection or drainage. ENT: OP clear. MMM NECK: Supple, trachea midline. No JVD or lymphadenopathy. CARDIOVASCULAR: Regular rate and rhythm without audible murmurs, gallops, or rubs. RESPIRATORY: Breath sounds equal and clear to auscultation bilaterally. No accessory muscle use. GASTROINTESTINAL: Abdomen soft, mildly tender over the LLQ over renal tranplant site, incision with serosanguinous drainage, minimal ?purulence, nondistended. Normal active BS, no guarding, no rebound. MUSCULOSKELETAL: No cyanosis, or edema. No calf tenderness BACK: Nontender without obvious deformity. No CVA tenderness. NEURO: Awake and alert. Normal speech. MAEW. CN grossly intact. Assessment Assessment 45yoM admitted with: Hypotension Dehydration Constipation Non-healing wound s/p renal transplant Recently supratherapeutic tacrolimus level Transaminitis Thrombocytopenia SLE CAD s/p CABG PLAN PLAN IVF Renal consult Wound care consult Infectious work-up - no antibiotics for now Orthostatic VS Monitor blood pressures Bowel regimen Resume home meds as appropriate Tacrolimus level Patient seen and examined. Case reviewed and discussed Agree with plan of care as discussed with me and documented in the resident note. Keshia Calvin MD Jun 07, 2016 19:12
[2016-06-07 20:00] VITALS: BP 151/75; PULSE 76; RESP 20; TEMP 98.5; O2SAT 99
[2016-06-07] MEDS: METOPROLOL TARTRATE 25 MG TAB PO SCH (20:00)
[2016-06-07] MEDS: SODIUM CHLORIDE 0.9% FLUSH 5 ML FLUSH FLUSH SCH (20:00)
[2016-06-07 20:05] VITALS: PULSE 79
[2016-06-07] MEDS ORDERED: POTASSIUM PHOSPHATE MONOBASIC 500 MG TAB PO ONE (21:15)
[2016-06-07] MEDS: MORPHINE SULFATE 4 MG/ML INJ IV PUSH PRN (23:28)
[2016-06-08] VITALS: BP 144/76; PULSE 78; RESP 20; TEMP 97.8; O2SAT 98
[2016-06-08] MEDS: HEPARIN SODIUM - SQ 10,000 UNITS/ML VIAL SQ SCH ×2 (03:46→12:09)
[2016-06-08] MEDS: MORPHINE SULFATE 4 MG/ML INJ IV PUSH PRN ×4 (03:46→20:27)
[2016-06-08 04:00] VITALS: BP 150/82; PULSE 80; RESP 20; TEMP 98; O2SAT 98
[2016-06-08 05:44] LABS: AUTOMATED NEUTROPHIL # 3.2 TH/MM3 (1.8-7.7); BASOPHIL % 0.7 % (0.0-2.0); EOSINOPHIL % 0.8 % (0.0-4.0); HEMATOCRIT 37.8 % (39.0-51.0); LYMPH % 7.7 % (9.0-44.0); LYMPHOCYTE # 0.3 TH/MM3 (1.0-4.8); MEAN CELL VOLUME 86.9 FL (80.0-100.0); MEAN CORPUSCULAR HEMOGLOBIN 28.5 PG (27.0-34.0); MEAN CORPUSCULAR HGB CONC 32.7 % (32.0-36.0); MONO % 11.7 % (0.0-8.0); NEUT % 79.1 % (16.0-70.0); PLATELET COUNT 71 TH/MM3 (150-450); RED BLOOD COUNT 4.35 MIL/MM3 (4.50-5.90); RED CELL DISTRIBUTION WIDTH 16.6 % (11.6-17.2)
[2016-06-08 06:06] LABS: HEMO FLAGS AUTO DIFF
[2016-06-08 06:08] LABS: BICARBONATE 22.3 MEQ/L (21.0-32.0); MAGNESIUM 2.4 MG/DL (1.5-2.5); POTASSIUM 4.4 MEQ/L (3.5-5.1)
[2016-06-08] MEDS: MYCOPHENOLIC ACID (AS MYCOPHENOLATE SODIUM) 180 MG DR TAB PO SCH ×2 (06:56→16:23)
[2016-06-08] MEDS: TACROLIMUS 1 MG CAP PO SCH ×2 (06:56→16:23)
[2016-06-08 07:36] LABS: ACANTHOCYTES OCC (NORMAL); OVALOCYTES 2+ (NORMAL); PLATELET ESTIMATE SMEAR LOW (NORMAL); PLATELET MORPHOLOGY NORMAL (NORMAL)
[2016-06-08 07:37] LABS: SCAN/DIFF AUTO DIFF CONFIRMED
[2016-06-08 08:33] VITALS: BP 141/82; PULSE 68; RESP 17; TEMP 98.5; O2SAT 99
[2016-06-08] MEDS: predniSONE 5 MG TAB PO SCH (08:50)
[2016-06-08] MEDS: METOPROLOL TARTRATE 25 MG TAB PO SCH ×2 (08:50→20:26)
[2016-06-08] MEDS: ASPIRIN EC 81 MG TABEC PO SCH (08:50)
[2016-06-08] MEDS: SODIUM CHLOR 0.9% 1000 ML INJ 1,000 ML IV SCH ×2 (08:51→21:00)
[2016-06-08] MEDS: SODIUM CHLORIDE 0.9% FLUSH 5 ML FLUSH FLUSH SCH ×2 (09:00→20:27)
[2016-06-08] MEDS ORDERED: SULFAMETHOXAZOLE-TRIMETHOPRIM DS 800-160 MG TAB PO SCH (09:30)
[2016-06-08] MEDS ORDERED: ACETAMINOPHEN/HYDROcodone 325 MG/5 MG TAB PO PRN (10:30)
[2016-06-08] MEDS: ACETAMINOPHEN/HYDROcodone 325 MG/5 MG TAB PO PRN ×3 (11:58→22:40)
[2016-06-08 12:00] VITALS: BP 148/71; PULSE 66; RESP 17; TEMP 97.5; O2SAT 99
[2016-06-08] MEDS: DOCUSATE SODIUM 50 MG/SENNA 8.6 MG TAB PO SCH ×2 (12:08→20:26)
--- NOTE | 2016-06-08 12:12 | RADRPT ---
EXAM DATE/TIME: 06/08/2016 11:16 [place] COMPARISON: CT ABDOMEN & PELVIS W/O CONTRAST, June 07, 2016, 11:10. INDICATIONS : Abdomen pain. MEDICAL HISTORY : lupus SURGICAL HISTORY : right kidney transplant 1997, left kidney transplant 2016 ENCOUNTER: Initial ACUITY: 1 day PAIN SCORE: 6/10 LOCATION: Bilateral abdomen FINDINGS: Supine and upright views of the abdomen were performed. Air is seen throughout the small and large b owel. Significant dilatation is not seen. Free air is not seen. There is a calcified kidney in the ri ght renal fossa. Clips are seen in the pelvis regions bilaterally. Vascular calcifications are seen. The lung bases are clear. CONCLUSION: Air seen throughout the small and large bowel likely related to ileus. Spencer Carlson MD on June 08, 2016 at 12:09 Board Certified Radiologist. This report was verified electronically.
--- NOTE | 2016-06-08 14:23 | HHI.FPPN ---
Subjective Remarks Patient reports that he had a rough night, stating that he had return of the mid abdominal periumbilical pain that he came in for. He states that it comes and goes in waves. The severity is 8/10 at baseline, up to 10 out of 10 at its worse. He states he has not had any nausea or vomiting since being admitted and has tolerated water and other fluids. He has not had a bowel movement but does note that he had significant watery stools yesterday. He denies fever, chills, new symptoms otherwise. He notes that he has taken pain medication in the past, specifically stating that usually any type of pain medication works for him. ( Priscilla Mora MD R1) Objective Vitals Vital Signs Date Time Temp Pulse Resp B/P Pulse Ox O2 Delivery O2 Flow Rate FiO2 06/08/16 12:00 97.5 66 17 148/71 99 06/08/16 08:33 98.5 68 17 141/82 99 06/08/16 04:00 98.0 80 20 150/82 98 06/08/16 00:00 97.8 78 20 144/76 98 06/07/16 20:05 79 06/07/16 20:00 98.5 76 20 151/75 99 06/07/16 16:54 65 18 165/71 98 Room Air I/O 06/07/16 06/07/16 06/07/16 06/08/16 06/08/16 06/08/16 07:00 15:00 23:00 07:00 15:00 23:00 Intake Total 358 ml 480 ml Output Total 550 ml 750 ml Balance -192 ml -270 ml Intake Oral 240 ml 480 ml IV Total 118 ml Output Urine Total 550 ml 750 ml # Bowel Movements 0 0 (Priscilla Mora MD R1) Result Diagram: 06/08/16 0453 06/08/16 0453 Imaging Last Impressions Abdomen/Pelvis CT 06/07/16 1048 Signed Impressions: Service Date/Time: Tuesday, June 07, 2016 11:10 - CONCLUSION: 1. Transplanted kidneys in the pelvis bilaterally. The left transplanted kidney has a grossly normal configuration. The right transplanted kidney is heavily calcified and likely nonfunctional. 2. Mild 3.2 cm abdominal aortic aneurysm. 3. Mild umbilical hernia containing only mesenteric fat. 4. Grade I anterior spondylolisthesis of L5 on S1 secondary to pars defects. 5. Minimal suspected atelectasis at the right lung base. Spencer Carlson MD Renal Ultrasound 06/07/16 0000 Signed Impressions: Service Date/Time: Tuesday, June 07, 2016 11:32 - CONCLUSION: Mild prominence to the collecting system. Patent renal artery and veins. Werner Joyner MD FACR Objective Remarks GENERAL: Well-appearing, well-nourished male. Somewhat irritated during the exam. SKIN: Warm and dry. No obvious rashes, ecchymoses, or lesions. There is a vertical surgical scar on the thorax, healed RLQ kidney transplant scar. LLQ kidney transplant scar examined and notable for serous fluid drainage, Steri- Strips in place. There is and open approximately 3-5 centimeter area in the middle; the rest of the incision is closed. AV fistula over left upper extremity. HEAD: Atraumatic. Normocephalic. EYES: Pupils equal and round. No scleral icterus. No injection or drainage. ENT: No nasal bleeding or discharge. Mucous membranes pink and moist. NECK: Trachea midline. No JVD. CARDIOVASCULAR: Regular rate and rhythm. No obvious murmurs on exam. RESPIRATORY: No accessory muscle use. Clear to auscultation. Breath sounds equal bilaterally. GASTROINTESTINAL: Abdomen soft, tender to palpation over the epigastric area. No obvious rebound tenderness. Bowel sounds normal. Hepatic and splenic margins not palpable. MUSCULOSKELETAL: Extremities without clubbing, cyanosis, or edema. No obvious deformities. NEUROLOGICAL: Awake and alert. No obvious cranial nerve deficits. Motor grossly within normal limits. Normal speech. PSYCHIATRIC: Appropriate mood and affect; insight and judgment normal. Medications and IVs Inpatient Medications Acetaminophen/ Hydrocodone Bitart (Gilmer 5-325 Mg) 2 tab Q4H PRN PO pain 7-10 Last administered on 06/08/16 11:58; Start 06/08/16 at 10:30 Aspirin (Ecotrin Ec) 81 mg DAILY PO Last administered on 06/08/16 08:50; Start 06/08/16 at 09:00 Bisacodyl (Dulcolax Supp) 10 mg ONCE ONCE RECTAL ; Start 06/07/16 at 16:00; Stop 06/07/16 at 16:01; Status DC Clonidine (Catapres) 0.1 mg Q6H PRN PO SBP>160, DBP>90; Start 06/07/16 at 16:00 Heparin Sodium (Porcine) (Heparin Inj) 5,000 units Q12H SQ Last administered on 06/08/16 12:09; Start 06/07/16 at 14:00 IV Flush (NS Flush) 2 ml BID FLUSH Last administered on 06/07/16 20:00; Start 06/07/16 at 21:00 IV Flush 2 ml 2 ml UNSCH PRN IVF FLUSH AFTER USING IV ACCESS Last administered on 06/07/16 14:05; Start 06/07/16 at 11:00; Stop 06/07/16 at 14:06; Status DC Magnesium Sulfate/ Dextrose (Magnesium Sulfate 1 Gm Premix) 100 ml @ 100 mls/ hr ONCE ONCE IV Last administered on 06/07/16 13:33; Start 06/07/16 at 12:15 ; Stop 06/07/16 at 13:14; Status DC Metoprolol Tartrate (Lopressor) 50 mg BID PO Last administered on 06/08/16 08: 50; Start 06/07/16 at 21:00 Morphine Sulfate (Morphine Inj) 2 mg Q4HR PRN IV PUSH breakthru pain Last administered on 06/08/16 08:50; Start 06/07/16 at 23:00 Mycophenolate Sodium (Myfortic Dr) 720 mg BID@06,18 PO Last administered on 06:56; Start 06/07/16 at 18:00 Naloxone HCl 0.4 mg 0.4 mg UNSCH PRN IV SEE LABEL COMMENTS; Start 06/07/16 at 14:00 Ondansetron HCl (Zofran Inj) 4 mg Q6H PRN IVP NAUSEA OR VOMITING; Start at 14:00 Potassium Phosphate (K-Phos) 500 mg ONCE ONCE PO Last administered on 23:26; Start 06/07/16 at 21:15; Stop 06/07/16 at 21:25; Status DC Prednisone (Deltasone) 5 mg DAILY PO Last administered on 06/08/16 08:50; Start 06/08/16 at 09:00 Senna/Docusate Sodium (Kitty-Colace) 2 tab BID PO Last administered on 12:08; Start 06/08/16 at 09:35 Sodium Chloride (NS 1000 ml Inj) 1,000 ml @ 100 mls/hr Q10H IV Last administered on 06/08/16 08:51; Start 06/07/16 at 15:00 Tacrolimus (Prograf) 3 mg DAILY@06,18 PO Last administered on 06/08/16 06:56; Start 06/07/16 at 18:00 Trimethoprim/ Sulfamethoxazole (Bactrim Ds 800-160 Mg) 1 tab Q12HR PO Last administered on 06/08/16 12:08; Start 06/08/16 at 09:30 Valganciclovir (Valcyte) 450 mg DAILY PO Last administered on 06/08/16 08:50; Start 06/08/16 at 09:00 (Priscilla Mora MD R1) Urinary Catheter: No (Priscilla Mora MD R1) A/P Assessment and Plan 45 yo M, hx of lupus s/p kidney transplant, having decreased PO intake, nausea, vomiting, diarrhea, concerning for ileus having symptomatic hypotension now resolved. He is admitted for further workup and monitoring. Persistent constipation with possible overflow diarrhea which warrants further workup. Discharge Planning Likely 2-3 days, pending pain control and further workup/treatment of constipation (Priscilla Mora MD R1) Attending Attestation Patient seen and examined. Case reviewed and discussed. Agree with plan of care as discussed with me and documented in the resident note. (Keshia Calvin MD) Problem List: (1) Abdominal pain Status: Acute Plan: Patient had return of abdominal pain overnight, requiring morphine IV. Pain likely related to constipation and post-operative status/adhesions, though other causes such as abscess cannot be excluded. -Percocet 5/325mg 1-2 tabs PO every 4 hours -Morphine IV breakthrough -Initiate bowel regimen if X-ray flat and upright abdomen ordered today shows no evidence of surgical or emergent obstructive process (2) MRSA (methicillin resistant staph aureus) culture positive Status: Acute Plan: Kidney transplant surgical incision site was cultured on 06/07/16 on the positive for MRSA, susceptibilities pending. -Patient is afebrile and notes no pain or symptoms related to wound -WBC has decreased this morning to lower limits of normal since being trended this hospital stay, also thrombocytopenic -Given history of kidney transplant, immunocompromise, will consult Infectious Disease team to assist in antibx regimen (Vancomycin ideal for MRSA but renally excreted) (3) Dehydration Status: Resolved Plan: BP now normal, no reflex tachycardia noted, low concern for sepsis given normal vitals and no leukocytosis. Lactic acid 1.1 on admission. Decreased PO intake x 1 week, with now resolved diarrhea on admission. Differential includes possible gastroenteritis vs GI adverse rxn to mycophenolate vs ileus. Patient received 2L bolus in the ED. -Continue NS at 100 mls/hr -Zofran prn -C Diff ordered, not likely positive given more likely diagnosis of constipation with overflow -Wound culture positive for MRSA - no history of MRSA documented in EMR or by history; we'll consult ID to assist in management of antibiotic regimen -CBC, CMP, Mg, Phos -PT consult given patient having dizziness prior to admission -Dulcolax pr x 1 - refused by patient -We'll order lactulose today, continue until patient has bowel movement (4) Hypotension Status: Acute Plan: Resolved. No hypotension since presentation to the ED with patient with systolic BP 70s in ambulatory office. Patient s/p 2L total bolus in ED, now on 100cc/hr. BP has been 140s/80s since admission. -Monitor vitals -PRN clonidine 0.1mg PO PRN SBP.160/DBP>90 (5) Status post kidney transplant Status: Chronic Plan: Left Kidney Transplant April 06, [address] Nicole. Relatively immunocompromised state on immunosuppressive meds. Kidney US showing patent renal artery and veins. GFR stable at 48. -Consult nephrology, monitoring tacrolimus level, appreciate recs -Continue transplant meds: Mycophenolate, Prednisone, Tacrolimus. Valcyte suspected for CMV prophylaxis. Bactrim to prevent PCP. (6) Atrial fibrillation Status: Chronic Plan: Chart review with no clear hx of A fib. EKG 04/06/16 with no A fib. Supposedly having A fib during dialysis in the past. Patient with history of CABG. BP can tolerate BB. -Continue Metoprolol 50 mg PO BID -Continue Aspirin -Clonidine 0.1 mg PO q6h PRN BP > 160/90 (7) Thrombocytopenia Status: Acute Plan: 87K. Stable from 06/03. Possible related to Valcyte. No active hemorrhage. -monitor CBC -Hold Heparin (8) LFT elevation Status: Acute Plan: Likely due to hepatotoxicity 2/2 medications. Patient not obese, alcoholic and recent negative hepatitis labs in January 2016. Mycophenolate not uncommon to cause LFT elevation. -Monitor LFTs (9) Nutrition, metabolism, and development symptoms Status: Acute Plan: Fluids: NS at 110 mls/hr Electrolytes: Electrolytes: Mg 3.0, Phos 1.4, repleted, monitor and replete as needed Nutrition: Clear liquid, advance as tolerated DVT Prophylaxis: Hold Heparin given thrombocytopenia, SCDs GI Prophylaxis: not indicated (Priscilla Mora MD R1) Problem Qualifiers (1) Hypotension: Qualified Code: I95.9 - Hypotension, unspecified hypotension type Priscilla Mora MD R1 Jun 08, 2016 14:23 Keshia Calvin MD Jun 10, 2016 17:39
--- NOTE | 2016-06-08 15:34 | PD.ID.CON ---
History of Present Illness Consult Requested By Primary Care Physician [facility] Diagnoses: Past Family Social History Allergies: Coded Allergies: Compazine (Verified Allergy, Severe, 06/07/16) Physical Exam Vital Signs Vital Signs Date Time Temp Pulse Resp B/P Pulse Ox O2 Delivery O2 Flow Rate FiO2 06/08/16 12:00 97.5 66 17 148/71 99 06/08/16 08:33 98.5 68 17 141/82 99 06/08/16 04:00 98.0 80 20 150/82 98 06/08/16 00:00 97.8 78 20 144/76 98 06/07/16 20:05 79 06/07/16 20:00 98.5 76 20 151/75 99 06/07/16 16:54 65 18 165/71 98 Room Air Physical Exam GENERAL: This is a well-nourished, well-developed patient, in no apparent distress. SKIN: No rashes, ecchymoses or lesions. Cool and dry. HEAD: Atraumatic. Normocephalic. No temporal or scalp tenderness. EYES: Pupils equal round and reactive. Extraocular motions intact. No scleral icterus. No injection or drainage. ENT: Nose without bleeding, purulent drainage or septal hematoma. Throat without erythema, tonsillar hypertrophy or exudate. Uvula midline. Airway patent. NECK: Trachea midline. No JVD or lymphadenopathy. Supple, nontender, no meningeal signs. CARDIOVASCULAR: Regular rate and rhythm without murmurs, gallops, or rubs. RESPIRATORY: Clear to auscultation. Breath sounds equal bilaterally. No wheezes , rales, or rhonchi. GASTROINTESTINAL: Abdomen soft, non-tender, nondistended. No hepato-splenomegaly , or palpable masses. No guarding. MUSCULOSKELETAL: Extremities without clubbing, cyanosis, or edema. No joint tenderness, effusion, or edema noted. No calf tenderness. Negative Homans sign bilaterally. NEUROLOGICAL: Awake and alert. Cranial nerves II through XII intact. Motor and sensory grossly within normal limits. Five out of 5 muscle strength in all muscle groups. Normal speech. Laboratory Laboratory Tests Test 06/08/16 04:53 White Blood Count 4.0 Red Blood Count 4.35 Hemoglobin 12.4 Hematocrit 37.8 Mean Corpuscular Volume 86.9 Mean Corpuscular Hemoglobin 28.5 Mean Corpuscular Hemoglobin 32.7 Concent Red Cell Distribution Width 16.6 Platelet Count 71 Mean Platelet Volume 11.0 Neutrophils (%) (Auto) 79.1 Lymphocytes (%) (Auto) 7.7 Monocytes (%) (Auto) 11.7 Eosinophils (%) (Auto) 0.8 Basophils (%) (Auto) 0.7 Neutrophils # (Auto) 3.2 Lymphocytes # (Auto) 0.3 Monocytes # (Auto) 0.5 Eosinophils # (Auto) 0.0 Basophils # (Auto) 0.0 CBC Comment AUTO DIFF Differential Comment AUTO DIFF CONFIRMED Platelet Estimate LOW Platelet Morphology Comment NORMAL Ovalocytes 2+ Acanthocytes OCC Sodium Level 138 Potassium Level 4.4 Chloride Level 105 Carbon Dioxide Level 22.3 Anion Gap 11 Blood Urea Nitrogen 21 Creatinine 1.15 Estimat Glomerular Filtration 68 Rate Random Glucose 90 Calcium Level 9.3 Phosphorus Level 1.1 Magnesium Level 2.4 Tacrolimus (Prograf) Level 6.6 Date/Time Procedure Status Source Growth 06/07/16 18:15 Aerobic Blood Culture - Preliminary Resulted Blood Peripheral NO GROWTH IN 1 DAY 06/07/16 18:15 Anaerobic Blood Culture - Preliminary Resulted Blood Peripheral NO GROWTH IN 1 DAY 06/07/16 17:30 Gram Stain - Final Resulted Wound Abdomen 06/07/16 17:30 Wound Culture - Preliminary Resulted S. Aureus Mrsa Result Diagram: 06/08/16 0453 06/08/16 0453 Qing Walters MD Jun 08, 2016 15:34
--- NOTE | 2016-06-08 15:45 | PD.ID.CON ---
History of Present Illness Service ID Consult Requested By Dr.Leslie Mora Reason for Consult Evaluation and Mment of MRSA surgical site infection in a patient with renal transplant. Primary Care Physician [facility] Diagnoses: History of Present Illness is a 45 y/o CM with PMHx of Lupus nephropathy s.p most recently cadaveric renal transplant on 04/06/16 for ? left kidney. He was sent to the ED by for hypotension during an office visit. He reported tightness in epigastric region. He attempted to use miralax thinking this was constipation related with no relief. Home health RN gave him enema and he has normal BM. After the enema patient continued to have small clear-brownish watery stool. No bloody but foul smelling stools. Patient went to see Dr. Nicole, who saw that patient was hypotensive to systolic 70s; sent patient to the ED. Patient had been experiencing dizziness, fatigue, weakness, decreased appetite. He reported decreased appetite, nausea and vomiting. Patient is on immune suppressant medication. He has noticed no change in urine output. He reports his incision for the kidney transplant in [facility] was infected in past and multiple cultures have been obtained. Patient had vito removed last week and now incision covered with Steristrips. Patient reports he has been doing local wound care. He reports this is the first time that MRSA infection has been reported to him. ID consulted for evaluation and management of MRSA surgical site infection. Review of Systems ROS Limitations: Poor Historian Constitutional: COMPLAINS OF: Fatigue, DENIES: Diaphoretic episodes, Fever, Weight gain, Weight loss, Chills, Dizziness, Change in appetite, Night Sweats Endocrine: DENIES: Heat/cold intolerance, Polydipsia, Polyuria, Polyphagia Ears, nose, mouth, throat: DENIES: Tinnitus, Hearing loss, Vertigo, Nasal discharge, Oral lesions, Throat pain, Hoarseness, Ear Pain, Running Nose, Epistaxis, Sinus Pain, Toothache, Odynophagia Respiratory: DENIES: Apneas, Cough, Snoring, Wheezing, Hemoptysis, Sputum production, Shortness of breath Cardiovascular: DENIES: Chest pain, Palpitations, Syncope, Dyspnea on Exertion , PND, Lower Extremity Edema, Orthopnea, Claudication Gastrointestinal: COMPLAINS OF: Abdominal pain, Nausea, Vomiting, DENIES: Black stools, Bloody stools, Constipation, Diarrhea, Difficulty Swallowing, Anorexia Genitourinary: DENIES: Sexual dysfunction, Urinary frequency, Urinary incontinence, Urgency, Hematuria, Dysuria, Nocturia, Penile Discharge, Testicular Pain, Testicular Swelling Musculoskeletal: DENIES: Joint pain, Muscle aches, Stiffness, Joint Swelling, Back pain, Neck pain Integumentary: DENIES: Abnormal pigmentation, Nail changes, Pruritus, Rash Hematologic/lymphatic: DENIES: Bruising, Lymphadenopathy Immunologic/allergic: DENIES: Eczema, Urticaria Neurologic: DENIES: Abnormal gait, Headache, Localized weakness, Paresthesias, Seizures, Speech Problems, Tremor, Poor Balance Psychiatric: DENIES: Anxiety, Confusion, Mood changes, Depression, Hallucinations, Agitation, Suicidal Ideation, Homicidal Ideation, Delusions Except as stated in HPI: all other systems reviewed are Neg Past Family Social History Allergies: Coded Allergies: Compazine (Verified Allergy, Severe, 06/07/16) Past Medical History A Fib Lupus Kidney transplant March 2016 Past Surgical History Kidney transplant x 2 (1997 and 03/2016) CABG x 2 (2006 - vessel and 05/2015) Reported Medications Reported Meds & Active Scripts Active Reported Aspirin 81 Mg Tabdr 81 Mg PO DAILY Myfortic (Mycophenolate Sodium) 180 Mg Tab 720 Mg PO BID Bactrim DS (Sulfamethoxazole-Trimethoprim) 800-160 Mg Tab 1 Tab PO Tacrolimus 1 Mg Cap 3 Mg PO Q12H Metoprolol Tartrate 25 Mg Tab 50 Mg PO BID Valcyte (Valganciclovir) 450 Mg Tab 450 Mg PO DAILY Deltasone (Prednisone) 20 Mg Tab 5 Mg PO DAILY Active Ordered Medications Current Medications Medications (Trade) Dose Ordered Sig/Kaylan Route Start Time Stop Time Status Last Admin (NS Flush) 2 ml UNSCH PRN FLUSH 06/07/16 14:00 06/07/16 23:26 (NS Flush) 2 ml BID FLUSH 06/07/16 21:00 06/07/16 20:00 (Zofran Inj) 4 mg Q6H PRN IVP 06/07/16 14:00 (Heparin Inj) 5,000 units Q12H SQ 06/07/16 14:00 Hold 06/08/16 12:09 Naloxone HCl 0.4 mg 0.4 mg UNSCH PRN IV 06/07/16 14:00 (NS 1000 ml Inj) 1,000 ml @ 100 mls/hr Q10H IV 06/07/16 15:00 06/08/16 08:51 (Ecotrin Ec) 81 mg DAILY PO 06/08/16 09:00 06/08/16 08:50 (Lopressor) 50 mg BID PO 06/07/16 21:00 06/08/16 08:50 (Myfortic Dr) 720 mg BID@,18 PO 06/07/16 18:00 06/08/16 06:56 (Deltasone) 5 mg DAILY PO 06/08/16 09:00 06/08/16 08:50 (Prograf) 3 mg DAILY@,18 PO 06/07/16 18:00 06/08/16 06:56 (Valcyte) 450 mg DAILY PO 06/08/16 09:00 06/08/16 08:50 (Catapres) 0.1 mg Q6H PRN PO 06/07/16 16:00 (Morphine Inj) 2 mg Q4HR PRN IV PUSH 06/07/16 23:00 06/08/16 14:28 (Kitty-Colace) 2 tab BID PO 06/08/16 09:35 06/08/16 12:08 ([place] 5-325 Mg) 1 tab Q4H PRN PO 06/08/16 10:30 ([place] 5-325 Mg) 2 tab Q4H PRN PO 06/08/16 10:30 06/08/16 11:58 (Lactulose Liq) 30 ml QID PO 06/08/16 18:00 (Bactrim Ds 800-160 Mg) 1 tab MoWeFr@09 PO 06/09/16 09:00 (Zyvox) 600 mg Q12HR PO 06/08/16 21:00 Family History reviewed dad: age 87, healthy? mom: age 70s, healthy? Social History Lives in [place] but staying in [facility] with friend since March to make appts post transplant No tobacco, alcohol or drugs. Physical Exam Vital Signs Vital Signs Date Time Temp Pulse Resp B/P Pulse Ox O2 Delivery O2 Flow Rate FiO2 06/08/16 12:00 97.5 66 17 148/71 99 06/08/16 08:33 98.5 68 17 141/82 99 06/08/16 04:00 98.0 80 20 150/82 98 06/08/16 00:00 97.8 78 20 144/76 98 06/07/16 20:05 79 06/07/16 20:00 98.5 76 20 151/75 99 06/07/16 16:54 65 18 165/71 98 Room Air Physical Exam GENERAL: This is a well-nourished, well-developed patient, in no apparent distress. SKIN: No rashes, ecchymoses or lesions. Cool and dry. HEAD: Atraumatic. Normocephalic. No temporal or scalp tenderness. EYES: Pupils equal round and reactive. Extraocular motions intact. No scleral icterus. No injection or drainage. ENT: Nose without bleeding, purulent drainage or septal hematoma. Throat without erythema, tonsillar hypertrophy or exudate. Uvula midline. Airway patent. NECK: Trachea midline. Supple, nontender, no meningeal signs. CARDIOVASCULAR: HS audible. RESPIRATORY: Clear to auscultation. Breath sounds equal bilaterally. No wheezes , rales, or rhonchi. GASTROINTESTINAL: Abdomen soft, diffuse tenderness epigastric region. Linear abdominal wound in LLQ, the lower aspect of it with steristrips. Upper aspect of wound with opening noted. Yellow discharge copious, with no surrounding erythema, of note patient was on Bactrim [employer], air bubbles visible through the discharge. No foul smell noted. Fistula site ok. MUSCULOSKELETAL: Extremities without clubbing, cyanosis, or edema. No joint tenderness, effusion, or edema noted. No calf tenderness. Negative Homans sign bilaterally. NEUROLOGICAL: Awake and alert. Grossly non focal Psych: cooperative IV line sites with no e.o infection. Laboratory Laboratory Tests Test 06/08/16 04:53 White Blood Count 4.0 Red Blood Count 4.35 Hemoglobin 12.4 Hematocrit 37.8 Mean Corpuscular Volume 86.9 Mean Corpuscular Hemoglobin 28.5 Mean Corpuscular Hemoglobin 32.7 Concent Red Cell Distribution Width 16.6 Platelet Count 71 Mean Platelet Volume 11.0 Neutrophils (%) (Auto) 79.1 Lymphocytes (%) (Auto) 7.7 Monocytes (%) (Auto) 11.7 Eosinophils (%) (Auto) 0.8 Basophils (%) (Auto) 0.7 Neutrophils # (Auto) 3.2 Lymphocytes # (Auto) 0.3 Monocytes # (Auto) 0.5 Eosinophils # (Auto) 0.0 Basophils # (Auto) 0.0 CBC Comment AUTO DIFF Differential Comment AUTO DIFF CONFIRMED Platelet Estimate LOW Platelet Morphology Comment NORMAL Ovalocytes 2+ Acanthocytes OCC Sodium Level 138 Potassium Level 4.4 Chloride Level 105 Carbon Dioxide Level 22.3 Anion Gap 11 Blood Urea Nitrogen 21 Creatinine 1.15 Estimat Glomerular Filtration 68 Rate Random Glucose 90 Calcium Level 9.3 Phosphorus Level 1.1 Magnesium Level 2.4 Tacrolimus (Prograf) Level 6.6 Date/Time Procedure Status Source Growth 06/07/16 18:15 Aerobic Blood Culture - Preliminary Resulted Blood Peripheral NO GROWTH IN 1 DAY 06/07/16 18:15 Anaerobic Blood Culture - Preliminary Resulted Blood Peripheral NO GROWTH IN 1 DAY 06/07/16 17:30 Gram Stain - Final Resulted Wound Abdomen 06/07/16 17:30 Wound Culture - Preliminary Resulted S. Aureus Mrsa Result Diagram: 06/08/16 0453 06/08/16 0453 Imaging Last Impressions Abdomen/Pelvis CT 06/07/16 1048 Signed Impressions: Service Date/Time: Tuesday, June 07, 2016 11:10 - CONCLUSION: 1. Transplanted kidneys in the pelvis bilaterally. The left transplanted kidney has a grossly normal configuration. The right transplanted kidney is heavily calcified and likely nonfunctional. 2. Mild 3.2 cm abdominal aortic aneurysm. 3. Mild umbilical hernia containing only mesenteric fat. 4. Grade I anterior spondylolisthesis of L5 on S1 secondary to pars defects. 5. Minimal suspected atelectasis at the right lung base. Spencer Carlson MD Renal Ultrasound 06/07/16 0000 Signed Impressions: Service Date/Time: Tuesday, June 07, 2016 11:32 - CONCLUSION: Mild prominence to the collecting system. Patent renal artery and veins. Werner Joyner MD FACR Assessment and Plan Assessment and Plan Left renal transplant surgical site with MRSA infection. Bilateral renal transplant status. h/o Lupus nephritis Lupus Immune compromised host. Acute renal failure: prerenal (diarrhea, decreased oral intake) or bactrim. Recs: Continue Zyvox oral. Adjust bactrim daily to M,W,F Follow cultures Follow clinically Consult patient known to him to assess wound clinically if worse or better compared to office visits. d/w Dr.Leslie Mora, pt Qing Walters MD Jun 08, 2016 15:45
[2016-06-08] MEDS: LACTULOSE SYRUP 20 GM/30 ML CUP PO SCH ×2 (16:23→20:26)
[2016-06-08] MEDS: POTASSIUM PHOSPHATE MONOBASIC 500 MG TAB PO SCH (16:24)
[2016-06-08] MEDS ORDERED: POTASSIUM PHOSPHATE INJ 30 MMOL in SODIUM CHLOR 0.9% 250 ML INJ 250 ML IV ONE (18:00)
[2016-06-08] MEDS: PANTOPRAZOLE SOD 20 MG DELAYED RELEASE TAB PO SCH (18:49)
--- NOTE | 2016-06-08 18:53 | HHI.NPPN ---
Subjective History of Present Illness 45 year old with abdominal pain, s/p kidney transplant constipation/diarrhea/ constipation Objective Data Data 06/07/16 06/08/16 19:00 07:00 Intake Total 838 ml Output Total 1300 ml Balance -462 ml Intake Oral 720 ml IV Total 118 ml Output Urine Total 1300 ml # Bowel Movements 0 Vital Signs Date Time Temp Pulse Resp B/P Pulse Ox O2 Delivery O2 Flow Rate FiO2 06/08/16 12:00 97.5 66 17 148/71 99 06/08/16 08:33 98.5 68 17 141/82 99 06/08/16 04:00 98.0 80 20 150/82 98 06/08/16 00:00 97.8 78 20 144/76 98 06/07/16 20:05 79 06/07/16 20:00 98.5 76 20 151/75 99 -: 06/08/16 0453 06/08/16 0453 Assessment/Plan Problem List: (1) Kidney transplant status, cadaveric Plan: Kidney functions better has ileus due to low PO4 Replacement ordered try Sorbitol Tacrolimus level acceptable continue with Tacrolimus 3 mg q 12, Prednisone 5 mg and Myfortic 720 (2) Hypotension Plan: Corrected by giving him IV fluids (3) Dehydration Plan: On IV hydration (4) MRSA (methicillin resistant staph aureus) culture positive Plan: in wound started on Zyvox Problem Qualifiers (1) Hypotension: Qualified Code: I95.9 - Hypotension, unspecified hypotension type Sylvester Romano MD Jun 08, 2016 18:53
[2016-06-08 20:00] VITALS: BP 143/86; PULSE 66; RESP 20; TEMP 97.4; O2SAT 100
[2016-06-08] MEDS: LINEZOLID 600 MG TAB PO SCH (20:26)
[2016-06-08] MEDS: SORBITOL 70% SOLN 30 ML CUP PO SCH (22:39)
[2016-06-08 23:06] LABS: MAGNESIUM 2.3 MG/DL (1.5-2.5)
[2016-06-09] VITALS: BP 138/62; PULSE 68; RESP 20; TEMP 97; O2SAT 98
[2016-06-09 04:00] VITALS: BP 122/72; PULSE 70; RESP 20; TEMP 96.6; O2SAT 96
[2016-06-09] MEDS: POTASSIUM PHOSPHATE MONOBASIC 500 MG TAB PO SCH ×2 (05:04→18:02)
[2016-06-09] MEDS: MYCOPHENOLIC ACID (AS MYCOPHENOLATE SODIUM) 180 MG DR TAB PO SCH ×2 (05:04→18:03)
[2016-06-09] MEDS: TACROLIMUS 1 MG CAP PO SCH ×2 (05:04→18:01)
[2016-06-09 05:05] LABS: HEMATOCRIT 39.5 % (39.0-51.0); MEAN CELL VOLUME 87.2 FL (80.0-100.0); MEAN CORPUSCULAR HEMOGLOBIN 28.2 PG (27.0-34.0); MEAN CORPUSCULAR HGB CONC 32.3 % (32.0-36.0); PLATELET COUNT 79 TH/MM3 (150-450); RED BLOOD COUNT 4.53 MIL/MM3 (4.50-5.90); RED CELL DISTRIBUTION WIDTH 16.5 % (11.6-17.2); WHITE BLOOD COUNT 4.2 TH/MM3 (4.0-11.0)
[2016-06-09] MEDS: ACETAMINOPHEN/HYDROcodone 325 MG/5 MG TAB PO PRN ×2 (05:05→18:03)
[2016-06-09 05:10] LABS: HEMO FLAGS AUTO DIFF
[2016-06-09 07:55] LABS: ATYPICAL LYMPHOCYTES 10 % (0-0); BANDS 10 % (0-6); MYELOCYTES 1 % (0-0); NEUTROPHIL # MANUAL DIFF 3.3 TH/MM3 (1.8-7.7); OVALOCYTES 1+ (NORMAL); PLATELET ESTIMATE SMEAR LOW (NORMAL); PLATELET MORPHOLOGY NORMAL (NORMAL); POLYS (SEG NEUTROPHILS) 67 % (16-70); SCAN/DIFF FINAL DIFF MANUAL; TEARDROP RBCS 1+ (NORMAL); WBC DIFF SAMPLE 100
[2016-06-09 08:07] VITALS: BP 175/82; PULSE 58; RESP 18; TEMP 96.3; O2SAT 99
[2016-06-09] MEDS: SODIUM CHLORIDE 0.9% FLUSH 5 ML FLUSH FLUSH SCH ×2 (09:00→21:00)
--- NOTE | 2016-06-09 09:17 | HHI.FPPN ---
Subjective Remarks Patient still feeling "not good". Reports persistent cramping abdominal pain that comes and goes. Located around center of his abdomen. More comfortable since starting [place] 10, 2 tabs q 4 hrs. He still has no appetite, and per RN has been only drinking tea. He reports several episodes of liquid stool / diarrhea. No nausea, vomiting, or fevers. Tolerating lactulose well. He has been ambulating but only minimally. MRSA from wound on LLQ. Per ID rec continuing Zyvox PO and bactrim MWF. ( Agustin Foote MD R2) Objective Vitals Vital Signs Date Time Temp Pulse Resp B/P Pulse Ox O2 Delivery O2 Flow Rate FiO2 06/09/16 08:07 96.3 58 18 175/82 99 06/09/16 04:00 96.6 70 20 122/72 96 06/09/16 00:00 97.0 68 20 138/62 98 06/08/16 20:32 18 06/08/16 20:00 97.4 66 20 143/86 100 06/08/16 12:00 97.5 66 17 148/71 99 I/O 06/08/16 06/08/16 06/08/16 06/09/16 06/09/16 06/09/16 07:00 15:00 23:00 07:00 15:00 23:00 Intake Total 480 ml 120 ml 720 ml 480 ml Output Total 750 ml 500 ml 1300 ml 1250 ml Balance -270 ml -380 ml -580 ml -770 ml Intake Oral 480 ml 120 ml 720 ml 480 ml Output Urine Total 750 ml 500 ml 1300 ml 1250 ml # Bowel Movements 0 0 0 0 (Agustin Foote MD R2) Result Diagram: 06/09/16 0341 06/08/16 0453 Objective Remarks GENERAL: Well-appearing, well-nourished male. Somewhat irritated during the exam. SKIN: Warm and dry. No obvious rashes, ecchymoses, or lesions. There is a vertical surgical scar on the thorax, healed RLQ kidney transplant scar. LLQ kidney transplant scar examined and notable for serous fluid drainage, Steri- Strips in place. There is and open approximately 3-5 centimeter area in the middle; the rest of the incision is closed. AV fistula over left upper extremity. HEAD: Atraumatic. Normocephalic. EYES: Pupils equal and round. No scleral icterus. No injection or drainage. ENT: No nasal bleeding or discharge. Mucous membranes pink and moist. NECK: Trachea midline. No JVD. CARDIOVASCULAR: Regular rate and rhythm. No obvious murmurs on exam. RESPIRATORY: No accessory muscle use. Clear to auscultation. Breath sounds equal bilaterally. GASTROINTESTINAL: Abdomen soft, tender to palpation over the epigastric area. No obvious rebound tenderness. Bowel sounds normal. Hepatic and splenic margins not palpable. MUSCULOSKELETAL: Extremities without clubbing, cyanosis, or edema. No obvious deformities. NEUROLOGICAL: Awake and alert. No obvious cranial nerve deficits. Motor grossly within normal limits. Normal speech. PSYCHIATRIC: Appropriate mood and affect; insight and judgment normal. (Agustin Foote MD R2) A/P Assessment and Plan 45 yo M, hx of lupus s/p kidney transplant, having decreased PO intake, nausea, vomiting, diarrhea, concerning for ileus having symptomatic hypotension now resolved. He is admitted for further workup and monitoring. Persistent constipation with possible overflow diarrhea which warrants further workup. Discharge Planning Likely 2-3 days, pending pain control and further workup/treatment of constipation (Agustin Foote MD R2) Attending Attestation Patient seen and examined. Case reviewed and discussed. Agree with plan of care as discussed with me and documented in the resident note. (Keshia Calvin MD) Problem List: (1) Abdominal pain Status: Acute Plan: Pain better controlled. Still no formed BM. Pain likely related to constipation and obstruction/ileus. Low PO43 may be contributing, as well as post operative adhesions. -Percocet 5/325mg 1-2 tabs PO every 4 hours -Morphine IV breakthrough -Xray abdomen showed "air in throughout the small and large bowel likely related to ileus." -Rec ambulating as much as possible, chewing gum, and continue with current bowel regimen: -Sorbitol -Lactulose -Pericolace 2 tabs BID -Miralax 17 gm qd -Advance diet slowly (clear liquid 06/09/16). If not improving may need NG tube placement, surgical consult, and/or CT with oral contrast. (2) MRSA (methicillin resistant staph aureus) culture positive Status: Acute Plan: Kidney transplant surgical incision site was cultured on 06/07/16 on the positive for MRSA, susceptibilities pending. -Patient is afebrile and notes no pain or symptoms related to wound -WBC has decreased this morning to lower limits of normal since being trended this hospital stay, also thrombocytopenic. -Given history of kidney transplant, immunocompromise, will consult Infectious Disease team to assist in antibx regimen: -Bactrim MWF and Zyvox 600 mg q 12 hr. (3) Dehydration Status: Resolved Plan: BP now normal, no reflex tachycardia noted, low concern for sepsis given normal vitals and no leukocytosis. Lactic acid 1.1 on admission. Decreased PO intake x 1 week, with now resolved diarrhea on admission. Differential includes possible gastroenteritis vs GI adverse rxn to mycophenolate vs ileus. Patient received 2L bolus in the ED. -Continue NS at 100 mls/hr -Zofran prn -C Diff ordered, not likely positive given more likely diagnosis of constipation with overflow -Wound culture positive for MRSA - no history of MRSA documented in EMR or by history; we'll consult ID to assist in management of antibiotic regimen -CBC, CMP, Mg, Phos -PT consult given patient having dizziness prior to admission -Dulcolax pr x 1 - refused by patient -We'll order lactulose today, continue until patient has bowel movement (4) Hypotension Status: Acute Plan: Resolved. No hypotension since presentation to the ED with patient with systolic BP 70s in ambulatory office. Patient s/p 2L total bolus in ED, now on 100cc/hr. BP has been 140s/80s since admission. -Monitor vitals -PRN clonidine 0.1mg PO PRN SBP.160/DBP>90 (5) Status post kidney transplant Status: Chronic Plan: Left Kidney Transplant April 06, [address] Nicole. Relatively immunocompromised state on immunosuppressive meds. Kidney US showing patent renal artery and veins. GFR stable at 48. -Consult nephrology, monitoring tacrolimus level, appreciate recs -Continue transplant meds: Mycophenolate, Prednisone, Tacrolimus. Valcyte suspected for CMV prophylaxis. Bactrim to prevent PCP. (6) Atrial fibrillation Status: Chronic Plan: Chart review with no clear hx of A fib. EKG 04/06/16 with no A fib. Supposedly having A fib during dialysis in the past. Patient with history of CABG. BP can tolerate BB. -Continue Metoprolol 50 mg PO BID -Continue Aspirin -Clonidine 0.1 mg PO q6h PRN BP > 160/90 (7) Thrombocytopenia Status: Acute Plan: 87K. Stable from 06/03. Possible related to Valcyte. No active hemorrhage. -monitor CBC -Hold Heparin (8) LFT elevation Status: Acute Plan: Likely due to hepatotoxicity 2/2 medications. Patient not obese, alcoholic and recent negative hepatitis labs in January 2016. Mycophenolate not uncommon to cause LFT elevation. -Monitor LFTs (9) Nutrition, metabolism, and development symptoms Status: Acute Plan: Fluids: NS at 110 mls/hr Electrolytes: Electrolytes: Mg 3.0, Phos 1.4, repleted, monitor and replete as needed Nutrition: Clear liquid, advance as tolerated DVT Prophylaxis: Hold Heparin given thrombocytopenia, SCDs GI Prophylaxis: not indicated (Agustin Foote MD R2) Problem Qualifiers (1) Hypotension: Qualified Code: I95.9 - Hypotension, unspecified hypotension type Agustin Foote MD R2 Jun 09, 2016 09:17 Keshia Calvin MD Jun 10, 2016 17:39
[2016-06-09] MEDS: ASPIRIN EC 81 MG TABEC PO SCH (09:46)
[2016-06-09] MEDS: predniSONE 5 MG TAB PO SCH (09:46)
[2016-06-09] MEDS: METOPROLOL TARTRATE 25 MG TAB PO SCH ×2 (09:46→21:16)
[2016-06-09] MEDS: LACTULOSE SYRUP 20 GM/30 ML CUP PO SCH ×4 (09:46→21:00)
[2016-06-09] MEDS: LINEZOLID 600 MG TAB PO SCH (09:46)
[2016-06-09] MEDS: SULFAMETHOXAZOLE-TRIMETHOPRIM DS 800-160 MG TAB PO SCH (09:46)
[2016-06-09] MEDS: MORPHINE SULFATE 4 MG/ML INJ IV PUSH PRN ×2 (09:46→21:15)
[2016-06-09] MEDS: PANTOPRAZOLE SOD 20 MG DELAYED RELEASE TAB PO SCH (09:46)
[2016-06-09] MEDS: DOCUSATE SODIUM 50 MG/SENNA 8.6 MG TAB PO SCH ×2 (09:46→21:00)
[2016-06-09] MEDS: SODIUM CHLOR 0.9% 1000 ML INJ 1,000 ML IV SCH ×2 (09:47→18:04)
--- NOTE | 2016-06-09 11:52 | HHI.PR ---
Subjective Remarks States he slept better last night than other nights, was more relaxed; No c/o regarding the wound, tolerated full liquid diet, had small amount BM Objective Vital Signs Date Time Temp Pulse Resp B/P Pulse Ox O2 Delivery O2 Flow Rate FiO2 06/09/16 08:07 96.3 58 18 175/82 99 06/09/16 04:00 96.6 70 20 122/72 96 06/09/16 00:00 97.0 68 20 138/62 98 06/08/16 20:32 18 06/08/16 20:00 97.4 66 20 143/86 100 06/08/16 12:00 97.5 66 17 148/71 99 I/O 06/08/16 06/08/16 06/08/16 06/09/16 06/09/16 06/09/16 07:00 15:00 23:00 07:00 15:00 23:00 Intake Total 480 ml 120 ml 720 ml 480 ml Output Total 750 ml 500 ml 1300 ml 1250 ml Balance -270 ml -380 ml -580 ml -770 ml Intake Oral 480 ml 120 ml 720 ml 480 ml Output Urine Total 750 ml 500 ml 1300 ml 1250 ml # Bowel Movements 0 0 0 0 Wound examined; Binder in place, procedure repeated similarly as yesterday's dressing change; -old dressing removed and examined -old packing removed -skin surface swabbed with alcohol or betadine -(wound irrigated with NS, inside surface of wound lightly debrided with cotton tip applicator) X2 -repacked under sterile conditions with 1/4 inch tape gauze, leave tip overhang outside of wound -re dressed inside wound appears healthy with good granulation tissue, good perfusion, no odor, no purulence, no necrotic tissue Result Diagram: 06/09/16 0341 06/08/16 0453 Assessment and Plan Assessment and Plan Wound is healing well, non-infected; continue daily wound care as outlined Myles Nicole MD Jun 09, 2016 11:52
[2016-06-09 12:00] VITALS: BP 144/73; PULSE 63; RESP 12; TEMP 96.5; O2SAT 100
--- NOTE | 2016-06-09 14:32 | HHI.NPPN ---
Subjective History of Present Illness 45 year old with abdominal pain, s/p kidney transplant constipation/diarrhea/ constipation Objective Data Data 06/08/16 06/09/16 19:00 07:00 Intake Total 120 ml 1200 ml Output Total 500 ml 2550 ml Balance -380 ml -1350 ml Intake Oral 120 ml 1200 ml Output Urine Total 500 ml 2550 ml # Bowel Movements 0 0 Vital Signs Date Time Temp Pulse Resp B/P Pulse Ox O2 Delivery O2 Flow Rate FiO2 06/09/16 12:00 96.5 63 12 144/73 100 06/09/16 08:07 96.3 58 18 175/82 99 06/09/16 04:00 96.6 70 20 122/72 96 06/09/16 00:00 97.0 68 20 138/62 98 06/08/16 20:32 18 06/08/16 20:00 97.4 66 20 143/86 100 -: 06/09/16 0341 06/08/16 0453 Assessment/Plan Problem List: (1) Kidney transplant status, cadaveric Plan: Kidney functions stable BM improved Tacrolimus level drawn too early continue with Tacrolimus 3 mg q 12, Prednisone 5 mg and Myfortic 720 (2) Hypotension Plan: Corrected by giving him IV fluids (3) Dehydration Plan: On IV hydration (4) MRSA (methicillin resistant staph aureus) culture positive Plan: in wound started on Zyvox Problem Qualifiers (1) Hypotension: Qualified Code: I95.9 - Hypotension, unspecified hypotension type Sylvester Romano MD Jun 09, 2016 14:32
[2016-06-09 16:00] VITALS: BP 147/70; PULSE 64; RESP 17; TEMP 97.3; O2SAT 100
--- NOTE | 2016-06-09 19:20 | HHI.PR ---
Addendum to Inpatient Note Addendum Reason: Additional Documentation Additional Information Chart reviewed note reviewed. Noted yellowish discharge on my exam yday. Would recommend followin. DC Zyvox 2. Oral Doxy 100 mg po bid for 7 days 3. Continue prophylaxis post transplant per and . 4. Continue wound care. Ok to DC home from my standpoint. Will sign off please call back if any change in clinical condition or questions. Qing Walters MD Jun 09, 2016 19:20
[2016-06-09 20:00] VITALS: BP 112/58; PULSE 50; PULSE 64; RESP 19; TEMP 97.2; O2SAT 96
[2016-06-09] MEDS: SORBITOL 70% SOLN 30 ML CUP PO SCH (21:00)
[2016-06-09] MEDS: DOXYCYCLINE HYCLATE 100 MG CAP PO SCH (21:16)
[2016-06-09 23:39] LABS: BICARBONATE 20.9 MEQ/L (21.0-32.0); POTASSIUM 4.6 MEQ/L (3.5-5.1)
[2016-06-10] VITALS (8 sets, daily range): BP systolic 130–178; BP diastolic 64–90; PULSE 59–72; RESP 18–21; TEMP 96.2–98.3; O2SAT 98–100
[2016-06-10] MEDS: SODIUM CHLOR 0.9% 1000 ML INJ 1,000 ML IV SCH ×2 (03:25→12:04)
[2016-06-10] MEDS: POTASSIUM PHOSPHATE MONOBASIC 500 MG TAB PO SCH (03:25)
[2016-06-10] MEDS: ACETAMINOPHEN/HYDROcodone 325 MG/5 MG TAB PO PRN ×3 (04:26→15:15)
[2016-06-10 05:34] LABS: AUTOMATED NEUTROPHIL # 3.5 TH/MM3 (1.8-7.7); BASOPHIL % 0.7 % (0.0-2.0); EOSINOPHIL # 0.1 TH/MM3 (0-0.4); EOSINOPHIL % 1.1 % (0.0-4.0); HEMATOCRIT 38.5 % (39.0-51.0); LYMPH % 25.8 % (9.0-44.0); LYMPHOCYTE # 1.4 TH/MM3 (1.0-4.8); MEAN CELL VOLUME 87.8 FL (80.0-100.0); MEAN CORPUSCULAR HEMOGLOBIN 27.8 PG (27.0-34.0); MEAN CORPUSCULAR HGB CONC 31.7 % (32.0-36.0); MONO % 8.7 % (0.0-8.0); NEUT % 63.7 % (16.0-70.0); PLATELET COUNT 90 TH/MM3 (150-450); RED BLOOD COUNT 4.39 MIL/MM3 (4.50-5.90); RED CELL DISTRIBUTION WIDTH 16.9 % (11.6-17.2); WHITE BLOOD COUNT 5.5 TH/MM3 (4.0-11.0)
[2016-06-10 05:37] LABS: HEMO FLAGS AUTO DIFF
[2016-06-10 06:10] LABS: BICARBONATE 20.3 MEQ/L (21.0-32.0); POTASSIUM 4.6 MEQ/L (3.5-5.1)
[2016-06-10] MEDS: MYCOPHENOLIC ACID (AS MYCOPHENOLATE SODIUM) 180 MG DR TAB PO SCH ×2 (06:20→17:09)
[2016-06-10] MEDS: TACROLIMUS 1 MG CAP PO SCH ×2 (06:20→17:09)
[2016-06-10 07:00] LABS: OVALOCYTES 1+ (NORMAL); PLATELET ESTIMATE SMEAR LOW (NORMAL); PLATELET MORPHOLOGY NORMAL (NORMAL); SCAN/DIFF AUTO DIFF CONFIRMED
[2016-06-10] MEDS: PANTOPRAZOLE SOD 20 MG DELAYED RELEASE TAB PO SCH (08:26)
[2016-06-10] MEDS: ASPIRIN EC 81 MG TABEC PO SCH (08:26)
[2016-06-10] MEDS: predniSONE 5 MG TAB PO SCH (08:26)
[2016-06-10] MEDS: DOXYCYCLINE HYCLATE 100 MG CAP PO SCH ×2 (08:26→21:15)
[2016-06-10] MEDS: METOPROLOL TARTRATE 25 MG TAB PO SCH ×2 (08:26→21:15)
[2016-06-10] MEDS: DOCUSATE SODIUM 50 MG/SENNA 8.6 MG TAB PO SCH ×2 (08:27→21:00)
[2016-06-10] MEDS: LACTULOSE SYRUP 20 GM/30 ML CUP PO SCH ×4 (08:27→21:00)
[2016-06-10] MEDS: SODIUM CHLORIDE 0.9% FLUSH 5 ML FLUSH FLUSH SCH ×2 (08:27→21:00)
[2016-06-10] MEDS ORDERED: POTASSIUM PHOSPHATE INJ 30 MMOL in SODIUM CHLOR 0.9% 250 ML INJ 250 ML IV ONE (09:00)
--- NOTE | 2016-06-10 10:12 | HHI.FPPN ---
Subjective Remarks Patient was seen and evaluated this morning. At time of evaluation, patient reports very recent nausea, vomiting, and liquid stools. He has had this issue since last night, noting that he ate meatloaf and mashed potatoes for dinner, his norm. He has not had a formed stool since prior to admission, and has continued to have liquid stools without blood since admission. He continues on IV fluids at 100 mL an hour. He has not tried to drink any fluids since last night due to the nausea and vomiting. He denies any other new symptoms, stating his abdominal pain is pretty stable and well controlled on current pain medication. He is taking [place] 2 tabs regularly for pain control. (Priscilla Mora MD R1) Objective Vitals Vital Signs Date Time Temp Pulse Resp B/P Pulse Ox O2 Delivery O2 Flow Rate FiO2 06/10/16 08:00 96.7 63 19 178/90 99 06/10/16 04:00 96.2 59 20 175/76 98 06/10/16 00:00 97.1 61 20 142/70 99 06/09/16 20:00 97.2 50 19 112/58 96 06/09/16 20:00 64 06/09/16 16:00 97.3 64 17 147/70 100 06/09/16 12:00 96.5 63 12 144/73 100 I/O 06/09/16 06/09/16 06/09/16 06/10/16 06/10/16 06/10/16 07:00 15:00 23:00 07:00 15:00 23:00 Intake Total 480 ml 0 ml 740 ml 760 ml Output Total 1250 ml 450 ml Balance -770 ml -450 ml 740 ml 760 ml Intake Oral 480 ml 0 ml 240 ml 360 ml IV Total 500 ml 400 ml Output Urine Total 1250 ml 450 ml # Voids 2 2 # Bowel Movements 0 0 0 0 (Priscilla Mora MD R1) Result Diagram: 06/10/16 0509 06/10/16 0509 Imaging Last Impressions Abdomen X-Ray 06/08/16 0000 Signed Impressions: Service Date/Time: Wednesday, June 08, 2016 11:16 - CONCLUSION: Air seen throughout the small and large bowel likely related to ileus. Spencer Carlson MD Abdomen/Pelvis CT 06/07/16 1048 Signed Impressions: Service Date/Time: Tuesday, June 07, 2016 11:10 - CONCLUSION: 1. Transplanted kidneys in the pelvis bilaterally. The left transplanted kidney has a grossly normal configuration. The right transplanted kidney is heavily calcified and likely nonfunctional. 2. Mild 3.2 cm abdominal aortic aneurysm. 3. Mild umbilical hernia containing only mesenteric fat. 4. Grade I anterior spondylolisthesis of L5 on S1 secondary to pars defects. 5. Minimal suspected atelectasis at the right lung base. Spencer Carlson MD Renal Ultrasound 06/07/16 0000 Signed Impressions: Service Date/Time: Tuesday, June 07, 2016 11:32 - CONCLUSION: Mild prominence to the collecting system. Patent renal artery and veins. Werner Joyner MD FACR Objective Remarks GENERAL: Well-appearing, well-nourished male. Patient is actively vomiting during exam. SKIN: Warm and dry. No obvious rashes, ecchymoses, or lesions. There is a vertical surgical scar on the thorax, healed RLQ kidney transplant scar. LLQ kidney transplant scar examined. There is and open approximately 3-5 centimeter area in the middle; the rest of the incision is closed. The wound is packed. No active drainage. AV fistula over left upper extremity. HEAD: Atraumatic. Normocephalic. EYES: Pupils equal and round. No scleral icterus. No injection or drainage. ENT: No nasal bleeding or discharge. Mucous membranes pink and moist. NECK: Trachea midline. No JVD. CARDIOVASCULAR: Regular rate and rhythm. No obvious murmurs on exam. RESPIRATORY: No accessory muscle use. Clear to auscultation. Breath sounds equal bilaterally. GASTROINTESTINAL: Abdomen soft, tender to palpation over the epigastric area, no obvious rebound. Bowel sounds are hypoactive. Hepatic and splenic margins not palpable. MUSCULOSKELETAL: Extremities without clubbing, cyanosis, or edema. No obvious deformities. NEUROLOGICAL: Awake and alert. No obvious cranial nerve deficits. Motor grossly within normal limits. Normal speech. Normal gait. Medications and IVs Inpatient Medications Acetaminophen/ Hydrocodone Bitart ([place] 5-325 Mg) 2 tab Q4H PRN PO pain 7-10 Last administered on 06/10/16 04:26; Start 06/08/16 at 10:30 Aspirin (Ecotrin Ec) 81 mg DAILY PO Last administered on 06/10/16 08:26; Start 06/08/16 at 09:00 Bisacodyl (Dulcolax Supp) 10 mg ONCE ONCE RECTAL ; Start 06/07/16 at 16:00; Stop 06/07/16 at 16:01; Status DC Clonidine (Catapres) 0.1 mg Q6H PRN PO SBP>160, DBP>90; Start 06/07/16 at 16:00 Doxycycline Hyclate 100 mg 100 mg BID PO Last administered on 06/10/16 08:26; Start 06/09/16 at 21:00 Heparin Sodium (Porcine) (Heparin Inj) 5,000 units Q12H SQ Last administered on 06/08/16 12:09; Start 06/07/16 at 14:00; Status Hold IV Flush (NS Flush) 2 ml BID FLUSH Last administered on 06/08/16 20:27; Start 06/07/16 at 21:00 IV Flush 2 ml 2 ml UNSCH PRN IVF FLUSH AFTER USING IV ACCESS Last administered on 06/07/16 14:05; Start 06/07/16 at 11:00; Stop 06/07/16 at 14:06; Status DC Lactulose (Lactulose Liq) 30 ml QID PO Last administered on 06/09/16 18:01; Start 06/08/16 at 18:00 Linezolid (Zyvox) 600 mg Q12HR PO Last administered on 06/09/16 09:46; Start 06/08/16 at 21:00; Stop 06/09/16 at 18:43; Status DC Magnesium Sulfate/ Dextrose (Magnesium Sulfate 1 Gm Premix) 100 ml @ 100 mls/ hr ONCE ONCE IV Last administered on 06/07/16 13:33; Start 06/07/16 at 12:15 ; Stop 06/07/16 at 13:14; Status DC Metoprolol Tartrate (Lopressor) 50 mg BID PO Last administered on 06/10/16 08: 26; Start 06/07/16 at 21:00 Morphine Sulfate (Morphine Inj) 2 mg Q4HR PRN IV PUSH breakthru pain Last administered on 06/09/16 21:15; Start 06/07/16 at 23:00 Mycophenolate Sodium (Myfortic Dr) 720 mg BID@06,18 PO Last administered on 06:20; Start 06/07/16 at 18:00 Naloxone HCl 0.4 mg 0.4 mg UNSCH PRN IV SEE LABEL COMMENTS; Start 06/07/16 at 14:00 Ondansetron HCl (Zofran Inj) 4 mg Q6H PRN IVP NAUSEA OR VOMITING Last administered on 06/10/16 09:54; Start 06/07/16 at 14:00 Pantoprazole Sodium (Protonix) 20 mg DAILY PO Last administered on 06/10/16 08 :26; Start 06/08/16 at 16:30 Polyethylene Glycol (Miralax) 17 gm DAILY PO ; Start 06/10/16 at 21:00 Potassium Phosphate (K-Phos) 1,000 mg Q12H PO Last administered on 06/10/16 03 :25; Start 06/08/16 at 16:00 Potassium Phosphate/Sodium Chloride (Potassium Phosphate Inj/NS 250 ml Inj) 260 ml @ 43.333 mls/ hr ONCE ONCE IV Last administered on 06/10/16 08:25; Start 06/10/16 at 09:00; Stop 06/10/16 at 14:59 Prednisone (Deltasone) 5 mg DAILY PO Last administered on 06/10/16 08:26; Start 06/08/16 at 09:00 Senna/Docusate Sodium (Kitty-Colace) 2 tab BID PO Last administered on 09:46; Start 06/08/16 at 09:35 Sodium Chloride (NS 1000 ml Inj) 1,000 ml @ 100 mls/hr Q10H IV Last administered on 06/10/16 03:25; Start 06/07/16 at 15:00 Sorbitol (Sorbitol 70% Liq) 30 ml HS PO Last administered on 06/08/16 22:39; Start 06/08/16 at 21:00 Tacrolimus (Prograf) 3 mg DAILY@18 PO Last administered on 06/10/16 06:20; Start 06/07/16 at 18:00 Trimethoprim/ Sulfamethoxazole (Bactrim Ds 800-160 Mg) 1 tab MoWeFr@09 PO Last administered on 06/09/16 09:46; Start 06/09/16 at 09:00 Valganciclovir (Valcyte) 450 mg DAILY PO Last administered on 06/10/16t 08:26; Start 06/08/16 at 09:00 (Priscilla Mora MD R1) Urinary Catheter: No (Priscilla Mora MD R1) A/P Assessment and Plan 45 yo M, hx of lupus s/p kidney transplant, having decreased PO intake, nausea, vomiting, diarrhea, concerning for ileus having symptomatic hypotension now resolved. He is admitted for further workup and monitoring. Persistent constipation with possible overflow diarrhea which warrants further workup. Discharge Planning Pending clinical improvement, specifically pain control and further workup/ treatment of constipation (Priscilla Mora MD R1) Attending Attestation Patient seen and examined. Case reviewed and discussed. Agree with plan of care as discussed with me and documented in the resident note. Wound improved. Patient refusing components of bowel regimen. Discussed importance of compliance with family at the bedside. Patient agreeable to comply with treatment recommendations. (Keshia Calvin MD ) Problem List: (1) Constipation Status: Acute Plan: Patient has been having overflow diarrhea since admission. States that he was taking suppositories at home without any assistance. He has been prescribed to receive multiple forms of laxative including MiraLAX, sorbitol 4 times a day, Kitty-Colace 2 test twice a day, and lactulose. He is the sorbitol last night. He refused lactulose this morning. MiraLAX is due tonight. -Zofran IV PRN -We will repeat x-ray abdomen today to reassess for stool and gas patterns ( portable given vomiting) -Consider small bowel follow-through once no longer symptomatic with vomiting (2) Nausea and vomiting Status: Acute Plan: New since last night, 06/09. He was started on doxycycline yesterday which could be contributing. He also has not had a formed stool this admission, suggesting that his ileus could be playing a role as well. -Plan as above (3) Abdominal pain Status: Acute Plan: Pain better controlled. Still no formed BM. Pain likely related to constipation and obstruction/ileus. Low PO43 may be contributing, as well as post operative adhesions. -Percocet 5/325mg 1-2 tabs PO every 4 hours -Morphine IV breakthrough -Xray abdomen 06/08 showed "air in throughout the small and large bowel likely related to ileus." -Rec ambulating as much as possible, chewing gum, and continue with current bowel regimen: -Sorbitol -Lactulose -Pericolace 2 tabs BID -Miralax 17 gm qd -Advance diet slowly (clear liquid 06/09/16). Will repeat x-ray today, 06/10 If not improving may need NG tube placement, surgical consult, and/or CT with oral contrast. (4) MRSA (methicillin resistant staph aureus) culture positive Status: Acute Plan: Kidney transplant surgical incision site was cultured on 06/07/16 on the positive for MRSA, resistant to cefazolin, Rocephin, erythromycin, levofloxacin , oxacillin, and pen G. -Patient is afebrile and notes no pain or symptoms related to wound -WBC has decreased this morning to lower limits of normal since being trended this hospital stay, also thrombocytopenic. -Given history of kidney transplant, immunocompromise, will consult Infectious Disease team to assist in antibx regimen: -Bactrim MWF and Zyvox 600 mg q 12 hr. -He is currently on doxycycline 100 mg by mouth twice a day per infectious disease. (5) Dehydration Status: Resolved Plan: On admission, BP within normal limits, no reflex tachycardia noted, low concern for sepsis given normal vitals and no leukocytosis. Lactic acid 1.1 on admission. Decreased PO intake x 1 week, with now resolved diarrhea on admission. Differential includes possible gastroenteritis vs GI adverse rxn to mycophenolate vs ileus. Patient received 2L bolus in the ED. -Continue NS at 100 mls/hr -Zofran prn -C Diff ordered, not likely positive given more likely diagnosis of constipation with overflow -Wound culture positive for MRSA - no history of MRSA documented in EMR or by history; ID consulted to assist in management of antibiotic regimen -CBC, CMP, Mg, Phos -PT consult given patient having dizziness prior to admission (6) Hypotension Status: Acute Plan: Resolved. No hypotension since presentation to the ED with patient with systolic BP 70s in ambulatory office. Patient s/p 2L total bolus in ED, now on 100cc/hr. BP has been 140s/80s since admission. -Monitor vitals -PRN clonidine 0.1mg PO PRN SBP.160/DBP>90 (7) Status post kidney transplant Status: Chronic Plan: Left Kidney Transplant April 06, [address] Nicole. Relatively immunocompromised state on immunosuppressive meds. Kidney US showing patent renal artery and veins. GFR stable at 48. -Consult nephrology, monitoring tacrolimus level, appreciate recs -Continue transplant meds: Mycophenolate, Prednisone, Tacrolimus. Valcyte suspected for CMV prophylaxis. Bactrim to prevent PCP. (8) Atrial fibrillation Status: Chronic Plan: Chart review with no clear hx of A fib. EKG 04/06/16 with no A fib. Supposedly having A fib during dialysis in the past. Patient with history of CABG. BP can tolerate BB. -Continue Metoprolol 50 mg PO BID -Continue Aspirin -Clonidine 0.1 mg PO q6h PRN BP > 160/90 (9) Thrombocytopenia Status: Acute Plan: Improving. Stable from 06/03. Possible related to Valcyte. No active hemorrhage. -monitor CBC -Hold Heparin (10) LFT elevation Status: Acute Plan: Possibly due to ileus, possibly related to hepatotoxicity 2/2 medications. Patient not obese, alcoholic and recent negative hepatitis labs in January 2016. Mycophenolate not uncommon to cause LFT elevation. -Monitor LFTs (11) Nutrition, metabolism, and development symptoms Status: Acute Plan: Fluids: NS at 110 mls/hr Electrolytes: Monitor and replete. Phosphorus is 1.4 this morning. Repleted with by mouth twice a day and IV 1 this morning. Nutrition: Clear liquid, advance as tolerated DVT Prophylaxis: Hold Heparin given thrombocytopenia, SCDs GI Prophylaxis: Protonix 20mg PO daily until 06/10, will switch to IV given nausea and vomiting (Priscilla Mora MD R1) Problem Qualifiers (1) Hypotension: Qualified Code: I95.9 - Hypotension, unspecified hypotension type Priscilla Mora MD R1 Jun 10, 2016 10:12 Keshia Calvin MD Jun 10, 2016 17:37
--- NOTE | 2016-06-10 11:14 | RADRPT ---
EXAM DATE/TIME: 06/10/2016 10:19 [facility] COMPARISON: ABDOMEN KUB ONLY, April 13, 2016, 9:06. INDICATIONS : Vomiting and abdominal pain. MEDICAL HISTORY : Hypercholesterolemia. Hypertension. Lupus. CAD. Valvular heart disease. Afib. Renal disease and failu re. SURGICAL HISTORY : CABG. Nephrectomy. Bilateral kidney transplants. Gout removal from left elbow. Blood transfusions. ENCOUNTER: Subsequent ACUITY: 3 days PAIN SCORE: 4/10 LOCATION: Abdomen, all quadrants. FINDINGS: Supine view of the abdomen was performed. The abdominal bowel gas pattern is normal. There is a aiden cified mass in the right iliac fossa likely related to a transplant kidney. Clips are seen in the [place]berth ac fossa regions bilaterally. Vascular calcifications are seen. CONCLUSION: No acute disease. Spencer Carlson MD on June 10, 2016 at 11:11 Board Certified Radiologist. This report was verified electronically.
--- NOTE | 2016-06-10 12:09 | HHI.NPPN ---
Subjective History of Present Illness 45 year old with abdominal pain, s/p kidney transplant constipation/diarrhea/ constipation Objective Data Data 06/09/16 06/10/16 19:00 07:00 Intake Total 0 ml 1500 ml Output Total 450 ml Balance -450 ml 1500 ml Intake Oral 0 ml 600 ml IV Total 900 ml Output Urine Total 450 ml # Voids 4 # Bowel Movements 0 0 Vital Signs Date Time Temp Pulse Resp B/P Pulse Ox O2 Delivery O2 Flow Rate FiO2 06/10/16 08:00 96.7 63 19 178/90 99 06/10/16 04:00 96.2 59 20 175/76 98 06/10/16 00:00 97.1 61 20 142/70 99 06/09/16 20:00 97.2 50 19 112/58 96 06/09/16 20:00 64 06/09/16 16:00 97.3 64 17 147/70 100 -: 06/10/16 0509 06/10/16 0509 Assessment/Plan Problem List: (1) Kidney transplant status, cadaveric Plan: Kidney functions Cr 1.3 dehydrated Nausea vomiting diarrhea with Lactulose Tacrolimus level pending continue with Tacrolimus 3 mg q 12, Prednisone 5 mg and Myfortic 720 PO4 1.4 2 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
[2016-06-10 13:51] LABS: BICARBONATE 22.9 MEQ/L (21.0-32.0); POTASSIUM 5.5 MEQ/L (3.5-5.1)
--- NOTE | 2016-06-10 13:53 | HHI.PR ---
Subjective Remarks A&A, reclined in bed; No c/o regarding the wound, tolerated some of his sof t diet, having liquid-like stools; Ambulating Objective Vital Signs Date Time Temp Pulse Resp B/P Pulse Ox O2 Delivery O2 Flow Rate FiO2 06/10/16 12:07 18 06/10/16 12:00 97.6 64 19 143/68 99 06/10/16 08:00 96.7 63 19 178/90 99 06/10/16 04:00 96.2 59 20 175/76 98 06/10/16 00:00 97.1 61 20 142/70 99 06/09/16 20:00 97.2 50 19 112/58 96 06/09/16 20:00 64 06/09/16 16:00 97.3 64 17 147/70 100 I/O 06/09/16 06/09/16 06/09/16 06/10/16 06/10/16 06/10/16 07:00 15:00 23:00 07:00 15:00 23:00 Intake Total 480 ml 0 ml 740 ml 760 ml Output Total 1250 ml 450 ml Balance -770 ml -450 ml 740 ml 760 ml Intake Oral 480 ml 0 ml 240 ml 360 ml IV Total 500 ml 400 ml Output Urine Total 1250 ml 450 ml # Voids 2 2 # Bowel Movements 0 0 0 0 Result Diagram: 06/10/16 0509 06/10/16 0509 Other Results Wound examined; No odor, purulence or discharge; firm, light pink granulation base; Wound care applied as outlined previously Assessment and Plan Assessment and Plan Wound continues to heal well, non-infected; labs improved;continue daily wound care as outlined Myles Nicole MD Jun 10, 2016 13:53
[2016-06-10] MEDS ORDERED: METOCLOPRAMIDE HCL 10 MG/2 ML VIAL IV PUSH PRN (15:00)
[2016-06-10] MEDS ORDERED: PEG (High)/E-LYTE SOLN 4000 ML BTL PO ONE (16:00)
[2016-06-10] MEDS ORDERED: SODIUM CHLORID 0.9% 500 ML INJ 500 ML IV ONE (16:00)
[2016-06-10] MEDS: POLYETHYLENE GLYCOL 17 GM PKG PO SCH (21:00)
[2016-06-10 21:20] LABS: BICARBONATE 22.5 MEQ/L (21.0-32.0); POTASSIUM 5.1 MEQ/L (3.5-5.1)
[2016-06-10] MEDS ORDERED: SODIUM PHOSPHATE INJ 30 MMOL in SODIUM CHLOR 0.9% 250 ML INJ 250 ML IV ONE (23:00)
[2016-06-11] MEDS: SODIUM CHLOR 0.9% 1000 ML INJ 1,000 ML IV SCH ×3 (00:18→18:23)
[2016-06-11 04:00] VITALS: BP 161/73; PULSE 61; RESP 20; TEMP 97; O2SAT 99
[2016-06-11] MEDS: TACROLIMUS 1 MG CAP PO SCH ×2 (06:37→16:55)
[2016-06-11] MEDS: MYCOPHENOLIC ACID (AS MYCOPHENOLATE SODIUM) 180 MG DR TAB PO SCH ×2 (06:37→16:55)
[2016-06-11] MEDS: ACETAMINOPHEN/HYDROcodone 325 MG/5 MG TAB PO PRN ×3 (06:41→22:15)
[2016-06-11 08:00] VITALS: BP 141/80; PULSE 64; RESP 14; TEMP 97.6; O2SAT 99
[2016-06-11] MEDS: SODIUM CHLORIDE 0.9% FLUSH 5 ML FLUSH FLUSH SCH ×2 (08:23→22:14)
[2016-06-11] MEDS: SULFAMETHOXAZOLE-TRIMETHOPRIM DS 800-160 MG TAB PO SCH (08:23)
[2016-06-11] MEDS: PANTOPRAZOLE SOD 20 MG DELAYED RELEASE TAB PO SCH (08:23)
[2016-06-11] MEDS: predniSONE 5 MG TAB PO SCH (08:23)
[2016-06-11] MEDS: DOCUSATE SODIUM 50 MG/SENNA 8.6 MG TAB PO SCH ×2 (08:23→21:00)
[2016-06-11] MEDS: POLYETHYLENE GLYCOL 17 GM PKG PO SCH (08:23)
[2016-06-11] MEDS: LACTULOSE SYRUP 20 GM/30 ML CUP PO SCH (08:23)
[2016-06-11] MEDS: ASPIRIN EC 81 MG TABEC PO SCH (08:23)
[2016-06-11] MEDS: DOXYCYCLINE HYCLATE 100 MG CAP PO SCH ×2 (08:23→22:12)
[2016-06-11] MEDS: METOPROLOL TARTRATE 25 MG TAB PO SCH ×2 (08:23→22:12)
--- NOTE | 2016-06-11 08:25 | HHI.FPPN ---
Subjective Remarks Feeling the same. 1 reported BM that was watery and had some "spinach" appearing substance. Still with periumbilical abdominal pain. Tried eating meat loaf 2 days ago and then vomitted afterward. He is getting more weak after not eating for 2 weeks. Ambulating. Go-lytely was tolerated well but did not help with BMs. Denies fevers, chills, cp, or SOB. (Agustin Foote MD R2) Objective Vitals Vital Signs Date Time Temp Pulse Resp B/P Pulse Ox O2 Delivery O2 Flow Rate FiO2 06/11/16 04:00 97.0 61 20 161/73 99 06/10/16 23:35 97.1 60 20 144/64 98 06/10/16 20:00 98.3 72 21 130/88 100 06/10/16 19:30 63 06/10/16 16:15 17 06/10/16 16:00 98.0 65 18 177/85 100 06/10/16 12:00 97.6 64 19 143/68 99 I/O 06/10/16 06/10/16 06/10/16 06/11/16 06/11/16 06/11/16 07:00 15:00 23:00 07:00 15:00 23:00 Intake Total 760 ml 399 ml 720 ml 779 ml Output Total 600 ml Balance 760 ml 399 ml 120 ml 779 ml Intake Oral 360 ml 720 ml 240 ml IV Total 400 ml 399 ml 539 ml Output Urine Total 600 ml # Voids 2 4 2 # Bowel Movements 0 0 1 (Agustin Foote MD R2) Result Diagram: 06/10/16 0509 06/10/162040 Objective Remarks GENERAL: Well-appearing, well-nourished male. Patient is actively vomiting during exam. SKIN: Warm and dry. No obvious rashes, ecchymoses, or lesions. There is a vertical surgical scar on the thorax, healed RLQ kidney transplant scar. LLQ kidney transplant scar examined. There is and open approximately 3-5 centimeter area in the middle; the rest of the incision is closed. The wound is packed. No active drainage. AV fistula over left upper extremity. HEAD: Atraumatic. Normocephalic. EYES: Pupils equal and round. No scleral icterus. No injection or drainage. ENT: No nasal bleeding or discharge. Mucous membranes pink and moist. NECK: Trachea midline. No JVD. CARDIOVASCULAR: Regular rate and rhythm. No obvious murmurs on exam. RESPIRATORY: No accessory muscle use. Clear to auscultation. Breath sounds equal bilaterally. GASTROINTESTINAL: Abdomen soft, tender to palpation over the epigastric area. Bowel sounds are hyperresonant. No distension or rebound. MUSCULOSKELETAL: Extremities without clubbing, cyanosis, or edema. No obvious deformities. NEUROLOGICAL: Awake and alert. No obvious cranial nerve deficits. Motor grossly within normal limits. Normal speech. Normal gait. (Agustin Foote MD R2) A/P Assessment and Plan 45 yo M, hx of lupus s/p kidney transplant, having decreased PO intake, nausea, vomiting, diarrhea, concerning for ileus having symptomatic hypotension now resolved. He is admitted for further workup and monitoring. Persistent constipation with possible overflow diarrhea which warrants further workup. Discharge Planning Pending clinical improvement, specifically pain control and further workup/ treatment of constipation (Agustin Foote MD R2) Attending Attestation Patient examined and case discussed with resident physicians I have read the above note and agree with the assessment/plan is discussed with me I was involved in all medical decision making for this patient Rayray Salgado M.D. (Rayray Salgado MD) Problem List: (1) Constipation Status: Acute Plan: Patient has been having overflow diarrhea since admission. States that he was taking suppositories at home without any assistance. He has been prescribed to receive multiple forms of laxative including MiraLAX, sorbitol 4 times a day, Kitty-Colace 2 test twice a day, and lactulose. He is the sorbitol last night. He refused lactulose this morning. Started on golytely - without relief in symptoms. -Zofran IV PRN -We will repeat x-ray abdomen today to reassess for stool and gas patterns ( portable given vomiting) - no disease seen : 06/10/16. -Consider small bowel follow-through. (2) Nausea and vomiting Status: Acute Plan: New since last night, 06/09. He was started on doxycycline yesterday which could be contributing. He also has not had a formed stool this admission, suggesting that his ileus could be playing a role as well. -Plan as above (3) Abdominal pain Status: Acute Plan: Pain better controlled. Still no formed BM. Pain likely related to constipation and obstruction/ileus. Low PO43 may be contributing, as well as post operative adhesions. -Percocet 5/325mg 1-2 tabs PO every 4 hours -Morphine IV breakthrough -Xray abdomen 06/08 showed "air in throughout the small and large bowel likely related to ileus." -Rec ambulating as much as possible, chewing gum, and continue with current bowel regimen: -Sorbitol -Lactulose -Pericolace 2 tabs BID -Miralax 17 gm qd -Go-lytely -Advance diet slowly (clear liquid 06/09/16). Consult GI, we appreciate their recommendations. If not improving may need NG tube placement, surgical consult, and/or CT with oral contrast. (4) MRSA (methicillin resistant staph aureus) culture positive Status: Acute Plan: Kidney transplant surgical incision site was cultured on 06/07/16 on the positive for MRSA, resistant to cefazolin, Rocephin, erythromycin, levofloxacin , oxacillin, and pen G. -Patient is afebrile and notes no pain or symptoms related to wound -WBC has decreased this morning to lower limits of normal since being trended this hospital stay, also thrombocytopenic. -Given history of kidney transplant, immunocompromise, will consult Infectious Disease team to assist in antibx regimen: -Bactrim MWF and Zyvox 600 mg q 12 hr. -He is currently on doxycycline 100 mg by mouth twice a day per infectious disease. (5) Dehydration Status: Resolved Plan: On admission, BP within normal limits, no reflex tachycardia noted, low concern for sepsis given normal vitals and no leukocytosis. Lactic acid 1.1 on admission. Decreased PO intake x 1 week, with now resolved diarrhea on admission. Differential includes possible gastroenteritis vs GI adverse rxn to mycophenolate vs ileus. Patient received 2L bolus in the ED. -Continue NS at 100 mls/hr -Zofran prn -C Diff ordered, not likely positive given more likely diagnosis of constipation with overflow -Wound culture positive for MRSA - no history of MRSA documented in EMR or by history; ID consulted to assist in management of antibiotic regimen -CBC, CMP, Mg, Phos -PT consult given patient having dizziness prior to admission (6) Hypotension Status: Acute Plan: Resolved. No hypotension since presentation to the ED with patient with systolic BP 70s in ambulatory office. Patient s/p 2L total bolus in ED, now on 100cc/hr. BP has been 140s/80s since admission. -Monitor vitals -PRN clonidine 0.1mg PO PRN SBP.160/DBP>90 (7) Status post kidney transplant Status: Chronic Plan: Left Kidney Transplant April 06, [address] Nicole. Relatively immunocompromised state on immunosuppressive meds. Kidney US showing patent renal artery and veins. GFR stable at 48. -Consult nephrology, monitoring tacrolimus level, appreciate recs. -Continue transplant meds: Mycophenolate, Prednisone, Tacrolimus. Valcyte suspected for CMV prophylaxis. Bactrim to prevent PCP. (8) Atrial fibrillation Status: Chronic Plan: Chart review with no clear hx of A fib. EKG 04/06/16 with no A fib. Supposedly having A fib during dialysis in the past. Patient with history of CABG. BP can tolerate BB. -Continue Metoprolol 50 mg PO BID -Continue Aspirin -Clonidine 0.1 mg PO q6h PRN BP > 160/90 (9) Thrombocytopenia Status: Acute Plan: Improving. Stable from 06/03. Possible related to Valcyte. No active hemorrhage. -monitor CBC -Hold Heparin (10) LFT elevation Status: Acute Plan: Possibly due to ileus, possibly related to hepatotoxicity 2/2 medications. Patient not obese, alcoholic and recent negative hepatitis labs in January 2016. Mycophenolate not uncommon to cause LFT elevation. -Monitor LFTs (11) Nutrition, metabolism, and development symptoms Status: Acute Plan: Fluids: NS at 100 mls/hr Electrolytes: Monitor and replete. Phosphorus is 1.7 this morning. Replete with IV Sodium PO4 30 mmol x 2. K+ elevated to 5.5 so holding Potassium PO4. Nutrition: Clear liquid, advance as tolerated DVT Prophylaxis: Hold Heparin given thrombocytopenia, SCDs. GI Prophylaxis: Protonix 20mg PO daily until 06/10, will switch to IV given nausea and vomiting wdw Dr. Salgado. (Agustin Foote MD R2) Problem Qualifiers (1) Hypotension: Qualified Code: I95.9 - Hypotension, unspecified hypotension type Agustin Foote MD R2 Jun 11, 2016 08:25 Rayray Salgado MD Jun 11, 2016 12:57
[2016-06-11] MEDS ORDERED: SODIUM PHOSPHATE INJ 30 MMOL in SODIUM CHLOR 0.9% 250 ML INJ 250 ML IV ONE (10:00)
[2016-06-11] MEDS ORDERED: SOD PHOSPHATE/SOD BIPHOSPHATE (ADULT) ENEMA 133ML PR ONE (11:30)
--- NOTE | 2016-06-11 11:51 | HHI.PR ---
Subjective Remarks A&A, No c/o regarding the wound, tolerated Ensure, Gatorade;taking prep for endoscopy; Ambulating Objective Vital Signs Date Time Temp Pulse Resp B/P Pulse Ox O2 Delivery O2 Flow Rate FiO2 06/11/16 08:22 18 06/11/16 08:00 97.6 64 14 141/80 99 06/11/16 04:00 97.0 61 20 161/73 99 06/10/16 23:35 97.1 60 20 144/64 98 06/10/16 20:00 98.3 72 21 130/88 100 06/10/16 19:30 63 06/10/16 16:00 98.0 65 18 177/85 100 06/10/16 12:00 97.6 64 19 143/68 99 I/O 06/10/16 06/10/16 06/10/16 06/11/16 06/11/16 06/11/16 07:00 15:00 23:00 07:00 15:00 23:00 Intake Total 760 ml 399 ml 720 ml 779 ml Output Total 600 ml Balance 760 ml 399 ml 120 ml 779 ml Intake Oral 360 ml 720 ml 240 ml IV Total 400 ml 399 ml 539 ml Output Urine Total 600 ml # Voids 2 4 2 # Bowel Movements 0 0 1 Result Diagram: 06/10/16 0509 06/10/162040 Other Results Wound continues to look well, no signs of infection, no odor or purulence, good granulation base Assessment and Plan Assessment and Plan Wound continues to heal; labs indicate CMV disease;continue daily wound care as outlined Myles Nicole MD Jun 11, 2016 11:51
--- NOTE | 2016-06-11 11:54 | HHI.NPPN ---
Subjective History of Present Illness 45 year old with abdominal pain, s/p kidney transplant constipation/diarrhea/ constipation Objective Data Data 06/10/16 06/11/16 19:00 07:00 Intake Total 879 ml 1019 ml Output Total 600 ml Balance 879 ml 419 ml Intake Oral 480 ml 480 ml IV Total 399 ml 539 ml Output Urine Total 600 ml # Voids 4 2 # Bowel Movements 0 1 Vital Signs Date Time Temp Pulse Resp B/P Pulse Ox O2 Delivery O2 Flow Rate FiO2 06/11/16 08:22 18 06/11/16 08:00 97.6 64 14 141/80 99 06/11/16 04:00 97.0 61 20 161/73 99 06/10/16 23:35 97.1 60 20 144/64 98 06/10/16 20:00 98.3 72 21 130/88 100 06/10/16 19:30 63 06/10/16 16:00 98.0 65 18 177/85 100 06/10/16 12:00 97.6 64 19 143/68 99 -: 06/10/16 0509 06/10/16 2041 Assessment/Plan Problem List: (1) Kidney transplant status, cadaveric Plan: Kidney functions Cr 1.4 dehydrated Nausea vomiting diarrhea with Lactulose Tacrolimus level high adjust Tacrolimus 2 mg q 12, Prednisone 5 mg and Myfortic 720 PO4 1.7 Vit D def and Hyperparathyroidism start Vit D 5000 units GI issues low PO4 need correction CMV antigen infection GI consulted increase Valcyte to 900 mg bid. discussed with GI tried to call Dr. Walters she is on vacation consult ID for CMV infection (2) Hypotension Plan: Corrected by giving him IV fluids (3) Dehydration Plan: On IV hydration (4) MRSA (methicillin resistant staph aureus) culture positive Plan: in wound off Zyvox Problem Qualifiers (1) Hypotension: Qualified Code: I95.9 - Hypotension, unspecified hypotension type Sylvester Romano MD Jun 11, 2016 11:54
--- NOTE | 2016-06-11 12:34 | PD.CONS ---
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 Chacko on April 06, 2016. The patient reports that he was doing well up until 06/01/16, when he reports that he started having issues with constipation, nausea, distention. He has never previously had any issues with constipation. He said around the same time , he started having some epigastric discomfort, described as a dull ache. This is intermittently and seems to be related to his constipation. He tried Miralax , MOM, prune juice mixed with gingerale and did not have any results. He reports that he is being seen by a nurse for surgical wound and that she gave him two enemas this past Tuesday. He reports that he did pass some stool with this, but that it was mostly liquid and does not feel that he passed any significant amount of stool. He reports that he has lost about 6 lbs but no significant weight loss. He is not having any melena/hematochezia. He gets regular colonoscopies. He cannot recall when the last one was performed, but states that it has been within the past five years and that this was normal. He denies having one prior to his most recent kidney transplant. He states that this was normal without any polyps. Of note, he has never been seen by our office according to outpt records. KUB (06/08/16)-----> air seen throughout the small and large bowel likely related to ileus. Abdomen/Pelvis CT (06/07/16)- ---> 1. Transplanted kidneys in the pelvis bilaterally. The left transplanted kidney has a grossly normal configuration. The right transplanted kidney is heavily calcified and likely nonfunctional. 2. Mild 3.2 cm abdominal aortic aneurysm. 3. Mild umbilical hernia containing only mesenteric fat. 4. Grade I anterior spondylolisthesis of L5 on S1 secondary to pars defects. 5. Minimal suspected atelectasis at the right lung base. Pt was given Miralax, Sorbitol, Lactulose, and Golytely but according to the EMR, he has refused the sorbitol, lactulose, and Miralax. He has only had a small amount of the Golytely, < 1/4th. Of note, he did start taking some pain meds with the onset of his symptoms, but stresses that he started this AFTER his symptoms started and he does not feel that this could possibly be contributing. Post-operatively , he was receiving Valcyte, but recent quantitative CMV was positive with a viral load of 158,000. Clinically, he currently is not distended. He has mild epigastric discomfort. He reports that he is passing liquid stool, but nothing solid. (Echo Cedeno) PFSH Past Medical History Atrial fibrillation Lupus History end-stage renal disease secondary to lupus nephropathy Coronary artery disease. Past Surgical History Kidney transplant 2 in 1997 and March 2016 CABG 2 Colonoscopy (Echo Cedeno) Coded Allergies: Compazine (Verified Allergy, Severe, 06/07/16) *MDRO Multi-Drug Resistant Organism (Verified Adverse Reaction, Unknown, ) 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 Medications Allergies Coded Allergies Type Severity Reaction Last Updated Verified Compazine Allergy Severe 06/07/16 Yes *MDRO Multi-Drug Resistant Organism Adverse Reaction Unknown 06/09/16 Yes Active Scripts Medications Dose Route/Sig Days Date Category Aspirin 81 Mg Tabdr 81 Mg PO DAILY 06/07/16 Reported Myfortic (Mycophenolate Sodium) 180 Mg Tab 720 Mg PO BID 04/14/16 Reported Bactrim DS (Sulfamethoxazole-Trimethoprim) 800-160 Mg Tab 1 Tab PO 04/12/16 Reported Tacrolimus 1 Mg Cap 3 Mg PO Q12H 04/12/16 Reported Metoprolol Tartrate 25 Mg Tab 50 Mg PO BID 04/12/16 Reported Valcyte (Valganciclovir) 450 Mg Tab 450 Mg PO DAILY 04/12/16 Reported Deltasone (Prednisone) 20 Mg Tab 5 Mg PO DAILY 04/12/16 Reported Family History Noncontributory Social History No tobacco, etoh, illicit drug use. (Echo Cedeno) Review of Systems Constitutional: COMPLAINS OF: Fatigue, Weight loss (6 pounds), DENIES: Change in appetite Respiratory: DENIES: Cough Cardiovascular: DENIES: Chest pain Gastrointestinal: COMPLAINS OF: Abdominal pain, Constipation, Nausea, DENIES: Black stools, Bloody stools, Vomiting, Swelling of Abdomen, Heartburn Musculoskeletal: DENIES: Joint pain Integumentary: DENIES: Abnormal pigmentation Hematologic/lymphatic: DENIES: Bruising Neurologic: DENIES: Headache Psychiatric: DENIES: Confusion (Echo Cedeno) GI Exam Vitals I&O Vital Signs Date Time Temp Pulse Resp B/P Pulse Ox O2 Delivery O2 Flow Rate FiO2 06/11/16 08:22 18 06/11/16 08:00 97.6 64 14 141/80 99 06/11/16 04:00 97.0 61 20 161/73 99 06/10/16 23:35 97.1 60 20 144/64 98 06/10/16 20:00 98.3 72 21 130/88 100 06/10/16 19:30 63 06/10/16 16:00 98.0 65 18 177/85 100 06/10/16 12:00 97.6 64 19 143/68 99 I/O 06/10/16 06/10/16 06/10/16 06/11/16 06/11/16 06/11/16 07:00 15:00 23:00 07:00 15:00 23:00 Intake Total 760 ml 399 ml 720 ml 779 ml Output Total 600 ml Balance 760 ml 399 ml 120 ml 779 ml Intake Oral 360 ml 720 ml 240 ml IV Total 400 ml 399 ml 539 ml Output Urine Total 600 ml # Voids 2 4 2 # Bowel Movements 0 0 1 Imaging Last Impressions Abdomen X-Ray 06/10/16 0000 Signed Impressions: Service Date/Time: May 10:19 - CONCLUSION: No acute disease. Spencer Carlson MD Abdomen/Pelvis CT 06/07/16 1048 Signed Impressions: Service Date/Time: Tuesday, June 07, 2016 11:10 - CONCLUSION: 1. Transplanted kidneys in the pelvis bilaterally. The left transplanted kidney has a grossly normal configuration. The right transplanted kidney is heavily calcified and likely nonfunctional. 2. Mild 3.2 cm abdominal aortic aneurysm. 3. Mild umbilical hernia containing only mesenteric fat. 4. Grade I anterior spondylolisthesis of L5 on S1 secondary to pars defects. 5. Minimal suspected atelectasis at the right lung base. Spencer Carlson MD Renal Ultrasound 06/07/16 0000 Signed Impressions: Service Date/Time: Tuesday, June 07, 2016 11:32 - CONCLUSION: Mild prominence to the collecting system. Patent renal artery and veins. Werner Joyner MD FACR Laboratory Test 06/10/16 06/10/16 06/10/16 13:10 14:38 20:41 Sodium Level 141 MEQ/L 141 MEQ/L Potassium Level 5.5 MEQ/L 5.1 MEQ/L Chloride Level 111 MEQ/L 111 MEQ/L Carbon Dioxide Level 22.9 MEQ/L 22.5 MEQ/L Anion Gap 7 MEQ/L 8 MEQ/L Blood Urea Nitrogen 19 MG/DL 18 MG/DL Creatinine 1.53 MG/DL 1.42 MG/DL Estimat Glomerular Filtration 49 ML/MIN 53 ML/MIN Rate Random Glucose 95 MG/DL 79 MG/DL Calcium Level 9.5 MG/DL 9.1 MG/DL Phosphorus Level 2.4 MG/DL 1.7 MG/DL 25-Hydroxy Vitamin D Total 14.9 ng/ML Parathyroid Hormone (Intact) 348.3 PG/ML Cytomegalovirus DNA Quant [id number] IU/mL (PCR) Urine Random Sodium 176 MEQ/L Urine Random Potassium 21 MEQ/L Urine Random Chloride 190 MEQ/L Date/Time Procedure Status Source Growth 06/07/16 18:15 Aerobic Blood Culture - Preliminary Resulted Blood Peripheral NO GROWTH IN 4 DAYS 06/07/16 18:15 Anaerobic Blood Culture - Preliminary Resulted Blood Peripheral NO GROWTH IN 4 DAYS 06/07/16 17:30 Gram Stain - Final Complete Wound Abdomen 06/07/16 17:30 Wound Culture - Final Complete S. Aureus Mrsa Physical Examination HEENT: Normocephalic; atraumatic; no jaundice. CHEST: CTA CARDIAC: RRR ABDOMEN: Soft, NONdistended, NONtender, no hepatosplenomegaly; bowel sounds are present in all four quadrants. EXTREMITIES: No clubbing, cyanosis, or edema. SKIN: Normal; no rash; no jaundice. HEAD BAKER: No focal deficits; alert and oriented times three. (Echo Cedeno) Assessment and Plan Plan ASSESSMENT: - Ileus, constipation. Patient is status post recent renal transplant (March 2016). He was doing well up until 06/01/16, when he started having nausea, epigastric pain, and severe Constipation. He tried MiraLAX, milk of magnesia, prune juice mixed with [place] and reports he didn't have any results. He was also given 2 enemas by his home health care nurse last Tuesday and reports that he passed a small amount of liquid but no significant stool. KUB on admission was consistent with ileus. CT unremarkable. He has been given Miralax, Lactulose, Sorbitol, and Golytely here, but is currently refusing the Miralax, Lactulose, and Sorbitol and has only had < 1/4 of the Golytely. He is passing liquid stool with some particles, but no formed stool. Clinically, he is NONdistended, mild abdominal tenderness. He is currently getting pain medicine for his discomfort, but reports that he was not taking any pain meds until AFTER his symptoms began. 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 It is likely that his ileus, abdominal discomfort, and elevated LFTs are related to his current CMV infection. This versus ileus, this seems to be improving although he still has not had a solid stool. Would change the Reglan to scheduled, but decrease to a renal dose, SSEx 2, Cont. Miralax. If patient has worsening of symptoms, could give a trial of Relistor were although it is more likely that his ileus is related to his infection than opiate use. - Abdominal pain. PPI. - Elevated LFTs. Mild elevation. Last checked 06/07 with total bilirubin 0.4, AST 58, ALT 84, alkaline phosphatase 144. 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 - Recent renal transplant. 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 Chacko in March of this year. - CAD, Afib. PLAN: - Full liquid diet- Advance as tolerated. - Change Reglan to 5 mg IV every 8 hours - Soap suds enema 2 - Recommend continuing the MiraLAX daily - Valcyte per renal - Monitor LFTs - Supportive care - D/W Dr. Romano - At this time he seems to be improving. If he has any worsening of symptoms could give trial of Relistor - Pt seen and examined by Dr. Bell and myself and this note is written on his behalf (Echo Cedeno) Physician Comments Seen and examined with OLINDA, doing better. Bowel regimen as recommended by MS. Cedeno. If not better consider colonoscopy. Thank you (Joseph Bell MD) Echo Cedeno Jun 11, 2016 12:34 Joseph Bell MD Jun 11, 2016 18:13
[2016-06-11] MEDS ORDERED: CHOLECALCIFEROL (VIT D3) 5000 UNIT CAP PO ONE (13:00)
[2016-06-11] MEDS: METOCLOPRAMIDE HCL 10 MG/2 ML VIAL IV PUSH SCH ×2 (13:58→22:14)
[2016-06-11 16:00] VITALS: BP 139/71; PULSE 65; RESP 13; TEMP 98.5; O2SAT 98
[2016-06-11 20:00] VITALS: BP 148/82; PULSE 68; RESP 18; TEMP 98; O2SAT 98
[2016-06-12] VITALS: BP 137/78; PULSE 62; RESP 20; TEMP 97; O2SAT 96
[2016-06-12 04:00] VITALS: BP 126/74; PULSE 72; RESP 20; TEMP 98.2; O2SAT 99
[2016-06-12 04:58] LABS: HEMATOCRIT 37.3 % (39.0-51.0); MEAN CELL VOLUME 86.9 FL (80.0-100.0); MEAN CORPUSCULAR HEMOGLOBIN 27.8 PG (27.0-34.0); PLATELET COUNT 106 TH/MM3 (150-450); RED BLOOD COUNT 4.29 MIL/MM3 (4.50-5.90); RED CELL DISTRIBUTION WIDTH 17.1 % (11.6-17.2)
[2016-06-12 05:28] LABS: ALT (GPT) 109 U/L (12-78); ANION GAP 9 MEQ/L (5-15); AST (GOT) 73 U/L (15-37); BICARBONATE 19.9 MEQ/L (21.0-32.0); BLOOD UREA NITROGEN 16 MG/DL (7-18); CHLORIDE 112 MEQ/L (98-107); GLOMERULAR FILTRATION RATE 62 ML/MIN (>89); HEMO FLAGS AUTO DIFF; POTASSIUM 4.4 MEQ/L (3.5-5.1); SODIUM (NA) 141 MEQ/L (136-145)
[2016-06-12 05:31] LABS: ALKALINE PHOSPHATASE 134 U/L (45-117); TOTAL BILIRUBIN ADULT 0.4 MG/DL (0.2-1.0)
[2016-06-12] MEDS: TACROLIMUS 1 MG CAP PO SCH (06:41)
[2016-06-12] MEDS: MYCOPHENOLIC ACID (AS MYCOPHENOLATE SODIUM) 180 MG DR TAB PO SCH (06:41)
[2016-06-12] MEDS: METOCLOPRAMIDE HCL 10 MG/2 ML VIAL IV PUSH SCH (06:42)
[2016-06-12] MEDS: SODIUM CHLOR 0.9% 1000 ML INJ 1,000 ML IV SCH ×2 (07:12→08:41)
[2016-06-12 07:15] LABS: BANDS 7 % (0-6); BASOPHILS 1 % (0-2); EOSINOPHILS 1 % (0-4); NEUTROPHIL # MANUAL DIFF 2.9 TH/MM3 (1.8-7.7); POLYS (SEG NEUTROPHILS) 50 % (16-70); WBC DIFF SAMPLE 100
[2016-06-12 07:16] LABS: ACANTHOCYTES OCC (NORMAL); OVALOCYTES 1+ (NORMAL)
[2016-06-12 07:17] LABS: HELMET CELLS OCC (NORMAL); PLATELET ESTIMATE SMEAR LOW (NORMAL); PLATELET MORPHOLOGY NORMAL (NORMAL); SCAN/DIFF FINAL DIFF MANUAL
[2016-06-12 07:53] VITALS: PULSE 61
[2016-06-12 08:00] VITALS: BP 139/68; PULSE 66; RESP 17; TEMP 96.8; O2SAT 97
[2016-06-12] MEDS ORDERED: SODIUM PHOSPHATE INJ 30 MMOL in SODIUM CHLOR 0.9% 250 ML INJ 250 ML IV ONE ×2 (08:00→10:45)
[2016-06-12] MEDS: SODIUM CHLORIDE 0.9% FLUSH 5 ML FLUSH FLUSH SCH (08:38)
--- NOTE | 2016-06-12 08:38 | HHI.GIFU ---
Subjective Remarks Resting in bed. Feeling better. No nausea/vomiting. Mild epigastric discomfort that comes and goes- improved. S/P SSE yesterday- large liquid stool. (Echo Cedeno) Objective Vitals I&O Vital Signs Date Time Temp Pulse Resp B/P Pulse Ox O2 Delivery O2 Flow Rate FiO2 06/12/16 08:00 96.8 66 17 139/68 97 06/12/16 07:53 61 06/12/16 04:00 98.2 72 20 126/74 99 06/12/16 00:00 97.0 62 20 137/78 96 06/11/16 20:00 98.0 68 18 148/82 98 06/11/16 16:31 18 06/11/16 16:00 98.5 65 13 139/71 98 I/O 06/11/16 06/11/16 06/11/16 06/12/16 06/12/16 06/12/16 06:59 14:59 22:59 06:59 14:59 22:59 Intake Total 779 ml 973 ml 480 ml 360 ml Output Total 150 ml 750 ml 650 ml Balance 779 ml 823 ml -270 ml -290 ml Intake Oral 240 ml 560 ml 480 ml 360 ml IV Total 539 ml 413 ml Output Urine Total 150 ml 750 ml 650 ml # Voids 2 # Bowel Movements 1 1 0 0 Laboratory Laboratory Tests Test 06/12/16 04:35 White Blood Count 5.0 Red Blood Count 4.29 Hemoglobin 11.9 Hematocrit 37.3 Mean Corpuscular Volume 86.9 Mean Corpuscular Hemoglobin 27.8 Mean Corpuscular Hemoglobin 32.0 Concent Red Cell Distribution Width 17.1 Platelet Count 106 Mean Platelet Volume 10.3 Neutrophils (%) (Auto) Lymphocytes (%) (Auto) Monocytes (%) (Auto) Eosinophils (%) (Auto) Basophils (%) (Auto) Neutrophils # (Auto) Lymphocytes # (Auto) Monocytes # (Auto) Eosinophils # (Auto) Basophils # (Auto) CBC Comment AUTO DIFF Differential Total Cells 100 Counted Neutrophils % (Manual) 50 Band Neutrophils % 7 Lymphocytes % 33 Monocytes % 8 Eosinophils % 1 Basophils % 1 Neutrophils # (Manual) 2.9 Differential Comment FINAL DIFF MANUAL Platelet Estimate LOW Platelet Morphology Comment NORMAL Ovalocytes 1+ Helmet Cells OCC Acanthocytes OCC Sodium Level 141 Potassium Level 4.4 Chloride Level 112 Carbon Dioxide Level 19.9 Anion Gap 9 Blood Urea Nitrogen 16 Creatinine 1.24 Estimat Glomerular Filtration 62 Rate Random Glucose 68 Calcium Level 8.8 Phosphorus Level 1.9 Total Bilirubin 0.4 Aspartate Amino Transf 73 (AST/SGOT) Alanine Aminotransferase 109 (ALT/SGPT) Alkaline Phosphatase 134 Total Protein 5.9 Albumin 3.0 Date/Time Procedure Status Source Growth 06/07/16 18:15 Aerobic Blood Culture - Preliminary Resulted Blood Peripheral NO GROWTH IN 4 DAYS 06/07/16 18:15 Anaerobic Blood Culture - Preliminary Resulted Blood Peripheral NO GROWTH IN 4 DAYS 06/07/16 17:30 Gram Stain - Final Complete Wound Abdomen 06/07/16 17:30 Wound Culture - Final Complete S. [facility] Last Impressions Abdomen X-Ray 06/10/16 0000 Signed Impressions: Service Date/Time: May 10:19 - CONCLUSION: No acute disease. Spencer Carlson MD Abdomen/Pelvis CT 06/07/16 1048 Signed Impressions: Service Date/Time: Tuesday, June 07, 2016 11:10 - CONCLUSION: 1. Transplanted kidneys in the pelvis bilaterally. The left transplanted kidney has a grossly normal configuration. The right transplanted kidney is heavily calcified and likely nonfunctional. 2. Mild 3.2 cm abdominal aortic aneurysm. 3. Mild umbilical hernia containing only mesenteric fat. 4. Grade I anterior spondylolisthesis of L5 on S1 secondary to pars defects. 5. Minimal suspected atelectasis at the right lung base. Spencer Carlson MD Renal Ultrasound 06/07/16 0000 Signed Impressions: Service Date/Time: Tuesday, June 07, 2016 11:32 - CONCLUSION: Mild prominence to the collecting system. Patent renal artery and veins. Werner Joyner MD FACR Physical Exam HEENT: Normocephalic; atraumatic; no jaundice. CHEST: Chest is clear to auscultation and percussion. CARDIAC: RRR ABDOMEN: Soft, nondistended,mild epigastric tenderness; no hepatosplenomegaly; bowel sounds are present in all four quadrants. Incision line LLQ, small open area with packed iodoform noted EXTREMITIES: No clubbing, cyanosis, or edema. SKIN: Normal; no rash; no jaundice. TOUCHER UP: No focal deficits; alert and oriented times three. (Echo CedenoP) Assessment and Plan Plan ASSESSMENT: - Ileus, constipation. Patient is status post recent renal transplant (March 2016). KUB on admission was consistent with ileus. CT unremarkable. S/P Miralax, Lactulose, Sorbitol, and Golytely here, but currently refusing these and has only had < 1/4 of the Golytely. S/P SSE x2 (06/12). Large liquid stool. 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 It is likely that his ileus, abdominal discomfort, and elevated LFTs are related to his current CMV infection. IMPROVING. Tolerating diet. No n/v. No distention. + BM. Miralax. Reglan. - Abdominal pain. IMPROVED. PPI. - Elevated LFTs. T. Bili 0.4, AST 73, ALT 109, ALk Phosph 134. Will check hepatitis profile and AGUSTINA, AMA, ASMA. Likely this is related to CMV infection. 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 - Recent renal transplant. 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 Chacko in March of this year. - CAD, Afib. PLAN: - Regular diet - Reglan to 5 mg IV every 8 hours - S/P Soap suds enema 2 (06/11) - Refusing Lactulose, Sorbitol - Cont. Miralax - Valcyte per renal - Monitor LFTs - Supportive care - At this time he seems to be improving. If he has any worsening of symptoms, consider colonoscopy - Pt seen and examined by Dr. Espinal and myself and this note is written on his behalf (Echo Cedeno) Physician Comments patient seen and examined agree with above continue with current supportive care monitor labs (Nitish Espinal MD) Echo Cedeno Jun 12, 2016 08:38 Nitish Espinal MD Jun 12, 2016 14:43
[2016-06-12] MEDS: predniSONE 5 MG TAB PO SCH (08:39)
[2016-06-12] MEDS: DOXYCYCLINE HYCLATE 100 MG CAP PO SCH (08:39)
[2016-06-12] MEDS: ASPIRIN EC 81 MG TABEC PO SCH (08:39)
[2016-06-12] MEDS: METOPROLOL TARTRATE 25 MG TAB PO SCH (08:40)
[2016-06-12] MEDS: PANTOPRAZOLE SOD 20 MG DELAYED RELEASE TAB PO SCH (08:40)
[2016-06-12] MEDS: DOCUSATE SODIUM 50 MG/SENNA 8.6 MG TAB PO SCH (08:40)
[2016-06-12] MEDS: POLYETHYLENE GLYCOL 17 GM PKG PO SCH (08:40)
[2016-06-12] MEDS ORDERED: CHOLECALCIFEROL (VIT D3) 5000 UNIT CAP PO SCH (09:00)
[2016-06-12] MEDS ORDERED: BACT800T5 PO (09:57)
[2016-06-12] MEDS ORDERED: HYDR-3516 PO (09:57)
[2016-06-12] MEDS ORDERED: PANT20 PO (09:57)
[2016-06-12] MEDS ORDERED: DOXY100C PO (09:57)
[2016-06-12] MEDS ORDERED: POLY17S PO (09:57)
--- NOTE | 2016-06-12 10:00 | HHI.DCPOC ---
Discharge Care Plan Diagnosis: (1) CMV (cytomegalovirus) status positive (2) Abdominal pain (3) Constipation (4) MRSA (methicillin resistant staph aureus) culture positive (5) Status post kidney transplant Goals to Promote Your Health * To prevent worsening of your condition and complications, follow up with Physician within 1 week. Directions to Meet Your Goals Take your medications as prescribed Follow your dietary instruction Follow activity as directed Keep your appointments as scheduled Take your immunizations and boosters as scheduled If your symptoms worsen call your PCP, if no PCP go to Urgent Care Center or Emergency Room Smoking is Dangerous to Your Health. Avoid second hand smoke Call the 24-hour hour crisis hotline for domestic abuse at Kelli Mora MD Jun 12, 2016 10:00
[2016-06-12] MEDS ORDERED: REGL5TAB PO (10:11)
[2016-06-12] MEDS ORDERED: VALG450 PO (10:11)
--- NOTE | 2016-06-12 11:02 | HHI.FPPN ---
Subjective Remarks Patient reports having a formed stool early this morning. He reports that his abd pain has improved, although he does continue to have some intermittent epigastric fullness. He denies pain at this time and is not requiring scheduled analgesia. Patient denies fever, chills, cp, sob. No hematochezia. He would feel comfortable with dc home today and agrees to close follow up with Dr. Nicole. (Kelli Mora MD) Objective Vitals Vital Signs Date Time Temp Pulse Resp B/P Pulse Ox O2 Delivery O2 Flow Rate FiO2 06/12/16 08:00 96.8 66 17 139/68 97 06/12/16 07:53 61 06/12/16 04:00 98.2 72 20 126/74 99 06/12/16 00:00 97.0 62 20 137/78 96 06/11/16 20:00 98.0 68 18 148/82 98 06/11/16 16:31 18 06/11/16 16:00 98.5 65 13 139/71 98 I/O 06/11/16 06/11/16 06/11/16 06/12/16 06/12/16 06/12/16 07:00 15:00 23:00 07:00 15:00 23:00 Intake Total 779 ml 973 ml 480 ml 360 ml Output Total 150 ml 750 ml 650 ml Balance 779 ml 823 ml -270 ml -290 ml Intake Oral 240 ml 560 ml 480 ml 360 ml IV Total 539 ml 413 ml Output Urine Total 150 ml 750 ml 650 ml # Voids 2 # Bowel Movements 1 1 0 0 (Kelli Mora MD) Result Diagram: 06/12/16 0435 06/12/16 043 Objective Remarks GENERAL: Well-appearing, well-nourished male. Patient is actively vomiting during exam. SKIN: Warm and dry. No obvious rashes, ecchymoses, or lesions. There is a vertical surgical scar on the thorax, healed RLQ kidney transplant scar. LLQ kidney transplant scar examined. There is and open approximately 3-5 centimeter area in the middle; the rest of the incision is closed. The wound is packed. No active drainage. AV fistula over left upper extremity. HEAD: Atraumatic. Normocephalic. EYES: Pupils equal and round. No scleral icterus. No injection or drainage. ENT: No nasal bleeding or discharge. Mucous membranes pink and moist. NECK: Trachea midline. No JVD. CARDIOVASCULAR: Regular rate and rhythm. No obvious murmurs on exam. RESPIRATORY: No accessory muscle use. Clear to auscultation. Breath sounds equal bilaterally. GASTROINTESTINAL: Abdomen soft, mildly tender to palpation over the epigastric area. Bowel sounds are hyperresonant. No distension or rebound. MUSCULOSKELETAL: Extremities without clubbing, cyanosis, or edema. No obvious deformities. NEUROLOGICAL: Awake and alert. No obvious cranial nerve deficits. Motor grossly within normal limits. Normal speech. Normal gait. (Kelli Mora MD) Urinary Catheter: No (Kelli Mora MD) Vascular Central Line Catheter: No (Kelli Mora MD) A/P Assessment and Plan 45 yo M, hx of lupus s/p kidney transplant, having decreased PO intake, nausea, vomiting, diarrhea, concerning for ileus having symptomatic hypotension now resolved. He is admitted for further workup and monitoring. Persistent constipation with possible overflow diarrhea which warrants further workup. appreciate recs: Nephrology, ID and GI Discharge Planning Pending clinical improvement, specifically pain control and further workup/ treatment of constipation (Kelli Mora MD) Attending Attestation Patient examined and case discussed with resident physician I have read the above note and agree with the assessment/plan is discussed with me I was involved in all medical decision making for this patient Rayray Salgado M.D. (Rayray Salgado MD) Problem List: (1) Abdominal pain Status: Acute Plan: Pain better controlled. Reports formed BM. Xray abdomen 06/08 showed "air in throughout the small and large bowel likely related to ileus. "Low PO4 and CMV contributing but must also consider adhesions. CMV associated with ileus. Given significant improved pain, patient having bowel movement, he can continue medical treatment at home. Tolerating regular basic diet. -DC home today -Valcyte 900 mg po bid -Percocet 5/325mg 1 tabs PO every 6 hours prn sever pain -Miralax 17 gm qd -Reglan 5 mg po tid -Protonix 20 mg po daily -Follow up with Dr. Nicole within 1 week (2) Constipation Status: Resolved Plan: Ileus. Patient has been having overflow diarrhea during much of hospital course but now having formed stool. -plan as above (3) Nausea and vomiting Status: Resolved Plan: New since last night, 06/09. Related to ileus. -plan as above (4) MRSA (methicillin resistant staph aureus) culture positive Status: Acute Plan: Kidney transplant surgical incision site was cultured on 06/07/16 on the positive for MRSA, resistant to cefazolin, Rocephin, erythromycin, levofloxacin , oxacillin, and pen G. Initially started on Zyvox but switched to oral therapy. Per most recent ID recs, patient to complete Doxycycline x 7 days. -Patient is afebrile and notes no pain or symptoms related to wound -Doxycycline 100 mg po bid x 4 days to complete 7 days therapy (5) Dehydration Status: Resolved Plan: On admission, BP within normal limits, no reflex tachycardia noted, low concern for sepsis given normal vitals and no leukocytosis. Lactic acid 1.1 on admission. Decreased PO intake x 1 week, with now resolved diarrhea on admission. Differential includes possible gastroenteritis vs GI adverse rxn to mycophenolate vs ileus. Patient received 2L bolus in the ED. -Continue NS at 100 mls/hr -Zofran prn -C Diff ordered, not likely positive given more likely diagnosis of constipation with overflow -Wound culture positive for MRSA - no history of MRSA documented in EMR or by history; ID consulted to assist in management of antibiotic regimen -CBC, CMP, Mg, Phos -PT consult given patient having dizziness prior to admission (6) Hypotension Status: Resolved Plan: Resolved. No hypotension since presentation to the ED with patient with systolic BP 70s in ambulatory office. Patient s/p 2L total bolus in ED, now on 100cc/hr. BP has been 140s/80s since admission. -Monitor vitals -PRN clonidine 0.1mg PO PRN SBP.160/DBP>90 (7) Status post kidney transplant Status: Chronic Plan: Left Kidney Transplant April 06, [address] Nicole. Relatively immunocompromised state on immunosuppressive meds. Kidney US showing patent renal artery and veins. GFR stable at 62, improving. -Consult nephrology, monitoring tacrolimus level, appreciate recs. -Continue transplant meds: Mycophenolate, Prednisone, Tacrolimus. Valcyte increased to 900 mg po bid given CMV infection. Bactrim to prevent PCP. (8) Atrial fibrillation Status: Chronic Plan: Chart review with no clear hx of A fib. EKG 04/06/16 with no A fib. Supposedly having A fib during dialysis in the past. Patient with history of CABG. BP can tolerate BB. -Continue Metoprolol 50 mg PO BID -Continue Aspirin -Clonidine 0.1 mg PO q6h PRN BP > 160/90 (9) Thrombocytopenia Status: Acute Plan: Improving. Stable from 06/03. Possible related to Valcyte. No active hemorrhage. -monitor CBC -Hold Heparin (10) LFT elevation Status: Acute Plan: Possibly due to ileus, possibly related to hepatotoxicity 2/2 medications vs ileus vs CMV. Patient not obese, alcoholic and recent negative hepatitis labs in January 2016. -Monitor LFTs outpatient per PCP (11) Nutrition, metabolism, and development symptoms Status: Acute Plan: Fluids: HLIV Electrolytes: Monitor and replete. Phosphorus is 1.9 this morning. Replete with IV Sodium PO4 30 mmol x 1. Nutrition: Clear liquid, advance as tolerated DVT Prophylaxis: Hold Heparin given thrombocytopenia, SCDs. GI Prophylaxis: Protonix 20mg PO daily wdw Dr. Salgado. (Kelli Mora MD) Problem Qualifiers (1) Hypotension: Qualified Code: I95.9 - Hypotension, unspecified hypotension type Kelli Mora MD Jun 12, 2016 11:02 Rayray Salgado MD Jun 12, 2016 12:19
--- NOTE | 2016-06-12 11:35 | HHI.NPPN ---
Subjective History of Present Illness 45 year old with abdominal pain, s/p kidney transplant constipation/diarrhea/ constipation Additional Remarks Patient is alert, feeling better, no SOB. Objective Data Data 06/11/16 06/12/16 19:00 07:00 Intake Total 973 ml 840 ml Output Total 150 ml 1400 ml Balance 823 ml -560 ml Intake Oral 560 ml 840 ml IV Total 413 ml Output Urine Total 150 ml 1400 ml # Bowel Movements 1 0 Vital Signs Date Time Temp Pulse Resp B/P Pulse Ox O2 Delivery O2 Flow Rate FiO2 06/12/16 08:00 96.8 66 17 139/68 97 06/12/16 07:53 61 06/12/16 04:00 98.2 72 20 126/74 99 06/12/16 00:00 97.0 62 20 137/78 96 06/11/16 20:00 98.0 68 18 148/82 98 06/11/16 16:31 18 06/11/16 16:00 98.5 65 13 139/71 98 -: 06/12/16 0435 06/12/16 0435 Physical Exam General Appearance: No Acute Distress, Comfortable Eyes Eye Exam: Pupils Equal Neck Neck Exam: Neck Supple Pulmonary Resp Exam: Clear Bilaterally, Breath Sounds Equal, No Distress, Decreased Bases Gastrointestinal/Abdomen GI Exam: Soft, Non-Tender, Bowel Sounds Present, Distended Extremeties Extremities Exam: Trace Edema Neurologic Neuro Exam: Alert, Awake, Oriented Psychiatric Psych Exam: Appropriate Responses Assessment/Plan Assessment Summary: Transplant Kidney Status Problem List: (1) Kidney transplant status, cadaveric Plan: Post Renal Transplant almost 2 months ago. Creatinine is better, now 1.2. On Tacrolimus 2 mg q 12, Prednisone 5 mg and Myfortic 720 Vit D def and Hyperparathyroidism start Vit D 5000 units. CMV antigen infection GI consulted increase Valcyte to 900 mg bid. Patient now for D/C home, Prograf level is PND. To follow in Transplant clinic on Tuesday. (2) Hypotension Plan: Corrected by giving him IV fluids (3) Dehydration Plan: On IV hydration (4) MRSA (methicillin resistant staph aureus) culture positive Plan: in wound off Zyvox Problem Qualifiers (1) Hypotension: Qualified Code: I95.9 - Hypotension, unspecified hypotension type Peggy Salamanca MD Jun 12, 2016 11:35
--- NOTE | 2016-06-12 12:59 | HHI.DS ---
Discharge Summary Admission Date Jun 07, 2016 at 13:11 Discharge Date: Jun 12, 2016 Admitting Diagnosis dehydration, hypotension, status post kidney transplant (1) Abdominal pain Diagnosis: Principal Plan: Pain better controlled. Reports formed BM. Xray abdomen 06/08 showed "air in throughout the small and large bowel likely related to ileus. "Low PO4 and CMV contributing but must also consider adhesions. CMV associated with ileus. Given significant improved pain, patient having bowel movement, he can continue medical treatment at home. Tolerating regular basic diet. -DC home today -Valcyte 900 mg po bid -Percocet 5/325mg 1 tabs PO every 6 hours prn sever pain -Miralax 17 gm qd -Reglan 5 mg po tid -Protonix 20 mg po daily -Follow up with Dr. Nicole within 1 week (2) Constipation Diagnosis: Principal Plan: Ileus. Patient has been having overflow diarrhea during much of hospital course but now having formed stool. -plan as above (3) Nausea and vomiting Diagnosis: Principal Plan: New since last night, 06/09. Related to ileus. -plan as above (4) MRSA (methicillin resistant staph aureus) culture positive Plan: Kidney transplant surgical incision site was cultured on 06/07/16 on the positive for MRSA, resistant to cefazolin, Rocephin, erythromycin, levofloxacin , oxacillin, and pen G. Initially started on Zyvox but switched to oral therapy. Per most recent ID recs, patient to complete Doxycycline x 7 days. -Patient is afebrile and notes no pain or symptoms related to wound -Doxycycline 100 mg po bid x 4 days to complete 7 days therapy (5) Dehydration Plan: On admission, BP within normal limits, no reflex tachycardia noted, low concern for sepsis given normal vitals and no leukocytosis. Lactic acid 1.1 on admission. Decreased PO intake x 1 week, with now resolved diarrhea on admission. Differential includes possible gastroenteritis vs GI adverse rxn to mycophenolate vs ileus. Patient received 2L bolus in the ED. -Continue NS at 100 mls/hr -Zofran prn -C Diff ordered, not likely positive given more likely diagnosis of constipation with overflow -Wound culture positive for MRSA - no history of MRSA documented in EMR or by history; ID consulted to assist in management of antibiotic regimen -CBC, CMP, Mg, Phos -PT consult given patient having dizziness prior to admission (6) Hypotension Plan: Resolved. No hypotension since presentation to the ED with patient with systolic BP 70s in ambulatory office. Patient s/p 2L total bolus in ED, now on 100cc/hr. BP has been 140s/80s since admission. -Monitor vitals -PRN clonidine 0.1mg PO PRN SBP.160/DBP>90 (7) Status post kidney transplant Plan: Left Kidney Transplant April 06, [address] Nicole. Relatively immunocompromised state on immunosuppressive meds. Kidney US showing patent renal artery and veins. GFR stable at 62, improving. -Consult nephrology, monitoring tacrolimus level, appreciate recs. -Continue transplant meds: Mycophenolate, Prednisone, Tacrolimus. Valcyte increased to 900 mg po bid given CMV infection. Bactrim to prevent PCP. (8) Atrial fibrillation Plan: Chart review with no clear hx of A fib. EKG 04/06/16 with no A fib. Supposedly having A fib during dialysis in the past. Patient with history of CABG. BP can tolerate BB. -Continue Metoprolol 50 mg PO BID -Continue Aspirin -Clonidine 0.1 mg PO q6h PRN BP > 160/90 (9) Thrombocytopenia Plan: Improving. Stable from 06/03. Possible related to Valcyte. No active hemorrhage. -monitor CBC -Hold Heparin (10) LFT elevation Plan: Possibly due to ileus, possibly related to hepatotoxicity 2/2 medications vs ileus vs CMV. Patient not obese, alcoholic and recent negative hepatitis labs in January 2016. -Monitor LFTs outpatient per PCP (11) Nutrition, metabolism, and development symptoms Plan: Fluids: HLIV Electrolytes: Monitor and replete. Phosphorus is 1.9 this morning. Replete with IV Sodium PO4 30 mmol x 1. Nutrition: Clear liquid, advance as tolerated DVT Prophylaxis: Hold Heparin given thrombocytopenia, SCDs. GI Prophylaxis: Protonix 20mg PO daily wdw Dr. Salgado. Brief History Patient is a 45 yo M, hx of lupus nephropathy s/p transplant x 2, most recently as Apr 06, sent to the ED by Dr. Nicole for hypotension in office. He reports having tightness in his stomach x 5 days. He then noticed that he was not able to tolerate po intake. He has not tolerated anything other than sips of water. He felt as though he was getting constipated so attempted treatment with Miralax without relief. Home health nurse checked on him on Tuesday and gave enema, productive of regular sized bowel movement. Since that time, he has continued to have small clear-brownish watery stool. No bloody but foul smelling stools. Patient went to see Dr. Chacko, who saw that patient was hypotensive to systolic 70s; sent patient to the ED. Patient had been experiencing dizziness, fatigue, weakness, decreased appetite. It has been almost 1 week since last full meal. He has attempted drinking Ensure once daily but had some difficulty. Eating a Frostie last night resulted in nausea and vomiting after only a couple of bites. No fainting but dizzy starting this morning when he awakened and got ready for doctor appt, now resolved. He has been taking immunosuppressant medication as prescribed and continues to have unchanged urine output, no hematuria. The incision for the kidney transplant is over the LLQ, healing but has area that is still not completely healed; he had vito removed last week and now incision covered with Steri-strips. CBC/BMP: 06/12/16 0435 06/12/16 0435 Significant Findings Laboratory Tests Test 06/09/16 06/10/16 06/10/16 06/10/16 22:43 05:09 13:10 20:41 Chloride Level 112 MEQ/L 111 MEQ/L 111 MEQ/L 111 MEQ/L (98-107) (98-107) (98-107) (98-107) Carbon Dioxide Level 20.9 MEQ/L 20.3 MEQ/L (21.0-32.0) (21.0-32.0) Blood Urea Nitrogen 20 MG/DL (7-18) 19 MG/DL (7-18) 19 MG/DL (7-18) Creatinine 1.40 MG/DL 1.34 MG/DL 1.53 MG/DL 1.42 MG/DL (0.60-1.30) (0.60-1.30) (0.60-1.30) (0.60-1.30) Estimat Glomerular Filtration 54 ML/MIN (>89) 57 ML/MIN (>89) 49 ML/MIN (>89) 53 ML/MIN (>89) Rate Red Blood Count 4.39 MIL/MM3 (4.50-5.90) Hemoglobin 12.2 GM/DL (13.0-17.0) Hematocrit 38.5 % (39.0-51.0) Mean Corpuscular Hemoglobin 31.7 % Concent (32.0-36.0) Platelet Count 90 TH/MM3 (150-450) Monocytes (%) (Auto) 8.7 % (0.0-8.0) Platelet Estimate LOW (NORMAL) Ovalocytes 1+ (NORMAL) Phosphorus Level 1.4 MG/DL 2.4 MG/DL 1.7 MG/DL (2.5-4.9) (2.5-4.9) (2.5-4.9) Potassium Level 5.5 MEQ/L (3.5-5.1) 25-Hydroxy Vitamin D Total 14.9 ng/ML (30-100) Parathyroid Hormone (Intact) 348.3 PG/ML (12.4-76.8) Test 06/12/16 04:35 Red Blood Count 4.29 MIL/MM3 (4.50-5.90) Hemoglobin 11.9 GM/DL (13.0-17.0) Hematocrit 37.3 % (39.0-51.0) Platelet Count 106 TH/MM3 (150-450) Band Neutrophils % 7 % (0-6) Platelet Estimate LOW (NORMAL) Ovalocytes 1+ (NORMAL) Chloride Level 112 MEQ/L (98-107) Carbon Dioxide Level 19.9 MEQ/L (21.0-32.0) Estimat Glomerular Filtration 62 ML/MIN (>89) Rate Random Glucose 68 MG/DL (74-106) Phosphorus Level 1.9 MG/DL (2.5-4.9) Aspartate Amino Transf 73 U/L (15-37) (AST/SGOT) Alanine Aminotransferase 109 U/L (12-78) (ALT/SGPT) Alkaline Phosphatase 134 U/L (45-117) Total Protein 5.9 GM/DL (6.4-8.2) Albumin 3.0 GM/DL (3.4-5.0) Imaging Last Impressions Abdomen X-Ray 06/10/16 0000 Signed Impressions: Service Date/Time: May 10:19 - CONCLUSION: No acute disease. Spencer Carlson MD Abdomen/Pelvis CT 06/07/16 1048 Signed Impressions: Service Date/Time: Tuesday, June 07, 2016 11:10 - CONCLUSION: 1. Transplanted kidneys in the pelvis bilaterally. The left transplanted kidney has a grossly normal configuration. The right transplanted kidney is heavily calcified and likely nonfunctional. 2. Mild 3.2 cm abdominal aortic aneurysm. 3. Mild umbilical hernia containing only mesenteric fat. 4. Grade I anterior spondylolisthesis of L5 on S1 secondary to pars defects. 5. Minimal suspected atelectasis at the right lung base. Spencer Carlson MD Renal Ultrasound 06/07/16 0000 Signed Impressions: Service Date/Time: Tuesday, June 07, 2016 11:32 - CONCLUSION: Mild prominence to the collecting system. Patent renal artery and veins. Werner Joyner MD FACR PE at Discharge GENERAL: Well-appearing, well-nourished male. Patient is actively vomiting during exam. SKIN: Warm and dry. No obvious rashes, ecchymoses, or lesions. There is a vertical surgical scar on the thorax, healed RLQ kidney transplant scar. LLQ kidney transplant scar examined. There is and open approximately 3-5 centimeter area in the middle; the rest of the incision is closed. The wound is packed. No active drainage. AV fistula over left upper extremity. HEAD: Atraumatic. Normocephalic. EYES: Pupils equal and round. No scleral icterus. No injection or drainage. ENT: No nasal bleeding or discharge. Mucous membranes pink and moist. NECK: Trachea midline. No JVD. CARDIOVASCULAR: Regular rate and rhythm. No obvious murmurs on exam. RESPIRATORY: No accessory muscle use. Clear to auscultation. Breath sounds equal bilaterally. GASTROINTESTINAL: Abdomen soft, mildly tender to palpation over the epigastric area. Bowel sounds are hyperresonant. No distension or rebound. MUSCULOSKELETAL: Extremities without clubbing, cyanosis, or edema. No obvious deformities. NEUROLOGICAL: Awake and alert. No obvious cranial nerve deficits. Motor grossly within normal limits. Normal speech. Normal gait. Hospital Course Patient admitted for abdominal pain related to suspected ileus. Given hx of renal transplant, patient immunosuppressant meds continued. Patient having c/o diarrhea so C Diff ordered, returning negative. Imaging as above, significant for ileus and post-transplant changes. He has been prescribed to receive multiple forms of laxative including MiraLAX, sorbitol 4 times a day, Kitty- Colace 2 test twice a day, and lactulose. He is the sorbitol last night. ID consulted, for wound culture, positive for MRSA; patient initially given Zyvox, then switched to Doxycycline to be continued x 7 days. CMV was ordered given patient having ileus, found to be positive and Valcyte dose was increased. Prior to discharge, patient agreeing to Go-Lytly and Reglan, having formed stool on day of discharge. He was deemed stable for discharge home, to have follow up with Dr. Nicole. Pt Condition on Discharge: Good Discharge Disposition: Discharge Home Discharge Instructions DIET: Follow Instructions for: As Tolerated, No Restrictions Activities you can perform: Weight Bearing as Tiara Follow up Referrals: Nephrology - 1 Week with juju Physician - 1 Week New Medications: Metoclopramide (Reglan) 5 Mg Tab 5 MG PO TIDAC #30 Ref 0 TAB Doxycycline Hyclate (Doxycycline Hyclate) 100 Mg Cap 100 MG PO BID #8 CAP Hydrocodone-Acetaminophen (Hydrocodone-Acetaminophen) 5-325 mg Tab 1 TAB PO Q6HR PRN pain 5-10 #20 TAB Pantoprazole (Protonix) 20 Mg Tab 20 MG PO DAILY #20 TAB Polyethylene Glycol 3350 Powder (Polyethylene Glycol 3350 Powder) 17 Gm Pow 17 GM PO DAILY #20 PACK Sulfamethoxazole-Trimethoprim (Bactrim DS) 800-160 Mg Tab 1 TAB PO MoWeFr@09 #15 TAB Valganciclovir (Valcyte) 450 Mg Tab 900 MG PO BID #40 TAB Continued Medications: Aspirin (Aspirin) 81 Mg Tabdr 81 MG PO DAILY TAB Metoprolol Tartrate (Metoprolol Tartrate) 25 Mg Tab 50 MG PO BID #60 Ref 0 TAB Mycophenolate (Myfortic) 180 Mg Tab 720 MG PO BID Immunosuppression #240 Ref 0 TAB Prednisone (Deltasone) 20 Mg Tab 5 MG PO DAILY #30 Ref 0 TAB Tacrolimus (Tacrolimus) 1 Mg Cap 3 MG PO Q12H Prevent Transplant Reject #180 Ref 0 CAP Discontinued Medications: Sulfamethoxazole-Trimethoprim (Bactrim DS) 800-160 Mg Tab 1 TAB PO Infection Ref 0 TAB Valganciclovir (Valcyte) 450 Mg Tab 450 MG PO DAILY Mgmt Viral Infection #30 Ref 0 TAB Kelli Mora MD Jun 12, 2016 12:59
[2016-06-12] MEDS ORDERED: MYCOPHENOLATE SODIUM 360 MG DELAYED RELEASE TAB PO SCH (18:00)
--- NOTE | 2016-06-14 08:15 | MB ---
cc: SYLVESTER ROMANO M.D., FRANKLYN F. MD DATE OF CONSULTATION 06/11/[address] Sylvester Romano REASON CMV colitis/infection. Patient status post kidney transplant. HISTORY OF PRESENT ILLNESS This is a 45-year-old white male who was admitted to the hospital on 06/07. The patient was sent to the emergency department with gastrointestinal complaints. He had a blood pressure of 70 systolic before being sent to the emergency department and was noted to be dehydrated and was feeling generally weak. The patient tells me that he was feeling run down for about a couple of weeks before admission and he felt "backed up" from a bowel movement standpoint. He was evaluated and admitted to the hospital. The patient has been afebrile since admission. He was found to have an abdominal wound infection at the site of the surgery at the left abdomen where the kidney transplant was performed. The culture of that wound came back with MRSA and he received a course of antibiotics for that. The culture was from 06/07/2016. Further workup was performed and the patient had CMV testing sent on 06/10 and it came back showing a very high titer of 158,000. Prior CMV testing in January 2016 showed undetectable levels. The patient states that he has had periodic diarrhea and has been receiving medicines for bowel movement and also today he had a soap suds edema. He states that his appetite has been very poor but he was able to eat some foot today. He was started on an ganciclovir today. This consultation is requested to address the CMV infection. The patient denies having blood in the stools in the past. He denies abdominal cramping. He was also seen by GI specialty in consultation today. This patient has had renal transplantation in March 2016. Prior to that he had a kidney transplant in 1997 which lasted for 13 years and then he was put on hemodialysis for 5 years. PAST MEDICAL HISTORY 1. Systemic lupus erythematosus. 2. End-stage renal disease secondary to lupus. 3. Coronary artery disease. 4. Atrial fibrillation. 5. Coronary bypass graft x 2. 6. Kidney transplantation x 2. 7. Colonoscopy. ALLERGIES No known drug allergies. MEDICATIONS 1. Vitamin D3. 2. Valganciclovir p.o. 3. Prograf. 4. Reglan. 5. MiraLax. 6. Doxycycline. 7. Bactrim p.o. three times per week. 8. Protonix. 9. Leighton 5 p.r.n. 10. Kitty-Colace. 11. Prednisone. 12. Aspirin. 13. Lopressor. 14. Mycophenolate. SOCIAL HISTORY Positive tobacco use. Positive alcohol use. No illicit drugs. FAMILY HISTORY Noncontributory. REVIEW OF SYSTEMS CONSTITUTIONAL: No fever or chills. HEAD, EYES, EARS, NOSE, AND THROAT: No visual blurring or diplopia. No difficulty swallowing. No soreness of the throat. No nasal bleeding or discharge. NECK: No neck swelling. CARDIOVASCULAR: No palpitation or chest pain. RESPIRATORY: No cough or shortness of breath. GASTROINTESTINAL: Significant for diarrhea. Denies abdominal pain and denies current nausea. GENITOURINARY: No urgency, frequency or dysuria. HEMATOPOIETIC: No easy bruising or bleeding. MUSCULOSKELETAL: No joint pain or muscle pains or aches. ENDOCRINE: No polyuria, polydipsia. NEUROLOGIC: No problems with gait or headaches. INTEGUMENTARY: No skin rash or itching. PHYSICAL EXAMINATION GENERAL: This is a well-developed, well-nourished male in no acute distress. He is awake and alert and oriented. VITAL SIGNS: Temperature of 97.6, BP 101/80, respirations 14, heart rate 64. HEENT: Head atraumatic. Extraocular movements grossly intact. Pupils reactive to light. No icterus. Oropharynx - no visible lesions. NECK: Supple. No adenopathy. LUNGS: Clear to auscultation. HEART: Regular S1-S2. No murmurs, rubs or gallops. ABDOMEN: Bowel sounds present, soft, nontender. The left lower abdomen has a tiny opening along a surgical incision which is packed with gauze. It is very tiny packing into the opening and there is no drainage visible on palpation of the area. There is no erythema located at that location. RECTAL: Not performed. EXTREMITIES: No clubbing, cyanosis or edema. LEFT UPPER EXTREMITY: Has an AV fistula and it has a good bruit. SKIN: No rash. NEURO: Nonfocal. The patient is alert and oriented. PSYCHIATRIC: The patient is calm and cooperative. LABORATORY DATA WBC 5.5, platelet 90,000, hemoglobin 12.2, differential of 63% neutrophils, 25% lymphocytes, 8% monocytes. Creatinine 1.42, BUN 18, estimated GFR 53, sodium 141. IMPRESSION Elevated CMV titer in a patient status post renal transplantation and presenting with hypotension and diarrhea and features suggesting dehydration and also elevation in liver function tests on presentation. 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 However, at this point colitis cannot be definitively determined unless the patient has a colonoscopy. He has no significant loose stool production at this time to send for testing. CT scan of the abdomen on admission did not report any evidence of colitis. The patient had negative CMV titers in January 2016. This suggests recent infection. RECOMMENDATIONS Continue to treat with valganciclovir as you are doing. I suggest treating for 21 days at dose of 900 mg every 12 hours for 21 days and after that if the titer are improved, scale down to once a day treatment until such time that the titers become negative. Thank you this consultation. Further recommendations will be given if necessary but I do not think it is necessary for the patient to be followed by me in the hospital unless he develops complication from the CMV. Jacob Smith MD FD/EDIN /3:15 PM /7:55 AM
== END 2016-06-12 12:27 | disposition home or self-care (01) | DRG 863 ==
LOC: NEPA 10:26 → NEDA 13:11 → N07A 17:12
PROVIDERS: ADMIT Family Medicine; ATTEND Family Medicine
DX: T81.4XXA Infection following a procedure, initial encounter (principal); B25.8 Other cytomegaloviral diseases; N17.9 Acute kidney failure, unspecified; I95.89 Other hypotension; M32.14 Glomerular disease in systemic lupus erythematosus; K56.0 Paralytic ileus; Z94.0 Kidney transplant status; E86.0 Dehydration; E83.42 Hypomagnesemia; E83.39 Other disorders of phosphorus metabolism; I71.4 Abdominal aortic aneurysm, without rupture; M43.17 Spondylolisthesis, lumbosacral region; I25.10 Atherosclerotic heart disease of native coronary artery without angina pectoris; K42.9 Umbilical hernia without obstruction or gangrene; F17.210 Nicotine dependence, cigarettes, uncomplicated; I10 Essential (primary) hypertension; B95.62 Methicillin resistant Staphylococcus aureus infection as the cause of diseases classified elsewhere; Y83.0 Surgical operation with transplant of whole organ as the cause of abnormal reaction of the patient, or of later complication, without mention of misadventure at the time of the procedure; Z95.1 Presence of aortocoronary bypass graft
CPT/HCPCS: 36415; 74000; 74020; 74176; 76776; 80048; 80053; 80197; 82306; 82436; 83605; 83690; 83735; 83970; 84100; 84133; 84300; 85007; 85025; 85027; 85610; 86403; 86850; 86900; 86901; 87040; 87070; 87147; 87186; 87205; 87497; 94150; 96361; 96365; 99024; J1644; J2270; J2405; J2765; J3475; J7030; J7040; J7050; J7507; J7512; J7518

== ENCOUNTER 2017-02-18 20:06 | Inpatient (IN) | payer MEDICARE, OTHER ==
[~2017-02-18] VITALS: Ht 177.8 cm; Wt 91.5 kg
[2017-02-18 20:00] VITALS: BP 125/73; PULSE 121; RESP 20; TEMP 98.8; O2SAT 95
[~2017-02-18 20:06] MED LIST changes: +ASPI1TAB69 PO; -DILT240C36 PO; -DOCU100C PO; +DOXY100C PO; +HYDR-3516 PO; -NYST1000 SWISH-SWAL; +PANT20 PO; +POLY17S PO; +REGL5TAB PO; -TAMS5CAP PO
[2017-02-18 20:15] VITALS: BP 143/72; PULSE 125; RESP 18; TEMP 98.6; O2SAT 95
[2017-02-18 20:26] VITALS: RESP 18; O2SAT 95
[2017-02-18] MEDS ORDERED: SODIUM CHLORIDE 0.9% FLUSH 10 ML FLUSH IVF PRN (20:30)
[2017-02-18] MEDS ORDERED: PRAV20TA2 PO (20:36)
[2017-02-18] MEDS ORDERED: SENS60TA PO (20:36)
[2017-02-18] MEDS ORDERED: CARD120T4 PO (20:36)
[2017-02-18] MEDS ORDERED: ASPI-516 CHEW (20:36)
--- NOTE | 2017-02-18 20:40 | PD ---
HPI Chief Complaint: Cardiac Complaint Time Seen by Provider: 20:21 Travel History International Travel<30 days: No Contact w/Intl Traveler<30days: No Traveled to known affect area: No History of Present Illness HPI Patient is a 46-year-old male presents the emergency department as a transfer accepted by Dr. Romano. Patient has a history of kidney transplant performed at this facility in April 05, 2016 for left lower quadrant. Patient states she's been having some flulike symptoms including nausea and vomiting he also states been having some intermittent left lower quadrant abdominal pain. An outside facility he had CAT scan of his abdomen which did show an edematous-appearing transplant kidney in the left lower quadrant as well as what appears to be an acute kidney injury creatinine of 3.78. His last creatinine at this facility was on 01/10/2017 was 1.47. Patient was also found to be nature fibrillation RVR was started on Cardizem drip which he is continuing in this emergency department. Patient also relates a history that earlier this year he was diagnosed with CMV infection and was admitted to the hospital for several days. He states he has been taking his CellCept as well as his tacrolimus. Initially loss his kidney functions, dictation of lupus. PFSH Past Medical History Autoimmune Disease: Yes (LUPUS) Heart Rhythm Problems: Yes (A FIB DURING DIALYSIS A FEW TIMES) Cancer: No Cardiac Catheterization: No Cardiovascular Problems: Yes (CABG TRIPLE) High Cholesterol: Yes Chest Pain: Yes Congestive Heart Failure: No Coronary Artery Disease: Yes Diabetes: No Endocrine: No Genitourinary: Yes Hypertension: Yes (TAKES CLONIDINE AND LOPRESSOR) Musculoskeletal: No Neurologic: No Psychiatric: No Reproductive: No Respiratory: No Myocardial Infarction: Yes Renal Failure: Yes Past Surgical History Abdominal Surgery: No Cardiac Surgery: Yes (BYPASS SURGERY 2 TIMES) Coronary Artery Bypass Graft: Yes Eye Surgery: No Genitourinary Surgery: Yes Thoracic Surgery: No Other Surgery: Yes (RT KIDNEY TRANSPLANT) Social History Alcohol Use: Yes Tobacco Use: Yes Substance Use: No Allergies-Medications (Allergen,Severity, Reaction): Coded Allergies: prochlorperazine (Unverified Allergy, Severe, 02/18/17) *MDRO Multi-Drug Resistant Organism (Verified Adverse Reaction, Unknown, 02/18/17) 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 Reported Meds & Prescriptions Reported Meds & Active Scripts Active Polyethylene Glycol 3350 Powder (Polyethylene Glycol) 17 Gm Pow 17 Gm PO DAILY Reported Sensipar (Cinacalcet) 60 Mg Tab 60 Mg PO DAILY Pravastatin 20 Mg Tab 20 Mg PO DAILY Cardizem (Diltiazem HCl) 120 Mg Tab 240 Mg PO DAILY Aspirin 81 Mg Chew 81 Mg CHEW DAILY Myfortic (Mycophenolate Sodium) 180 Mg Tab 720 Mg PO BID Tacrolimus 1 Mg Cap 3 Mg PO Q12H Metoprolol Tartrate 25 Mg Tab 50 Mg PO BID Deltasone (Prednisone) 20 Mg Tab 5 Mg PO DAILY Review of Systems Except as stated in HPI: all other systems reviewed are Neg Physical Exam Narrative GENERAL: Well-developed well-nourished, nontoxic appearance. SKIN: Focused skin assessment warm/dry. HEAD: Atraumatic. Normocephalic. EYES: Pupils equal and round. No scleral icterus. No injection or drainage. ENT: No nasal bleeding or discharge. Mucous membranes pink and moist. NECK: Trachea midline. No JVD. CARDIOVASCULAR: Regular rate and rhythm. No murmur appreciated. RESPIRATORY: No accessory muscle use. Clear to auscultation. Breath sounds equal bilaterally. GASTROINTESTINAL: Abdomen soft, non-tender, nondistended. Hepatic and splenic margins not palpable. No tenderness over the graft site. MUSCULOSKELETAL: No obvious deformities. No clubbing. No cyanosis. No edema. NEUROLOGICAL: Awake and alert. No obvious cranial nerve deficits. Motor grossly within normal limits. Normal speech. PSYCHIATRIC: Appropriate mood and affect; insight and judgment normal. Data Data Last Documented VS Vital Signs Date Time Temp Pulse Resp B/P (MAP) Pulse Ox O2 Delivery O2 Flow Rate FiO2 02/18/17 20:26 18 95 Room Air 02/18/17 20:26 120 02/18/17 20:15 98.6 143/72 (95) Orders Orders Electrocardiogram (02/18/17 20:21) Complete Blood Count With Diff (02/18/17 20:21) Comprehensive Metabolic Panel (02/18/17 20:21) Magnesium (Mg) (02/18/17 20:21) Prothrombin Time / Inr (Pt) (02/18/17 20:21) Act Partial Throm Time (Ptt) (02/18/17 20:21) Troponin I (02/18/17 20:21) Chest, Single Ap (02/18/17 20:21) Ecg Monitoring (02/18/17 20:21) Iv Access Insert/Monitor (02/18/17 20:21) Oximetry (02/18/17 20:21) Oxygen Administration (02/18/17 20:21) Sodium Chloride 0.9% Flush (Ns Flush) (02/18/17 20:30) Us Kidney / Transplant (02/18/17 ) Methylprednisolone So Succ Inj (Solumedr (02/18/17 21:15) Tacrolimus (Prograf) (02/18/17 21:15) Tacrolimus (Prograf) (02/19/17 06:00) Mycophenolate Mofetil (Cellcept) (02/18/17 21:15) Mycophenolate Mofetil (Cellcept) (02/19/17 06:00) Mycophenolate Mofetil (Cellcept) (02/19/17 18:00) Cmv Dna Pcr Quantitative (02/19/17 06:00) Complete Blood Count With Diff (02/19/17 06:00) Complete Blood Count With Diff (02/20/17 06:00) Complete Blood Count With Diff (02/21/17 06:00) Renal Functional Panel (02/20/17 06:00) Renal Functional Panel (02/21/17 06:00) Tacrolimus (Fk506) Prograf (02/19/17 05:00) Tacrolimus (Fk506) Prograf (02/20/17 05:00) Tacrolimus (Fk506) Prograf (02/21/17 05:00) Magnesium (Mg) (02/19/17 06:00) Phosphorus (Po4) (02/19/17 06:00) Urinalysis - C+S If Indicated (02/18/17 21:13) Urine For Eosinophils (02/18/17 21:13) Sodium Chlor 0.9% 1000 Ml Inj (Ns 1000 M (02/18/17 21:30) Vital Signs (Adult) Q15MX4,Q4H (02/18/17 21:48) Supervisor Record Press / Telemetry THERESE.Q8H (02/18/17 21:48) Cardiac Rhythm THERESE.Q8H (02/18/17 21:48) Notify Dr: Other (02/18/17 21:48) Diltiazem Inj (Cardizem Inj) (02/18/17 22:00) Admit Order (Ed Use Only) (02/18/17 ) Comprehensive Metabolic Panel (02/19/17 06:00) Phosphorus (Po4) (02/19/17 06:00) Labs Laboratory Tests Test 02/18/17 20:41 White Blood Count 18.6 TH/MM3 Red Blood Count 4.30 MIL/MM3 Hemoglobin 12.3 GM/DL Hematocrit 38.7 % Mean Corpuscular Volume 90.0 FL Mean Corpuscular Hemoglobin 28.6 PG Mean Corpuscular Hemoglobin Concent 31.8 % Red Cell Distribution Width 14.9 % Platelet Count 140 TH/MM3 Mean Platelet Volume 9.8 FL Neutrophils (%) (Auto) 89.4 % Lymphocytes (%) (Auto) 4.6 % Monocytes (%) (Auto) 5.8 % Eosinophils (%) (Auto) 0.0 % Basophils (%) (Auto) 0.2 % Neutrophils # (Auto) 16.6 TH/MM3 Lymphocytes # (Auto) 0.9 TH/MM3 Monocytes # (Auto) 1.1 TH/MM3 Eosinophils # (Auto) 0.0 TH/MM3 Basophils # (Auto) 0.0 TH/MM3 CBC Comment DIFF FINAL Differential Comment Prothrombin Time 12.0 SEC Prothromb Time International Ratio 1.1 RATIO Activated Partial Thromboplast Time 34.5 SEC Blood Urea Nitrogen 41 MG/DL Creatinine 3.12 MG/DL Random Glucose 105 MG/DL Total Protein 6.5 GM/DL Albumin 2.5 GM/DL Calcium Level 7.8 MG/DL Magnesium Level 1.1 MG/DL Alkaline Phosphatase 79 U/L Aspartate Amino Transf (AST/SGOT) 32 U/L Alanine Aminotransferase (ALT/SGPT) 18 U/L Total Bilirubin 0.5 MG/DL Sodium Level 137 MEQ/L Potassium Level 4.4 MEQ/L Chloride Level 109 MEQ/L Carbon Dioxide Level 18.8 MEQ/L Anion Gap 9 MEQ/L Estimat Glomerular Filtration Rate 21 ML/MIN Troponin I 0.04 NG/ML [facility] Medical Decision Making Medical Screen Exam Complete: Yes Emergency Medical Condition: Yes Differential Diagnosis Acute kidney injury, A. fib RVR, acute kidney transplant rejection. Narrative Course Patient roomed in the emergency department, discussed with Dr. Chaparro who recommends admission to medical service and he'll see in consultation. He has no further recommendations at this time except for control of the patient's heart rate management of his other medical disease. Discussed with Dr. Evans for admission. Diagnosis Primary Impression: JACKIE (acute kidney injury) Additional Impression: Atrial fibrillation with RVR Admitting Information Admitting Physician Requests: Admit Condition: Stable Axel Newberry MD Feb 18, 2017 20:40
[2017-02-18 21:04] LABS: AUTOMATED NEUTROPHIL # 16.6 TH/MM3 (1.8-7.7); BASOPHIL % 0.2 % (0.0-2.0); HEMATOCRIT 38.7 % (39.0-51.0); HEMO FLAGS DIFF FINAL; LYMPH % 4.6 % (9.0-44.0); LYMPHOCYTE # 0.9 TH/MM3 (1.0-4.8); MEAN CORPUSCULAR HEMOGLOBIN 28.6 PG (27.0-34.0); MEAN CORPUSCULAR HGB CONC 31.8 % (32.0-36.0); MONO % 5.8 % (0.0-8.0); NEUT % 89.4 % (16.0-70.0); PLATELET COUNT 140 TH/MM3 (150-450); RED CELL DISTRIBUTION WIDTH 14.9 % (11.6-17.2); WHITE BLOOD COUNT 18.6 TH/MM3 (4.0-11.0)
--- NOTE | 2017-02-18 21:05 | RADRPT ---
EXAM DATE/TIME: 02/18/2017 20:46 [facility] COMPARISON: CHEST SINGLE AP, April 06, 2016, 8:42. CHEST SINGLE AP, April 07, 2016, 9:02. INDICATIONS : Chest pain. MEDICAL HISTORY : Cardiovascular disease. SURGICAL HISTORY : CABG. ENCOUNTER: Initial ACUITY: 1 day PAIN SCORE: 7/10 LOCATION: Left chest FINDINGS: There is mild prominence of the central bronchopulmonary markings, but no significant peribronchial t hickening. No focal areas of consolidation. The hemidiaphragms are well delineated. The heart is s table in size, mildly enlarged. Evidence of prior median sternotomy and CABG. CONCLUSION: Mild central pulmonary vascular congestion. No alveolar opacities seen. Gabe Nixon MD on February 18, 2017 at 21:02 Board Certified Radiologist. This report was verified electronically.
[2017-02-18] MEDS ORDERED: TACROLIMUS 1 MG CAP PO ONE (21:15)
[2017-02-18] MEDS ORDERED: methylPREDNISolone SOD SUCC 125 MG/2 ML VIAL IV PUSH ONE (21:15)
[2017-02-18] MEDS ORDERED: MYCOPHENOLATE MOFETIL 500 MG TAB PO ONE (21:15)
[2017-02-18 21:17] LABS: APTT (PATIENT) 34.5 SEC (24.3-30.1); INTERNATIONAL NORMALIZED RATIO 1.1 RATIO
[2017-02-18 21:25] LABS: ALT (GPT) 18 U/L (12-78)
[2017-02-18 21:29] LABS: ALKALINE PHOSPHATASE 79 U/L (45-117); TOTAL BILIRUBIN ADULT 0.5 MG/DL (0.2-1.0)
[2017-02-18] MEDS ORDERED: SODIUM CHLOR 0.9% 1000 ML INJ 1,000 ML IV SCH (21:30)
[2017-02-18 21:35] LABS: ANION GAP 9 MEQ/L (5-15); AST (GOT) 32 U/L (15-37); BICARBONATE 18.8 MEQ/L (21.0-32.0); BLOOD UREA NITROGEN 41 MG/DL (7-18); CHLORIDE 109 MEQ/L (98-107); GLOMERULAR FILTRATION RATE 21 ML/MIN (>89); MAGNESIUM 1.1 MG/DL (1.5-2.5); POTASSIUM 4.4 MEQ/L (3.5-5.1); SODIUM (NA) 137 MEQ/L (136-145)
[2017-02-18] MEDS: SODIUM CHLOR 0.9% 1000 ML INJ 1,000 ML IV SCH ×2 (21:48→22:03)
--- NOTE | 2017-02-18 21:52 | HHI.HP ---
HPI Service [facility] Hospitalists Primary Care Physician [facility] Admission Diagnosis Afib RVR, JACKIE, probable acute kidney rejection. Diagnoses: (1) Atrial fibrillation with RVR Diagnosis: Principal (2) Renal transplant rejection Diagnosis: Principal (3) JACKIE (acute kidney injury) Diagnosis: Principal (4) Leukocytosis Diagnosis: Principal (5) Thrombocytopenia Diagnosis: Principal Travel History International Travel<30 Days: No Contact w/Intl Traveler <30 Da: No Traveled to Known Affected Are: No History of Present Illness This is a 46-year-old male with a PMH of Lupus, h/o Renal Transplant 04/05/16, A- fib, CAD s/p CABG, Hyperlipidemia and HTN who was transferred to the ER from [facility] under the care of Dr. Romano for likely renal transplant rejection. Pt presented to [place] w/ complaints of generalized fatigue, nausea/vomiting and LLQ pain. CT Abd/Pelvis from [place] w/ edematous appearing transplant kidney in LLQ, U/a negative for UTI. Also noted to be in A -fib w/ RVR, started on Cardizem gtt. Upon arrival to [place], BP 123/72, HR 125 in A. fib, O2 sat 94% on RA, Afebrile. WBC 18.6. Creatinine 3.12, previously 1.47 on 01/10/17. INR 1.1. UA pending. CXR with mild central pulmonary vascular congestion, no opacities seen. Renal US normal. Review of Systems Except as stated in HPI: all other systems reviewed are Neg ROS: 14 point review of systems otherwise negative. 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 No h/o DM or CAD Social History PAST SOCIAL HISTORY: Occasional alcohol. Positive for tobacco. Negative for drugs. Physical Exam Vital Signs Vital Signs Date Time Temp Pulse Resp B/P (MAP) Pulse Ox O2 Delivery O2 Flow Rate FiO2 02/18/17 20:26 18 95 Room Air 02/18/17 20:26 120 18 95 02/18/17 20:15 98.6 125 18 143/72 (95) 95 Physical Exam PE: GENERAL: Pleasant middle-aged male in no acute distress. HEENT: PERRLA, EOMI. No scleral icterus or conjunctival pallor. No lid lag or facial droop. CARDIOVASCULAR: Regular rate and rhythm. No obvious murmurs to auscultation. No chest tenderness to palpation. RESPIRATORY: No obvious rhonchi or wheezing. Clear to auscultation. Breath sounds equal bilaterally. GASTROINTESTINAL: Abdomen soft, tenderness to palpation LLQ, nondistended. BS normal. MUSCULOSKELETAL: Extremities without clubbing, cyanosis, or edema. No obvious deformities. NEUROLOGICAL: Awake, alert and oriented x4. No focal neurologic deficits. Moving both upper and lower extremities spontaneously. Laboratory Laboratory Tests Test 02/18/17 20:41 White Blood Count 18.6 Red Blood Count 4.30 Hemoglobin 12.3 Hematocrit 38.7 Mean Corpuscular Volume 90.0 Mean Corpuscular Hemoglobin 28.6 Mean Corpuscular Hemoglobin Concent 31.8 Red Cell Distribution Width 14.9 Platelet Count 140 Mean Platelet Volume 9.8 Neutrophils (%) (Auto) 89.4 Lymphocytes (%) (Auto) 4.6 Monocytes (%) (Auto) 5.8 Eosinophils (%) (Auto) 0.0 Basophils (%) (Auto) 0.2 Neutrophils # (Auto) 16.6 Lymphocytes # (Auto) 0.9 Monocytes # (Auto) 1.1 Eosinophils # (Auto) 0.0 Basophils # (Auto) 0.0 CBC Comment DIFF FINAL Differential Comment Prothrombin Time 12.0 Prothromb Time International Ratio 1.1 Activated Partial Thromboplast Time 34.5 Blood Urea Nitrogen 41 Creatinine 3.12 Random Glucose 105 Total Protein 6.5 Albumin 2.5 Calcium Level 7.8 Magnesium Level 1.1 Alkaline Phosphatase 79 Aspartate Amino Transf (AST/SGOT) 32 Alanine Aminotransferase (ALT/SGPT) 18 Total Bilirubin 0.5 Sodium Level 137 Potassium Level 4.4 Chloride Level 109 Carbon Dioxide Level 18.8 Anion Gap 9 Estimat Glomerular Filtration Rate 21 Troponin I 0.04 Result Diagram: 02/18/17204002/18/172040 Caprini VTE Risk Assessment Caprini VTE Risk Assessment: Mod/High Risk (score >= 2) Caprini Risk Assessment Model Point Value = 1 Point Value = 2 Point Value = 3 Point Value = 5 Age 41-60 Minor surgery BMI > 25 kg/m2 Swollen legs Varicose veins or History of unexplained or recurrent spontaneous Oral contraceptives or hormone replacement Sepsis (< 1 month) Serious lung disease, including pneumonia (< 1 month) Abnormal pulmonary function Acute myocardial infarction Congestive heart failure (< 1 month) History of inflammatory bowel disease Medical patient at bed rest Age 61-74 Arthroscopic surgery Major open surgery (> 45 min) Laparoscopic surgery (> 45 min) Malignancy Confined to bed (> 72 hours) Immobilizing plaster cast Central venous access Age >= 75 History of VTE Family history of VTE Factor V Leiden Prothrombin [id number] Lupus anticoagulant Anticardiolipin antibodies Elevated serum homocysteine Heparin-induced thrombocytopenia Other congenital or acquired thrombophilia Stroke (< 1 month) Elective arthroplasty Hip, pelvis, or leg fracture Acute spinal cord injury (< 1 month) Prophylaxis Regimen Total Risk Factor Score Risk Level Prophylaxis Regimen 0-1 Low Early ambulation 2 Moderate Order ONE of the following: *Sequential Compression Device (SCD) *Heparin 5000 units SQ BID 3-4 Higher Order ONE of the following medications: *Heparin 5000 units SQ TID *Enoxaparin/Lovenox 40 mg SQ daily (WT < 150 kg, CrCl > 30 mL/min) *Enoxaparin/Lovenox 30 mg SQ daily (WT < 150 kg, CrCl > 10-29 mL/min) *Enoxaparin/Lovenox 30 mg SQ BID (WT < 150 kg, CrCl > 30 mL/min) AND/OR *Sequential Compression Device (SCD) 5 or more Highest Order ONE of the following medications: *Heparin 5000 units SQ TID (Preferred with Epidurals) *Enoxaparin/Lovenox 40 mg SQ daily (WT < 150 kg, CrCl > 30 mL/min) *Enoxaparin/Lovenox 30 mg SQ daily (WT < 150 kg, CrCl > 10-29 mL/min) *Enoxaparin/Lovenox 30 mg SQ BID (WT < 150 kg, CrCl > 30 mL/min) AND *Sequential Compression Device (SCD) Assessment and Plan Problem List: (1) Atrial fibrillation with RVR ICD Code: I48.91 - Unspecified atrial fibrillation (2) Renal transplant rejection ICD Code: T86.11 - Kidney transplant rejection (3) JACKIE (acute kidney injury) ICD Code: N17.9 - Acute kidney failure, unspecified (4) Leukocytosis ICD Code: D72.829 - Elevated white blood cell count, unspecified (5) Thrombocytopenia ICD Code: D69.6 - Thrombocytopenia, unspecified Status: Acute Assessment and Plan A/P: 1. A-fib w/ RVR: h/o A-fib, found to be in RVR at [facility], started on Cardizem gtt, currently HR 110's. Continue Cardizem gtt, resume home medications, IVF for hydration. CXR w/ mild central pulm congestion, images reviewed by me. 2. Renal Transplant Rejection: h/o left renal transplant 04/05/16, c/o acute LLQ abdominal pain, CT Abd/Pelvis from [place] w/ edematous appearing transplant kidney in LLQ concerning for transplant rejection. S/p eval by Dr. Romano. Renal US normal. U/a pending. S/p Solu-Medrol, CellCept and Tacrolimus. 3. JACKIE: Creatinine 3.12, producing 1.47 on 01/10/17. Dr. Romano following, possible transplant rejection, U/a pending, repeat labs in am. 4. Leukocytosis: WBC 18.6, elevated neutrophil count, afebrile. Immunocompromised. Concern for infection. Start IV antibiotics. Check BK. 5. Thrombocytopenia: Acute. Platelets 140, previously 183 on 01/10/17. No active bleeding noted. Repeat labs in a.m. 6. DVT Prophylaxis: SCD/teds. 7. Social work for DC planning as needed. 8. Case discussed at length with ER physician. Physician Certification 2 Midnight Certification Type: Admission for Inpatient Services Order for Inpatient Services The services are ordered in accordance with Medicare regulations or non- Medicare payer requirements, as applicable. In the case of services not specified as inpatient-only, they are appropriately provided as inpatient services in accordance with the 2-midnight benchmark. Estimated LOS (days): 2 days is the estimated time the patient will need to remain in the hospital, assuming treatment plan goals are met and no additional complications. Post-Hospital Plan: Not yet determined Allyn Boyer MD Feb 18, 2017 21:52
[2017-02-18] MEDS ORDERED: LACTULOSE SYRUP 20 GM/30 ML CUP PO PRN (22:00)
[2017-02-18] MEDS ORDERED: SENNOSIDES 8.6 MG TAB PO PRN (22:00)
[2017-02-18] MEDS ORDERED: BISACODYL 10 MG SUPP RECTAL PRN (22:00)
[2017-02-18] MEDS ORDERED: MORPHINE SULFATE 4 MG/ML INJ IV PUSH PRN (22:00)
[2017-02-18] MEDS ORDERED: ACETAMINOPHEN 325 MG TAB PO PRN (22:00)
[2017-02-18] MEDS ORDERED: SODIUM CHLORIDE 0.9% FLUSH 10 ML FLUSH IV FLUSH PRN (22:00)
[2017-02-18] MEDS ORDERED: ONDANSETRON HCL 4 MG/2 ML VIAL IVP PRN (22:00)
[2017-02-18] MEDS ORDERED: MAGNESIUM HYDROXIDE SUSP 30 ML CUP PO PRN (22:00)
[2017-02-18 22:27] VITALS: BP 132/79; PULSE 116; RESP 20; O2SAT 94
[2017-02-18] MEDS: DILTIAZEM INJ 125 MG in SODIUM CHLORIDE 0.9% INJ 100 ML IV PRN (22:29)
--- NOTE | 2017-02-18 22:29 | RADRPT ---
EXAM DATE/TIME: 02/18/2017 21:29 [facility] COMPARISON: US KIDNEY / TRANSPLANT, June 07, 2016, 11:32. [facility], US RENAL TRANSPLANT, April 21, 2016ABDOMEN, KUB ONLY, April 21, 2016. INDICATIONS : Increased labs. MEDICAL HISTORY : Hypercholesterolemia. Hypertension. Lupus. CAD. Valvular heart disease. Afib. Renal disease and failu re. SURGICAL HISTORY : CABG. Nephrectomy. Bilateral kidney transplants. Gout removal from left elbow. Blood transfusions. ENCOUNTER: Subsequent ACUITY: 1 day PAIN SCORE: 0/10 LOCATION: Left lower quadrant MEASUREMENTS: TRANSPLANT KIDNEY: 13.5 x 5.9 x 6.2 cm LOCATION: Left lower quadrant. ARCUATE ARTERIES RESISTIVE INDEX: Upper - 0.7 Mid - 0.7 Lower - 0.7 MAIN RENAL ARTERY VELOCITY: (cm/sec): 147 MAIN RENAL VEIN: Patent EXTERNAL ILIAC ARTERY VELOCITY (cm/sec): 72 * NORMAL DOPPLER FINDINGS Arcuate arteries - RI = 0.6 - 0.8 Renal artery = under 200 cm/sec Renal vein = May be monophasic with continuous flow or demonstrate some pulsatility with cardiac cycl e FINDINGS: TRANSPLANT KIDNEY: Normal cortical thickness and echotexture. No hydronephrosis, stone, or mass. No peritransplant flu id collection. URINARY BLADDER: Weeks catheter. CONCLUSION: Normal sonographic evaluation of renal transplant. Gabe Nixon MD on February 18, 2017 at 22:25 Board Certified Radiologist. This report was verified electronically.
[2017-02-18 23:00] VITALS: BP 125/73; PULSE 121; RESP 20; TEMP 98.8; O2SAT 95
--- NOTE | 2017-02-18 23:48 | PD.CONS ---
HPI Service Nephrology Consult Requested By Dr. Boyer Reason for Consult Kidney transplant failure Primary Care Physician [facility] History of Present Illness Patient is a 46-year-old white male with history of SLE, hypertension who has received a second cadaveric kidney transplant at [facility] on his condition is a lot worse for the past week of flulike symptoms and initially had some cough and congestion A and he felt like care he is weak and tired lethargic having some sweating and low-grade fevers became in with these complaint at [place] and complained of both on and off pain at the left transplant., His urine output did drop his creatinine was about 3 and he was transferred. 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 Past Medical History Lupus, h/o Renal Transplant on 04/06/16 A-fib, CAD s/p CABG, Hyperlipidemia and HTN CMV infection in May Past Surgical History CABG Right/Left Renal Transplant Reported Medications Reported Meds & Active Scripts Active Polyethylene Glycol 3350 Powder (Polyethylene Glycol) 17 Gm Pow 17 Gm PO DAILY Reported Sensipar (Cinacalcet) 60 Mg Tab 60 Mg PO DAILY Pravastatin 20 Mg Tab 20 Mg PO DAILY Cardizem (Diltiazem HCl) 120 Mg Tab 240 Mg PO DAILY Aspirin 81 Mg Chew 81 Mg CHEW DAILY Mycophenolate 500 in the morning and 1000 in the evening Tacrolimus 1 Mg Cap 2 Mg PO Q12H Metoprolol Tartrate 25 Mg Tab 50 Mg PO BID Deltasone (Prednisone) Tab 5 Mg PO DAILY Active Ordered Medications Current Medications Medications (Trade) Dose Ordered Sig/Kaylan Route Start Time Stop Time Status Last Admin (Prograf) 2 mg BID@06,18 PO 02/19/17 06:00 (Cellcept) 500 mg DAILY@06 PO 02/19/17 06:00 (Cellcept) 1,000 mg DAILY@18 PO 02/19/17 18:00 Diltiazem HCl 125 mg/Sodium Chloride 125 ml @ 5 mls/hr TITRATE PRN IV 02/18/17 22:00 02/18/17 22:29 Sodium Chloride 1,000 ml @ 100 mls/hr Q10H IV 02/18/17 21:48 02/18/17 22:03 (NS Flush) 2 ml UNSCH PRN IV FLUSH 02/18/17 22:00 (NS Flush) 2 ml BID IV FLUSH 02/19/17 09:00 (Zofran Inj) 4 mg Q6H PRN IVP 02/18/17 22:00 (Tylenol) 650 mg Q6H PRN PO 02/18/17 22:00 (Morphine Inj) 2 mg Q3H PRN IV PUSH 02/18/17 22:00 (Roxicodone) 5 mg Q4H PRN PO 02/18/17 22:00 (Kitty-Colace) 1 tab BID PO 02/19/17 09:00 (Milk Of Magnesia Liq) 30 ml Q12H PRN PO 02/18/17 22:00 (Senokot) 17.2 mg Q12H PRN PO 02/18/17 22:00 (Dulcolax Supp) 10 mg DAILY PRN RECTAL 02/18/17 22:00 (Lactulose Liq) 30 ml DAILY PRN PO 02/18/17 22:00 (Lopressor) 50 mg BID PO 02/19/17 09:00 (Pravachol) 20 mg DAILY PO 02/19/17 09:00 Cefepime HCl 1000 mg/Sodium Chloride 100 ml @ 200 mls/hr Q24H IV 02/18/17 23:00 Family History Noncontributory Social History History of smoking in the past Physical Exam Vital Signs Vital Signs Date Time Temp Pulse Resp B/P (MAP) Pulse Ox O2 Delivery O2 Flow Rate FiO2 02/18/17 22:29 116 132/79 02/18/17 22:27 116 20 132/79 (96) 94 Room Air 02/18/17 20:26 18 95 Room Air 02/18/17 20:26 120 18 95 02/18/17 20:15 98.6 125 18 143/72 (95) 95 Physical Exam GENERAL: He is fatigued and has sweating SKIN: Warm and dry. HEAD: Normocephalic. EYES: No scleral icterus. No injection or drainage. NECK: Supple, trachea midline. No JVD or lymphadenopathy. CARDIOVASCULAR: Irregularly irregular RESPIRATORY: Breath sounds equal bilaterally. No accessory muscle use. GASTROINTESTINAL: Abdomen soft, non-tender, nondistended. MUSCULOSKELETAL: No cyanosis, or edema. BACK: Nontender without obvious deformity. No CVA tenderness. Laboratory Laboratory Tests Test 02/18/17 20:41 White Blood Count 18.6 Red Blood Count 4.30 Hemoglobin 12.3 Hematocrit 38.7 Mean Corpuscular Volume 90.0 Mean Corpuscular Hemoglobin 28.6 Mean Corpuscular Hemoglobin Concent 31.8 Red Cell Distribution Width 14.9 Platelet Count 140 Mean Platelet Volume 9.8 Neutrophils (%) (Auto) 89.4 Lymphocytes (%) (Auto) 4.6 Monocytes (%) (Auto) 5.8 Eosinophils (%) (Auto) 0.0 Basophils (%) (Auto) 0.2 Neutrophils # (Auto) 16.6 Lymphocytes # (Auto) 0.9 Monocytes # (Auto) 1.1 Eosinophils # (Auto) 0.0 Basophils # (Auto) 0.0 CBC Comment DIFF FINAL Differential Comment Prothrombin Time 12.0 Prothromb Time International Ratio 1.1 Activated Partial Thromboplast Time 34.5 Blood Urea Nitrogen 41 Creatinine 3.12 Random Glucose 105 Total Protein 6.5 Albumin 2.5 Calcium Level 7.8 Magnesium Level 1.1 Alkaline Phosphatase 79 Aspartate Amino Transf (AST/SGOT) 32 Alanine Aminotransferase (ALT/SGPT) 18 Total Bilirubin 0.5 Sodium Level 137 Potassium Level 4.4 Chloride Level 109 Carbon Dioxide Level 18.8 Anion Gap 9 Estimat Glomerular Filtration Rate 21 Troponin I 0.04 Result Diagram: 02/18/17204002/18/172040 Imaging Last Impressions Chest X-Ray 02/18/172020 Signed Impressions: Service Date/Time: Saturday, February 18, 2017 20:46 - CONCLUSION: Mild central pulmonary vascular congestion. No alveolar opacities seen. Gabe Nixon MD Renal Ultrasound 02/18/17 0000 Signed Impressions: Service Date/Time: Saturday, February 18, 2017 21:29 - CONCLUSION: Normal sonographic evaluation of renal transplant. Gabe Nixon MD Assessment and Plan Problem List: (1) JACKIE (acute kidney injury) ICD Codes: N17.9 - Acute kidney failure, unspecified Plan: Differential includes the dehydration versus rejection versus ATN CMV is possible however he was treated back in May We will send CMV titers Given the Solu-Medrol 250 mg Follow CBC BMP magnesium and phosphate for tacrolimus level Check urine Transplant Was Unremarkable (2) Atrial fibrillation with RVR ICD Codes: I48.91 - Unspecified atrial fibrillation Plan: Patient is getting diltiazem drip (3) Leukocytosis ICD Codes: D72.829 - Elevated white blood cell count, unspecified Plan: Started on ceftriaxone (4) Renal transplant rejection ICD Codes: T86.11 - Kidney transplant rejection Plan: It is possible we will check it out Sylvester Romano MD Feb 18, 2017 23:48
[2017-02-19] VITALS (28 sets, daily range): BP systolic 98–119; BP diastolic 55–71; PULSE 79–114; RESP 16–22; TEMP 97.6–98.3; O2SAT 95–100
[2017-02-19] MEDS ORDERED: MAGNESIUM SULFATE 1 GM PREMIX 100 ML IV ONE
[2017-02-19] MEDS: CEFEPIME INJ 1,000 MG in SODIUM CHLORIDE 0.9% INJ 100 ML IV SCH ×2 (00:28→23:00)
[2017-02-19] MEDS: TACROLIMUS 1 MG CAP PO SCH ×2 (05:30→19:40)
[2017-02-19] MEDS: MYCOPHENOLATE MOFETIL 500 MG TAB PO SCH ×2 (05:30→19:40)
[2017-02-19 05:31] LABS: AUTOMATED NEUTROPHIL # 12.9 TH/MM3 (1.8-7.7); BASOPHIL % 0.1 % (0.0-2.0); HEMO FLAGS DIFF FINAL; LYMPH % 4.8 % (9.0-44.0); LYMPHOCYTE # 0.7 TH/MM3 (1.0-4.8); MEAN CELL VOLUME 89.6 FL (80.0-100.0); MEAN CORPUSCULAR HEMOGLOBIN 28.6 PG (27.0-34.0); MONO % 2.6 % (0.0-8.0); NEUT % 92.5 % (16.0-70.0); PLATELET COUNT 129 TH/MM3 (150-450); RED BLOOD COUNT 4.58 MIL/MM3 (4.50-5.90); RED CELL DISTRIBUTION WIDTH 14.4 % (11.6-17.2); WHITE BLOOD COUNT 13.9 TH/MM3 (4.0-11.0)
[2017-02-19 06:03] LABS: ALKALINE PHOSPHATASE 83 U/L (45-117); ALT (GPT) 20 U/L (12-78); ANION GAP 11 MEQ/L (5-15); AST (GOT) 18 U/L (15-37); BICARBONATE 20.2 MEQ/L (21.0-32.0); BLOOD UREA NITROGEN 43 MG/DL (7-18); CHLORIDE 105 MEQ/L (98-107); GLOMERULAR FILTRATION RATE 24 ML/MIN (>89); MAGNESIUM 1.8 MG/DL (1.5-2.5); POTASSIUM 4.5 MEQ/L (3.5-5.1); SODIUM (NA) 136 MEQ/L (136-145); TOTAL BILIRUBIN ADULT 0.4 MG/DL (0.2-1.0)
[2017-02-19] MEDS: DILTIAZEM INJ 125 MG in SODIUM CHLORIDE 0.9% INJ 100 ML IV PRN (07:13)
[2017-02-19 07:35] LABS: MRSA PCR NEGATIVE (NEGATIVE); STAPH AUREUS PCR NEGATIVE (NEGATIVE)
[2017-02-19] MEDS: SODIUM CHLOR 0.9% 1000 ML INJ 1,000 ML IV SCH ×2 (07:48→20:30)
[2017-02-19] MEDS: PRAVASTATIN SOD 20 MG TAB PO SCH (08:41)
[2017-02-19] MEDS: SODIUM CHLORIDE 0.9% FLUSH 10 ML FLUSH IV FLUSH SCH ×2 (08:41→19:40)
[2017-02-19] MEDS: DOCUSATE SODIUM 50 MG/SENNA 8.6 MG TAB PO SCH ×2 (08:41→19:39)
[2017-02-19] MEDS ORDERED: METOPROLOL TARTRATE 25 MG TAB PO SCH (09:00)
[2017-02-19] MEDS: predniSONE 20 MG TAB PO SCH (09:00)
--- NOTE | 2017-02-19 11:12 | HHI.PR ---
Subjective Remarks Follow-up for acute kidney injury in a patient with a history of renal transplant, atrial fibrillation. Patient is currently doing well. No chest pain, shortness of breath, fever or chills. Objective Vitals Vital Signs Date Time Temp Pulse Resp B/P (MAP) Pulse Ox O2 Delivery O2 Flow Rate FiO2 02/19/17 07:13 99 103/71 02/19/17 07:10 99 103/71 02/19/17 07:01 97 02/19/17 07:00 102 02/19/17 06:00 96 02/19/17 05:00 100 02/19/17 04:00 99 02/19/17 03:00 106 02/19/17 02:00 112 02/19/17 01:00 114 02/19/17 00:05 02/19/17 00:00 100 02/19/17 00:00 100 02/18/17 23:00 98.8 121 20 125/73 (90) 95 02/18/17 22:29 116 132/79 02/18/17 22:27 116 20 132/79 (96) 94 Room Air 02/18/17 20:26 18 95 Room Air 02/18/17 20:26 120 18 95 02/18/17 20:15 98.6 125 18 143/72 (95) 95 I/O 02/18/17 02/18/17 02/18/17 02/19/17 02/19/17 02/19/17 07:00 15:00 23:00 07:00 15:00 23:00 Intake Total 934 ml 571 ml Output Total 400 ml Balance 534 ml 571 ml Intake IV Total 934 ml 571 ml Output Urine Total 400 ml Result Diagram: 02/19/17 0503 02/19/17 0503 Imaging Last Impressions Chest X-Ray 02/18/172020 Signed Impressions: Service Date/Time: Saturday, February 18, 2017 20:46 - CONCLUSION: Mild central pulmonary vascular congestion. No alveolar opacities seen. Gabe Nixon MD Renal Ultrasound 02/18/17 0000 Signed Impressions: Service Date/Time: Saturday, February 18, 2017 21:29 - CONCLUSION: Normal sonographic evaluation of renal transplant. Gabe Nixon MD Objective Remarks GENERAL: Alert, oriented 3, NAD. Weeks catheter in place SKIN: Warm and dry. HEAD: Normocephalic. EYES: No scleral icterus. No injection or drainage. NECK: Supple, trachea midline. No JVD or lymphadenopathy. CARDIOVASCULAR: Irregularly irregular without murmurs, gallops, or rubs. RESPIRATORY: Breath sounds equal bilaterally. No accessory muscle use. GASTROINTESTINAL: Abdomen soft, non-tender, nondistended. MUSCULOSKELETAL: No cyanosis, or edema. BACK: Nontender without obvious deformity. No CVA tenderness. Procedures None A/P Problem List: (1) Atrial fibrillation with RVR ICD Code: I48.91 - Unspecified atrial fibrillation (2) Renal transplant rejection ICD Code: T86.11 - Kidney transplant rejection (3) JACKIE (acute kidney injury) ICD Code: N17.9 - Acute kidney failure, unspecified (4) Leukocytosis ICD Code: D72.829 - Elevated white blood cell count, unspecified (5) Thrombocytopenia ICD Code: D69.6 - Thrombocytopenia, unspecified Status: Acute Assessment and Plan This is a 46-year-old male with a PMH of Lupus, h/o Renal Transplant 04/05/16, A- fib, CAD s/p CABG, Hyperlipidemia and HTN who was transferred to the ER from [facility] under the care of Dr. Romano for possible renal transplant rejection. Patient complained of generalized malaise, left lower quadrant abdominal pain. Upon arrival to [place], BP 123/72, HR 125 in A. fib, O2 sat 94 % on RA, Afebrile. WBC 18.6. Creatinine 3.12, previously 1.47 on 01/10/17. INR 1.1. - Atrial fibrillation with RVR - Currently on Cardizem drip. We will try to wean it off. - Increase metoprolol to 50mg Q8hrs. - Will consider PO Cardizem if heart rate is not well controlled. - [id number] score probably 1 (vascular disease). He takes Aspirin daily. - Acute kidney injury - History of renal transplant (03/2016). - Possibly pre-renal. With IV fluid, he is doing better. Creatinine improved from 3.12 --> 2.84 - Nephrology is following due to JACKIE and possible renal transplant rejection. - Has a previous hx fo CMV. CMV PCR pending. - Continue CellCept, prednisone, tacrolimus - Thrombocytopenia - Leukocytosis - PLT 140 --> 129. Will continue to monitor. No evidence of any complication from thrombocytopenia. - WBC is improved from 18.6 --> 13.9. No identifiable infectious etiology. - Will continue IV Cefepime. However, if patient remains afebrile, we will consider discontinuing all abx tomorrow. Full code. SCDs. Lamont Willett DO Feb 19, 2017 11:12 am
--- NOTE | 2017-02-19 11:45 | HHI.NPPN ---
Subjective History of Present Illness Hx of kidney transplant 04/06/16 doing better Review of Systems General Constitutional: Fatigue Objective Data Data 02/19/17 02/20/17 19:00 07:00 Intake Total 571 ml Balance 571 ml Intake IV Total 571 ml Vital Signs Date Time Temp Pulse Resp B/P (MAP) Pulse Ox O2 Delivery O2 Flow Rate FiO2 02/19/17 11:27 97.8 83 18 98/55 (69) 98 02/19/17 10:00 86 02/19/17 09:00 98 02/19/17 08:30 97.9 99 18 107/70 (82) 100 02/19/17 08:00 98 02/19/17 07:13 99 103/71 02/19/17 07:10 99 103/71 02/19/17 07:01 97 02/19/17 07:00 102 02/19/17 06:00 96 02/19/17 05:00 100 02/19/17 04:00 99 02/19/17 03:00 106 02/19/17 02:00 112 02/19/17 01:00 114 02/19/17 00:05 02/19/17 00:00 100 02/19/17 00:00 100 02/18/17 23:00 98.8 121 20 125/73 (90) 95 02/18/17 22:29 116 132/79 02/18/17 22:27 116 20 132/79 (96) 94 Room Air 02/18/17 20:26 18 95 Room Air 02/18/17 20:26 120 18 95 02/18/17 20:15 98.6 125 18 143/72 (95) 95 -: 02/19/17 0503 02/19/17 0503 Physical Exam General Appearance: Well Developed, Well Nourished Throat Throat Exam: Oral Mucosa [place] & Moist Neck Neck Exam: Neck Supple Pulmonary Resp Exam: Clear Bilaterally, Breath Sounds Equal Cardiology CV Exam: Arrhythmia Gastrointestinal/Abdomen GI Exam: Soft, Non-Tender, Bowel Sounds Present Extremeties Extremities Exam: No Edema Neurologic Neuro Exam: Alert, Awake Assessment/Plan Problem List: (1) JCAKIE (acute kidney injury) ICD Codes: N17.9 - Acute kidney failure, unspecified Plan: Differential includes the dehydration versus rejection versus ATN CMV is possible however he was treated back in May CMV titers pending low platelets follow this could be due to viral infection US Transplant neg follow on Prednisone, Prograf and Cellcept no evidence of rejection Cr declined with IVF to 2.8 (2) Atrial fibrillation with RVR ICD Codes: I48.91 - Unspecified atrial fibrillation Plan: Patient is getting diltiazem continue to monitor (3) Leukocytosis ICD Codes: D72.829 - Elevated white blood cell count, unspecified Plan: Started on Cefepime Sylvester Romano MD Feb 19, 2017 11:45
[2017-02-19] MEDS: METOPROLOL TARTRATE 50 MG TAB PO SCH ×2 (14:16→22:59)
--- NOTE | 2017-02-19 14:54 | EKG ---
Date Performed: 02/18/2017 Time Performed: 20:42:57 PTAGE: 46 years EKG: ATRIAL FIBRILLATION WITH RAPID VENTRICULAR RESPONSE ST DEVIATION AND MODERATE T-WAVE ABNORM ALITY, CONSIDER ANTEROLATERAL ISCHEMIA ST DEVIATION AND MODERATE T-WAVE ABNORMALITY, CONSIDER INFERIO R ISCHEMIA ABNORMAL ECG PREVIOUS TRACING : 04/05/2016 21.03 Compared to the previous tracing, now is in Afib with RVR a nd ST/T wave changes are now noted DOCTOR: Teo South Interpretating Date/Time 02/19/2017 14:52:59
[2017-02-19 15:58] LABS: BLOOD, URINE SMALL (NEG); GLUCOSE,URINE NEG (NEG); HYALINE CAST, URINE 3 /lpf (RARE); KETONE, URINE NEG (NEG); MUCUS URINE FEW /lpf (OCC); NITRITE,URINE NEG (NEG); PH, URINE 5.5 (5.0-8.5); SQUAMOUS EPITHELIAL CELL URINE <1 /hpf (0-5); URINE COLOR YELLOW (YELLW/STRAW)
[2017-02-19 16:02] LABS: COMMENT (UR) CULTURE INDICATED; CULTURE IF INDICATED CULTURE INDICATED
[2017-02-20] VITALS (27 sets, daily range): BP systolic 95–126; BP diastolic 54–83; PULSE 62–106; RESP 16–20; TEMP 97.3–97.9; O2SAT 95–98
[2017-02-20] MEDS: SODIUM CHLOR 0.9% 1000 ML INJ 1,000 ML IV SCH ×3 (03:48→23:48)
[2017-02-20] MEDS: METOPROLOL TARTRATE 50 MG TAB PO SCH ×3 (06:33→21:03)
[2017-02-20] MEDS: MYCOPHENOLATE MOFETIL 500 MG TAB PO SCH ×2 (06:33→18:17)
[2017-02-20 07:32] LABS: AUTOMATED NEUTROPHIL # 13.8 TH/MM3 (1.8-7.7); BASOPHIL % 0.1 % (0.0-2.0); HEMATOCRIT 37.5 % (39.0-51.0); HEMO FLAGS DIFF FINAL; LYMPH % 4.2 % (9.0-44.0); LYMPHOCYTE # 0.6 TH/MM3 (1.0-4.8); MEAN CELL VOLUME 88.9 FL (80.0-100.0); MEAN CORPUSCULAR HEMOGLOBIN 29.5 PG (27.0-34.0); MEAN CORPUSCULAR HGB CONC 33.1 % (32.0-36.0); MONO % 3.3 % (0.0-8.0); NEUT % 92.4 % (16.0-70.0); PLATELET COUNT 135 TH/MM3 (150-450); RED BLOOD COUNT 4.22 MIL/MM3 (4.50-5.90); RED CELL DISTRIBUTION WIDTH 14.9 % (11.6-17.2)
[2017-02-20 08:12] LABS: BICARBONATE 19.6 MEQ/L (21.0-32.0); POTASSIUM 4.3 MEQ/L (3.5-5.1)
[2017-02-20] MEDS: SODIUM CHLORIDE 0.9% FLUSH 10 ML FLUSH IV FLUSH SCH ×2 (09:00→21:04)
[2017-02-20] MEDS: DOCUSATE SODIUM 50 MG/SENNA 8.6 MG TAB PO SCH ×2 (09:23→20:51)
[2017-02-20] MEDS: PRAVASTATIN SOD 20 MG TAB PO SCH (09:23)
[2017-02-20] MEDS: predniSONE 20 MG TAB PO SCH (09:23)
--- NOTE | 2017-02-20 09:55 | HHI.PR ---
Subjective Remarks Follow-up for acute kidney injury in a patient with a history of renal transplant, atrial fibrillation. Patient is currently doing well. Denies any chest pain, shortness of breath, fever or chills. He is tolerating diet better. No nausea vomiting or diarrhea. Objective Vitals Vital Signs Date Time Temp Pulse Resp B/P (MAP) Pulse Ox O2 Delivery O2 Flow Rate FiO2 02/20/17 09:00 102 02/20/17 08:00 100 02/20/17 07:42 97.3 98 16 121/81 (94) 98 02/20/17 07:00 90 02/20/17 06:00 100 02/20/17 05:00 106 02/20/17 04:00 102 02/20/17 03:00 96 02/20/17 03:00 97.5 99 20 126/83 (97) 96 02/20/17 02:00 94 02/20/17 01:00 92 02/20/17 00:00 94 02/19/17 23:00 97.6 97 16 119/66 (83) 95 02/19/17 23:00 87 02/19/17 22:00 86 02/19/17 21:00 86 02/19/17 20:00 86 02/19/17 19:00 91 02/19/17 19:00 98.3 90 22 106/71 (83) 97 02/19/17 18:01 79 02/19/17 17:00 83 02/19/17 16:01 82 02/19/17 15:30 98.0 79 18 104/60 (75) 95 02/19/17 15:00 83 02/19/17 14:00 84 02/19/17 13:00 86 02/19/17 12:01 87 02/19/17 11:27 97.8 83 18 98/55 (69) 98 02/19/17 11:00 85 02/19/17 10:00 86 I/O 02/19/17 02/19/17 02/19/17 02/20/17 02/20/17 02/20/17 07:00 15:00 23:00 07:00 15:00 23:00 Intake Total 934 ml 571 ml 960 ml 480 ml Output Total 400 ml 600 ml 250 ml Balance 534 ml 571 ml 360 ml 230 ml Intake Oral 960 ml 480 ml IV Total 934 ml 571 ml Output Urine Total 400 ml 600 ml 250 ml # Bowel Movements 0 Result Diagram: 02/20/17 0630 02/20/1730 Imaging Last Impressions Chest X-Ray 02/18/172020 Signed Impressions: Service Date/Time: Saturday, February 18, 2017 20:46 - CONCLUSION: Mild central pulmonary vascular congestion. No alveolar opacities seen. Gabe Nixon MD Renal Ultrasound 02/18/17 0000 Signed Impressions: Service Date/Time: Saturday, February 18, 2017 21:29 - CONCLUSION: Normal sonographic evaluation of renal transplant. Gabe Nixon MD Objective Remarks GENERAL: Alert, oriented 3, NAD. SKIN: Warm and dry. HEAD: Normocephalic. EYES: No scleral icterus. No injection or drainage. NECK: Supple, trachea midline. No JVD or lymphadenopathy. CARDIOVASCULAR: Irregularly irregular without murmurs, gallops, or rubs. RESPIRATORY: Breath sounds equal bilaterally. No accessory muscle use. GASTROINTESTINAL: Abdomen soft, non-tender, nondistended. MUSCULOSKELETAL: No cyanosis, or edema. BACK: Nontender without obvious deformity. No CVA tenderness. Procedures None A/P Problem List: (1) Atrial fibrillation with RVR ICD Code: I48.91 - Unspecified atrial fibrillation (2) Renal transplant rejection ICD Code: T86.11 - Kidney transplant rejection (3) JACKEI (acute kidney injury) ICD Code: N17.9 - Acute kidney failure, unspecified (4) Leukocytosis ICD Code: D72.829 - Elevated white blood cell count, unspecified (5) Thrombocytopenia ICD Code: D69.6 - Thrombocytopenia, unspecified Status: Acute Assessment and Plan This is a 46-year-old male with a PMH of Lupus, h/o Renal Transplant 04/05/16, A- fib, CAD s/p CABG, Hyperlipidemia and HTN who was transferred to the ER from [facility] under the care of Dr. Romano for possible renal transplant rejection. Patient complained of generalized malaise, left lower quadrant abdominal pain. Upon arrival to [place], BP 123/72, HR 125 in A. fib, O2 sat 94 % on RA, Afebrile. WBC 18.6. Creatinine 3.12, previously 1.47 on 01/10/17. INR 1.1. - Atrial fibrillation with RVR - Currently on Cardizem drip. We will try to wean it off today. - Continue metoprolol to 50mg Q8hrs. - Re-start home medication long-acting diltiazem 240 mg daily. - [id number] score 1 (vascular disease). He takes Aspirin daily. - Acute kidney injury - History of renal transplant (03/2016). - Possibly pre-renal. With IV fluid, he is doing better. Creatinine improved from 3.12 --> 2.84 --> 2.16 - Nephrology is following due to JACKIE and possible renal transplant rejection. - Has a previous hx fo CMV. CMV PCR pending. - Continue CellCept, prednisone, tacrolimus - Thrombocytopenia - Leukocytosis - PLT 140 --> 129. Will continue to monitor. No evidence of any complication from thrombocytopenia. - WBC is improved from 18.6 --> 13.9 --> 15. This may be due to steroid use. - Will continue IV Cefepime. Urine culture pending. If negative, will discontinue cefepime. Full code. SCDs. Discharge plan: If okay with nephrology, patient can be discharged today or tomorrow morning. Lamont Willett DO Feb 20, 2017 9:55 am
[2017-02-20] MEDS ORDERED: DILTIAZEM-CD 240 MG CAP ER PO SCH (10:00)
--- NOTE | 2017-02-20 13:58 | HHI.NPPN ---
Subjective History of Present Illness Hx of kidney transplant 04/06/16 doing better Additional Remarks He has very high tacrolimus level Review of Systems General Constitutional: Fatigue Objective Data Data Vital Signs Date Time Temp Pulse Resp B/P (MAP) Pulse Ox O2 Delivery O2 Flow Rate FiO2 02/20/17 12:24 101 02/20/17 11:33 87 02/20/17 11:03 97.9 96 16 109/81 (90) 95 02/20/17 10:23 99 02/20/17 09:00 102 02/20/17 08:00 100 02/20/17 07:42 97.3 98 16 121/81 (94) 98 02/20/17 07:00 90 02/20/17 06:00 100 02/20/17 05:00 106 02/20/17 04:00 102 02/20/17 03:00 96 02/20/17 03:00 97.5 99 20 126/83 (97) 96 02/20/17 02:00 94 02/20/17 01:00 92 02/20/17 00:00 94 02/19/17 23:00 97.6 97 16 119/66 (83) 95 02/19/17 23:00 87 02/19/17 22:00 86 02/19/17 21:00 86 02/19/17 20:00 86 02/19/17 19:00 91 02/19/17 19:00 98.3 90 22 106/71 (83) 97 02/19/17 18:01 79 02/19/17 17:00 83 02/19/17 16:01 82 02/19/17 15:30 98.0 79 18 104/60 (75) 95 02/19/17 15:00 83 02/19/17 14:00 84 -: 02/20/17 0630 02/20/17 0630 Microbiology 02/19/17 Urine Culture - Preliminary, Resulted NO GROWTH IN 24 HOURS. Additional Information Tacrolimus 23.2 Physical Exam General Appearance: Well Developed, Well Nourished Throat Throat Exam: Oral Mucosa [place] & Moist Neck Neck Exam: Neck Supple Pulmonary Resp Exam: Clear Bilaterally, Breath Sounds Equal Cardiology CV Exam: Arrhythmia Gastrointestinal/Abdomen GI Exam: Soft, Non-Tender, Bowel Sounds Present Extremeties Extremities Exam: No Edema Neurologic Neuro Exam: Alert, Awake Assessment/Plan Problem List: (1) JACKIE (acute kidney injury) ICD Codes: N17.9 - Acute kidney failure, unspecified Plan: This is likely dehydration as patient creatinine is declining however his tacrolimus his high I stop the tacrolimus and was and he has not received it today Suspect drug to drug interaction between tacrolimus and diltiazem and this is stopped May use amiodarone he used to take Multaq in past, start him on Eliquis 2.5 mg twice a day Follow tacrolimus level (2) Atrial fibrillation with RVR ICD Codes: I48.91 - Unspecified atrial fibrillation Plan: Patient is getting diltiazem continue to monitor (3) Leukocytosis ICD Codes: D72.829 - Elevated white blood cell count, unspecified Plan: Started on Cefepime Sylvester Romano MD Feb 20, 2017 13:58
[2017-02-20] MEDS: APIXABAN 2.5 MG TABLET PO SCH ×2 (15:01→21:03)
[2017-02-20] MEDS: AMIODARONE 200 MG TAB PO SCH (15:01)
[2017-02-20] MEDS: CEFEPIME INJ 1,000 MG in SODIUM CHLORIDE 0.9% INJ 100 ML IV SCH (23:00)
[2017-02-21] VITALS (11 sets, daily range): BP systolic 125–126; BP diastolic 62–83; PULSE 70–90; RESP 14–20; TEMP 97.1–97.5; O2SAT 96
[2017-02-21] MEDS: AMIODARONE 200 MG TAB PO SCH (03:11)
[2017-02-21 05:39] LABS: HEMATOCRIT 37.1 % (39.0-51.0); HEMO FLAGS DIFF FINAL; LYMPH % 5.6 % (9.0-44.0); LYMPHOCYTE # 0.7 TH/MM3 (1.0-4.8); MEAN CORPUSCULAR HEMOGLOBIN 28.3 PG (27.0-34.0); MEAN CORPUSCULAR HGB CONC 31.4 % (32.0-36.0); MONO % 5.4 % (0.0-8.0); PLATELET COUNT 153 TH/MM3 (150-450); RED BLOOD COUNT 4.12 MIL/MM3 (4.50-5.90); RED CELL DISTRIBUTION WIDTH 14.9 % (11.6-17.2); WHITE BLOOD COUNT 12.4 TH/MM3 (4.0-11.0)
[2017-02-21 05:42] LABS: BICARBONATE 20.4 MEQ/L (21.0-32.0); MAGNESIUM 1.6 MG/DL (1.5-2.5); POTASSIUM 4.6 MEQ/L (3.5-5.1)
[2017-02-21] MEDS: MYCOPHENOLATE MOFETIL 500 MG TAB PO SCH (05:56)
[2017-02-21] MEDS: METOPROLOL TARTRATE 50 MG TAB PO SCH ×2 (05:56→12:59)
[2017-02-21] MEDS: DOCUSATE SODIUM 50 MG/SENNA 8.6 MG TAB PO SCH (09:00)
[2017-02-21] MEDS: SODIUM CHLORIDE 0.9% FLUSH 10 ML FLUSH IV FLUSH SCH (09:00)
[2017-02-21] MEDS: APIXABAN 2.5 MG TABLET PO SCH (09:27)
[2017-02-21] MEDS: predniSONE 20 MG TAB PO SCH (09:27)
[2017-02-21] MEDS: PRAVASTATIN SOD 20 MG TAB PO SCH (09:27)
[2017-02-21] MEDS: SODIUM CHLOR 0.9% 1000 ML INJ 1,000 ML IV SCH (09:29)
--- NOTE | 2017-02-21 09:36 | HHI.PR ---
Subjective Remarks Follow-up for acute kidney injury in a patient with a history of renal transplant, atrial fibrillation. Patient is currently doing well. No chest pain, shortness of breath, fever or chills. Tolerating diet well. Objective Vitals Vital Signs Date Time Temp Pulse Resp B/P (MAP) Pulse Ox O2 Delivery O2 Flow Rate FiO2 02/21/17 06:00 78 02/21/17 05:00 78 02/21/17 04:00 80 02/21/17 03:00 97.1 78 20 126/83 (97) 96 02/21/17 02:59 79 02/21/17 02:00 74 02/21/17 01:00 70 02/21/17 00:00 72 02/20/17 23:00 62 02/20/17 23:00 97.4 73 18 121/78 (92) 96 02/20/17 22:00 72 02/20/17 21:00 70 02/20/17 20:00 72 02/20/17 19:00 97.5 69 16 110/77 (88) 97 02/20/17 19:00 64 02/20/17 18:00 72 02/20/17 17:00 74 02/20/17 16:00 74 02/20/17 15:07 97.9 78 16 95/54 (68) 96 02/20/17 15:00 80 02/20/17 14:00 88 02/20/17 13:00 90 02/20/17 12:24 101 02/20/17 11:33 87 02/20/17 11:03 97.9 96 16 109/81 (90) 95 02/20/17 10:23 99 I/O 02/20/17 02/20/17 02/20/17 02/21/17 02/21/17 02/21/17 07:00 15:00 23:00 07:00 15:00 23:00 Intake Total 480 ml 188 ml 5419 ml 480 ml Output Total 250 ml 1420 ml 900 ml Balance 230 ml 188 ml 3999 ml -420 ml Intake Oral 480 ml 1880 ml 480 ml IV Total 188 ml 3539 ml Output Urine Total 250 ml 1420 ml 900 ml # Voids 3 # Bowel Movements 1 Result Diagram: 02/21/17 0434 02/21/174 Imaging Last Impressions Chest X-Ray 02/18/172020 Signed Impressions: Service Date/Time: Saturday, February 18, 2017 20:46 - CONCLUSION: Mild central pulmonary vascular congestion. No alveolar opacities seen. Gabe Nixon MD Renal Ultrasound 02/18/17 0000 Signed Impressions: Service Date/Time: Saturday, February 18, 2017 21:29 - CONCLUSION: Normal sonographic evaluation of renal transplant. Gabe Nixon MD Objective Remarks GENERAL: Alert, oriented 3, NAD. SKIN: Warm and dry. HEAD: Normocephalic. EYES: No scleral icterus. No injection or drainage. NECK: Supple, trachea midline. No JVD or lymphadenopathy. CARDIOVASCULAR: Regular rate and rhythm without murmurs, gallops, or rubs. RESPIRATORY: Breath sounds equal bilaterally. No accessory muscle use. GASTROINTESTINAL: Abdomen soft, non-tender, nondistended. MUSCULOSKELETAL: No cyanosis, or edema. BACK: Nontender without obvious deformity. No CVA tenderness. Procedures None A/P Problem List: (1) Atrial fibrillation with RVR ICD Code: I48.91 - Unspecified atrial fibrillation (2) Renal transplant rejection ICD Code: T86.11 - Kidney transplant rejection (3) JACKIE (acute kidney injury) ICD Code: N17.9 - Acute kidney failure, unspecified (4) Leukocytosis ICD Code: D72.829 - Elevated white blood cell count, unspecified (5) Thrombocytopenia ICD Code: D69.6 - Thrombocytopenia, unspecified Status: Acute Assessment and Plan This is a 46-year-old male with a PMH of Lupus, h/o Renal Transplant 04/05/16, A- fib, CAD s/p CABG, Hyperlipidemia and HTN who was transferred to the ER from [facility] under the care of Dr. Romano for possible renal transplant rejection. Patient complained of generalized malaise, left lower quadrant abdominal pain. Upon arrival to [place], BP 123/72, HR 125 in A. fib, O2 sat 94 % on RA, Afebrile. WBC 18.6. Creatinine 3.12, previously 1.47 on 01/10/17. INR 1.1. - Atrial fibrillation with RVR - Cardizem drip weaned off. - Continue metoprolol to 50mg Q8hrs. nephrology started patient on amiodarone 200 mg every 12 hours. - [id number] score 1 (vascular disease). He takes Aspirin daily. - Acute kidney injury - History of renal transplant (03/2016). - Possibly pre-renal. With IV fluid, he is doing better. Creatinine improved from 3.12 --> 2.84 --> 2.16 --> 1.69 - Nephrology is following due to JACKIE and less likely, renal transplant rejection. - Has a previous hx fo CMV. CMV PCR pending. - Continue CellCept, prednisone. Tacrolimus is on hold, level pending. - Thrombocytopenia - Leukocytosis - PLT 140 ==> 153. No evidence of any complication from thrombocytopenia. - WBC is improved from 18.6 --> 12.4. - Will d/c Cefepime. Urine cx shows no growth. Full code. SCDs. Discharge plan: Patient can be discharged home once cleared by Nephrology. Lamont Willett DO Feb 21, 2017 9:35 am
--- NOTE | 2017-02-21 11:46 | HHI.NPPN ---
Subjective History of Present Illness Hx of kidney transplant 04/06/16 doing better Additional Remarks He is doing better Review of Systems General Constitutional: Fatigue Objective Data Data Vital Signs Date Time Temp Pulse Resp B/P (MAP) Pulse Ox O2 Delivery O2 Flow Rate FiO2 02/21/17 09:30 97.5 86 14 125/82 (96) 96 02/21/17 08:14 86 02/21/17 06:00 78 02/21/17 05:00 78 02/21/17 04:00 80 02/21/17 03:00 97.1 78 20 126/83 (97) 96 02/21/17 02:59 79 02/21/17 02:00 74 02/21/17 01:00 70 02/21/17 00:00 72 02/20/17 23:00 62 02/20/17 23:00 97.4 73 18 121/78 (92) 96 02/20/17 22:00 72 02/20/17 21:00 70 02/20/17 20:00 72 02/20/17 19:00 97.5 69 16 110/77 (88) 97 02/20/17 19:00 64 02/20/17 18:00 72 02/20/17 17:00 74 02/20/17 16:00 74 02/20/17 15:07 97.9 78 16 95/54 (68) 96 02/20/17 15:00 80 02/20/17 14:00 88 02/20/17 13:00 90 02/20/17 12:24 101 -: 02/21/17 0434 02/21/17 0434 Physical Exam General Appearance: Well Developed, Well Nourished Throat Throat Exam: Oral Mucosa [place] & Moist Neck Neck Exam: Neck Supple Pulmonary Resp Exam: Clear Bilaterally, Breath Sounds Equal Cardiology CV Exam: Arrhythmia Gastrointestinal/Abdomen GI Exam: Soft, Non-Tender, Bowel Sounds Present Extremeties Extremities Exam: No Edema Neurologic Neuro Exam: Alert, Awake Assessment/Plan Problem List: (1) JACKIE (acute kidney injury) ICD Codes: N17.9 - Acute kidney failure, unspecified Plan: ARF resolved Cr 1.6 on amiodarone he used to take Multaq in past, start him on Eliquis 2.5 mg twice a day Follow tacrolimus level OK to dc restart Tacrolimus (2) Atrial fibrillation with RVR ICD Codes: I48.91 - Unspecified atrial fibrillation Plan: Patient is on Metoprolol Amiodarone Eliquis but wants Multaq due to side effects with Amiodarone (3) Leukocytosis ICD Codes: D72.829 - Elevated white blood cell count, unspecified Plan: Started on Cefepime Sylvester Romano MD Feb 21, 2017 11:46
[2017-02-21] MEDS ORDERED: TACROLIMUS 1 MG CAP PO ONE (12:30)
[2017-02-21] MEDS ORDERED: MYCO500 PO ×2 (14:52)
[2017-02-21] MEDS ORDERED: TACR1 PO (14:52)
[2017-02-21] MEDS ORDERED: APIX2.5T PO (14:52)
[2017-02-21] MEDS ORDERED: METO25TA3 PO (14:52)
[2017-02-21] MEDS ORDERED: MULT400T PO (14:52)
[2017-02-21] MEDS ORDERED: TACROLIMUS 1 MG CAP PO SCH (18:00)
[2017-02-22] MEDS ORDERED: DRONEDARONE 400 MG TAB PO SCH (09:00)
== END 2017-02-21 16:22 | disposition home or self-care (01) | DRG 700 ==
LOC: NEPC 20:06 → NEDA 21:50 → HCIN 23:19
PROVIDERS: ADMIT Hospitalist; ATTEND Hospitalist
DX: T86.12 Kidney transplant failure (principal); D69.6 Thrombocytopenia, unspecified; M32.9 Systemic lupus erythematosus, unspecified; I48.91 Unspecified atrial fibrillation; E86.0 Dehydration; I10 Essential (primary) hypertension; E78.5 Hyperlipidemia, unspecified; F17.210 Nicotine dependence, cigarettes, uncomplicated; I25.10 Atherosclerotic heart disease of native coronary artery without angina pectoris; D72.829 Elevated white blood cell count, unspecified; T45.1X5A Adverse effect of antineoplastic and immunosuppressive drugs, initial encounter; T46.1X5A Adverse effect of calcium-channel blockers, initial encounter; Y83.0 Surgical operation with transplant of whole organ as the cause of abnormal reaction of the patient, or of later complication, without mention of misadventure at the time of the procedure; Z79.82 Long term (current) use of aspirin; Z95.1 Presence of aortocoronary bypass graft; I25.2 Old myocardial infarction
CPT/HCPCS: 71010; 76776; 80053; 80069; 80197; 81001; 83735; 84100; 84484; 85025; 85610; 85730; 86038; 86160; 87086; 87205; 87497; 87640; 87641; 87799; 93005; 99285; J0692; J2930; J3475; J7030; J7507; J7512; J7517